=== PATIENT | female | born 1945 | race Caucasian/White ===

== ENCOUNTER → 2019-02-17 12:00 | Outpatient (CLI) | payer MEDICARE, SELFPAY ==
--- NOTE | 2019-02-17 12:09 | BI_ITS ---
MAMMOGRAPHY - BILATERAL SCREENING REASON FOR EXAM: Female, 73 years old. Routine annual screening examination. PERTINENT HISTORY: Non-contributory. TECHNIQUE: Digital bilateral breast thomas (3D mammographic acquisition) in the CC and MLO projections. 2-D mediolateral oblique (MLO) and craniocaudad (CC) views of both breasts were obtained. CAD: Full Field Digital Mammography with Computer Added Detection was performed. COMPARISON: Comparison is made with prior outside examination of November 28, 2016. FINDINGS: Breast Composition: There are scattered areas of fibroglandular density. There are no dominant masses or suspicious calcifications. No other significant abnormalities are identified. There has been no significant change since the prior study. BI/SCREEN MAMM (CAD) W/THOMAS BILAT IMPRESSION: Stable bilateral screening mammogram. Yearly follow-up mammogram recommended. (A) ASSESSMENT CATEGORY: BIRADS Category 1: Negative. A letter regarding these results will be sent to the patient by the facility within 30 days. Approximately 10% of breast cancers are not detected by mammography. A normal mammogram should not delay biopsy of a clinically suspicious abnormality. [id number] Electronically Signed: Elbert Givens, at 12:59 EST , Service support ,
== END ==
PROVIDERS: Family Provider Family Medicine; PCP Family Medicine; Referring Provider Obstetrics & Gynecology; Visit Provider Obstetrics & Gynecology
DX: Z12.31 Encounter for screening mammogram for malignant neoplasm of breast (principal)
CPT/HCPCS: 77063; 77067

== ENCOUNTER → 2019-08-03 | Outpatient (CLI) | payer MEDICARE, SELFPAY ==
--- NOTE | 2019-08-03 09:49 | BD_ITS ---
STUDY: DUAL ENERGY X-RAY ABSORPTIOMETRY / DXA REASON FOR EXAM: Female, 74 years old. ELEVATOR TECHNICIAN- EARLY AT 43 YRS OLD -- HX OF HRT IN PAST -- TAKES THYROID MEDICATION -- TAKES CALCIUM AND MULTIVITAMIN -- DOES MODERATE AMOUNT OF EXERCISE -- FAMILY HX OF OSTEO- MOTHER AND FATHER -- NO LESLY TECHNIQUE: Bone Mineral Density (BMD) measurements of lumbar spine and bilateral hips were obtained. COMPARISON: None. FINDINGS: Lumbar Spine (L1-L4): g/cm2 (1.125) / T-score (0.5) / Z-score (1.3) Findings are suggestive of normal bone density with a low fracture risk. Left Femur Total: g/cm2 (0.964) / T-score (-0.3) / Z-score (1.3) Left Femoral Neck: g/cm2 (0.816) / T-score (-1.6) / Z-score (0.2) Right Femur Total: g/cm2 (0.998) / T-score (-0.1) / Z-score (1.8) Right Femoral Neck: g/cm2 (0.866) / T-score (-1.2) / Z-score (0.6) BD/Dexa Bone Density Study IMPRESSION: The patient is considered osteopenic as outlined below according to World Michael Organization (WHO) criteria with a moderate fracture risk. Reference Information: The T-score is the number of standard deviations above or below the standard which is normal for young adults at their peak bone mineral density. The World Health Organization (WHO) interprets the T-scores as follows: Above -1 Normal bone density Between -1 and -2.5 Osteopenia Equal to / or below -2.5 Osteoporosis As a practical clinical guideline, osteopenia may be graded as follows: Mild -1 through -1.5 Moderate -1.6 through -2.0 Severe -2.1 through -2.4 The Z-score is the number of standard deviations above or below age-matched controls. A Z-score of less than -1.5 would be considered abnormal. References: 1. NIH Osteoporosis and Related Bone Diseases http://www.osteo.org 2. International Society for Clinical Densitometry http://www.iscd.org 3. National Osteoporosis Foundation http://www.nof.org Electronically Signed: Elbert Givens, at 8:52 EDT , Service support ,
--- NOTE | 2019-08-03 10:08 | ECHOCS_ITS ---
Reason For Study: Mitral Valve Prolapse Procedure This was a 2D Doppler, Color Flow transthoracic echocardiogram. The study was technically difficult. Contrast injection was performed. Exam performed in department. Left Ventricle Normal LV size. Left ventricular systolic function is normal. The estimated ejection fraction is 60 %. No evidence for diastolic dysfunction. No regional wall motion abnormalities noted. Right Ventricle Normal RV size. Normal systolic function. Atria Normal left atrium. Normal right atrium. No doppler evidence for ASD. Mitral Valve There is no mitral annular calcification. Normal mitral valve. Mild (1+) mitral valve insufficiency. Tricuspid Valve Normal tricuspid valve. Trivial tricuspid valve insufficiency. Right ventricular systolic pressure estimated to be 23 mmHg. Aortic Valve Trisinus/trileaflet aortic valve. Normal aortic valve. Trivial aortic valve insufficiency. Pulmonic Valve The pulmonic valve is not well visualized. Trivial pulmonic valve insufficiency. Great Vessels Normal sized aortic root. Pericardium/Pleural No pericardial effusion. Medication 22 gauge I.V. with prn adaptor inserted into right arm. Diluted definity 2ml given slow IV push to enhance endocardial definition. MMode/2D Measurements & Calculations LVIDd: 4.6 cm IVSd: 0.91 cm Ao root diam: 3.0 cm LVIDs: 2.9 cm LVPWd: 0.96 cm RVDd: 3.1 cm FS: 36.3 % LAV(MOD-bp): 29.4 ml LVAd ap4: 25.8 cm2 SV(MOD-sp4): 50.3 ml LAV(MOD-bp) Indexed: 16.9 ml/m2 EDV(MOD-sp4): 77.1 ml LAV(MOD-sp2): 31.7 ml EDV(sp4-el): 80.1 ml LAV(MOD-sp4): 25.0 ml LVAs ap4: 13.9 cm2 ESV(MOD-sp4): 26.8 ml ESV(sp4-el): 27.0 ml EF(MOD-sp4): 65.2 % EF(sp4-el): 66.3 % SV(sp4-el): 53.1 ml LA A4 area: 11.0 cm2 LA dimension(2D): 3.6 cm RA A4 area: 8.9 cm2 Time Measurements MV dec time: 0.19 sec Doppler Measurements & Calculations MV E max brandon: 59.1 cm/sec Lat Peak E' Brandon: 7.4 cm/sec Med Peak E' Brandon: 7.2 cm/sec MV A max brandon: 91.7 cm/sec E/E' lat: 7.9 E/E' med: 8.2 MV E/A: 0.64 Ao V2 max: 109.8 cm/sec AI max brandon: 341.5 cm/sec LV V1 max: 91.4 cm/sec Ao max P.8 mmHg AI max P.7 mmHg LV V1 max P.3 mmHg AI dec slope: 186.0 cm/sec2 AI P1/2t: 537.7 msec PA V2 max: 76.9 cm/sec TR max brandon: 224.5 cm/sec TR max P.2 mmHg Interpretation Summary The study was technically difficult. Contrast injection was performed. Left ventricular systolic function is normal. The estimated ejection fraction is 60 %. Mild (1+) mitral valve insufficiency. Trivial tricuspid valve insufficiency. Trivial aortic valve insufficiency. Trivial pulmonic valve insufficiency. Right ventricular systolic pressure estimated to be 23 mmHg. No evidence for diastolic dysfunction. Ordering Physician: Odalys Garcia Referring Physician: Odalys Garcia Performed By: Jade Das RDCS
== END | disposition home or self-care (01) ==
PROVIDERS: PCP Internal Medicine; Referring Provider Internal Medicine; Visit Provider Internal Medicine
DX: I34.1 Nonrheumatic mitral (valve) prolapse (principal); Z78.0 Asymptomatic menopausal state
CPT/HCPCS: 77080; 93306; Q9957; A4216; C8929

== ENCOUNTER 2020-03-08 10:23 | Observation (INO) | payer MEDICARE, SELFPAY ==
[2020-03-08 10:23] VITALS: BP 174/72; PULSE 79; RESP 20; TEMP 36.2; O2SAT 97; BMI 26.5
--- NOTE | 2020-03-08 10:28 | ED.RN ---
PT'S DAUGHTER BHUPENDRA EM WOULD LIKE UPDATES [phone]
--- NOTE | 2020-03-08 10:31 | NURSING ---
NO OLD EKGS
--- NOTE | 2020-03-08 10:39 | EKG12_ITS ---
Test Reason : CP Blood Pressure : / mmHG Vent. Rate : 072 BPM Atrial Rate : 072 BPM P-R Int : 160 ms QRS Dur : 072 ms QT Int : 422 ms P-R-T Axes : 033 025 026 degrees QTc Int : 462 ms Normal sinus rhythm Normal ECG Confirmed by LEANNE MARTINEZ, TATE ([id number]), resource economist TELMA HAM ([id number]) on 03/13/2020 11:03:31 AM Referred By: Confirmed By:RALPH PERDOMO MD
--- NOTE | 2020-03-08 10:45 | ED.VIS.GEN ---
History of Present Illness Chief Complaint: Chest Pain Informant: Patient Narrative: 74-year-old female presenting with chest pain. She states at about 9:00 she started having a sharp chest pain in the right side of her chest which bent her over. She states it started to feel like pressure. She denies any radiation of the pain. Prior to this event she was well. She relates that she thought it was her mitral valve flaring up. She states she has not a flareup in this in 10 years. Denies fever, cough, shortness of breath. No leg swelling. No history of DVT/PE. Past Medical History - Allergies and Home Meds Allergies/Adverse Reactions: Allergies No Known Allergies Allergy (Verified 03/08/20 10:23) Prior records reviewed: No Past Medical History: - - Benign positional vertigo, hypertension, insomnia, nonrheumatic mitral valve prolapse Surgical History: noncontributory Lives: Alone Smoking Status: Never smoker Alcohol: None Drugs: None - Family History Paternal Family History: Reports: Heart Disease Review of Systems General: Denies: Chills, Fever, Malaise Eyes: Denies: Visual changes - bilaterally, Diplopia ENT: Denies: Rhinorrhea, Sore throat Cardiovascular: Reports: Chest pain, Heart racing Respiratory: Denies: Dyspnea, Cough, Sputum Gastrointestinal: Denies: Abdominal pain, Nausea, Vomiting Genitourinary: Denies: Dysuria, Hematuria Musculoskeletal: Denies: Myalgias, Arthralgias Skin: Denies: Rash, Abscess Neurological: Denies: Headache, Parasthesia, Numbness Psych: Denies: Depression, Anxiety Physical Exam Vital Signs/Narrative: Vital Signs Temp Pulse Resp BP Pulse Ox 03/08/20 10:23 97.2 F L 79 20 H 174/72 H 97 Inital Vital Signs reviewed: Yes General: Well nourished, No Acute Distress Head: Normocephalic, Atraumatic Eyes: Perrl, EOMI. Negative for: Pale conjunctiva ENT: Moist mucous membranes, No rhinorrhea Cardiovascular: Regular rate, Regular rhythm Respiratory: No distress, CTA bilaterally Abdomen: Soft, Nontender, Nondistended Extremities: Nontender, No edema Skin: Normal color, No rash. Negative for: Cyanosis, Diaphoresis Neurological: Alert, Oriented x3, Cranial nerves II-XII grossly intact Psychological: Normal affect, Normal Mood Diagnostic/Tx/Re-eval - Rhythm Strip Rhythm Strip: Sinus Rhythm Rate: 72 - EKG Initial EKG Interpretation: Sinus Rhythm, No Acute Injury Pattern - Medical Decision Making 74-year-old female with history of hypertension and mitral valve prolapse presents for chest pain on the right side of her chest.. The patient states that her pain was 10 but is now 1. She was given aspirin. EKG performed on arrival shows a sinus rhythm of 72 bpm without signs of ischemic change as interpreted by myself. Chest x-ray is negative for acute findings as interpreted by myself. Patient's D-dimer was elevated and had CTA which was negative for acute findings heart score is 4. Discussed with hospitalist who will admit the patient for observation. Patient given aspirin. 24 mg. Patient admitted to the floor in stable condition. Impression: 1. Chest pain ED Disposition - Plan for ED Patient: Disposition: Acute [facility]
[2020-03-08] MEDS: Aspirin 81 MG TAB.CHEW 324 MG PO (10:47)
[2020-03-08 10:53] LABS: Absolute Neutrophil Count 4.5 X10^3/uL (2.0-7.7); Basophil# 0.04 X10^3/uL; Basophil% 0.6 % (0-1); Eosinophil# 0.14 X10^3/uL; Eosinophils% 2.1 % (0-5); Hematocrit 40.2 % (37-47); Hemoglobin 13.4 g/dL (12.0-15.0); Lymphocyte % 25.1 % (19-41); Mean Corp Hgb Conc 33.3 g/dL (32-36); Mean Corpuscular Hgb 30.2 pg (27.0-32.0); Mean Corpuscular Volume 90.5 fL (81-99); Mean Platelet Vol. 10.8 fl (6.2-12.0); Monocyte# 0.41 X10^3/uL; Monocyte% 6.1 % (0-10); NRBC Flagged by Analyzer 0 % (0-5); Neutrophil # 4.45 X10^3/uL (2.7-7.7); Neutrophil % 65.8 % (47-70); Platelet Count 308 K/mm3 (150-450); RBC Distribution Width CV 11.6 % (11.6-14.6); RBC Distribution Width SD 38.3 fl (35.1-43.9); Red Blood Count 4.44 M/mm3 (4.2-5.4); White Blood Count 6.8 K/mm3 (4.4-11.0)
--- NOTE | 2020-03-08 11:00 | RAD_ITS ---
STUDY: X-RAY CHEST REASON FOR EXAM: Female, 74 years old. PT C/O RIGHT SIDED CHEST PAIN/UPPER ABD, LEFT HAND WEAKNESS TECHNIQUE: Single AP portable view of the chest. COMPARISON: None. FINDINGS: EKG electrodes are seen. The lungs are clear and expanded. There is no demonstrated pleural abnormality. Normal size heart. Normal mediastinum and dameon. Normal visualized pulmonary arteries. Normal visualized aortic arch and descending thoracic aorta. Normal visualized thoracic spine. Normal visualized ribs, clavicles, and shoulders. There is no demonstrated abnormality of the visualized soft tissue structures of the upper abdomen. RAD/Chest 1 View (Portable) IMPRESSION: Normal x-ray examination of the chest. Electronically Signed: Elbert Givens MD at 11:48 EST , Service support ,
[2020-03-08 11:18] LABS: Anion Gap 6 (5-15); BUN 12 mg/dL (7-18); BUN/Creat Ratio 14.1 RATIO (10-20); Chloride 106 mmol/L (98-107); Creatinine, Serum 0.85 mg/dL (0.55-1.02); EST Glomerular Filtration Rate 69 mL/min (>60); Est Glom Filt Rate - Afr Amer 84 mL/min (>60); Estimated Creatinine Clearance 48.76 ml/min; Glucose 96 mg/dL (74-106); Potassium 3.7 mmol/L (3.5-5.1); Sodium Level 141 mmol/L (136-145)
[2020-03-08 11:29] LABS: D-Dimer Quantitative (DVT/PE) 1.54 FEU/ug/m (0.27-0.49)
--- NOTE | 2020-03-08 11:35 | CT_ITS ---
STUDY: CTA CHEST REASON FOR EXAM: Female, 74 years old. R SIDED CP/UPPER ABD PAIN. ELEVATED D-DIMER. RADIATION DOSAGE (If Supplied By Facility): CTDIvol = ( 8.04 ) mGy, DLP = ( 343.69 ) mGycm TECHNIQUE: The examination was performed with the intravenous administration of IV 100mL Isovue-300. Post-processing of the angiographic images was performed, with multiplanar reformation and 3D reconstruction. Individualized dose optimization techniques were used for this CT. COMPARISON: Comparison is made with prior chest radiograph done earlier today. FINDINGS: Small benign appearing bilateral axillary lymph nodes. Normal enhancement of the main pulmonary artery and right and left pulmonary arteries. Normal enhancement of the bilateral peripheral pulmonary arteries. There is no demonstrated pulmonary embolism. Normal thoracic aorta and visualized great vessels. There is no demonstrated aortic dissection. Normal heart and pericardium. Normal mediastinum. Normal hilar regions. Normal visualized trachea and bronchi. The lungs are well expanded. Normal pulmonary parenchyma. Normal pleura. Normal chest wall structures. There are degenerative changes of thoracic spine. Normal visualized upper abdomen. CT/CTA Chest W/WO Contrast IMPRESSION: Normal CTA chest examination, without a demonstrated pulmonary embolism or arterial dissection. Electronically Signed: Elbert Givens MD at 12:12 EST , Service support ,
[2020-03-08 12:03] VITALS: BP 173/98; PULSE 74; RESP 18; O2SAT 95
--- NOTE | 2020-03-08 12:44 | PCM.HP.STD ---
Problem List (1) Atypical chest pain Status: Acute (2) Hypertension Status: Chronic (3) Dyslipidemia Status: Chronic (4) Mitral valve prolapse Status: Chronic (5) Carpal tunnel syndrome on both sides Status: Chronic History of Present Illness Date of Admission: 03/08/20 Chief Complaint: Right-sided chest pain today The patient is a 74 year old F with no prior history of coronary artery disease came to ER with right-sided chest pain when she bent down to lift the mat/carpet. It is localized pain, 8/10 intensity, lasted for about 10 to 15 minutes without radiation. It is not associated with shortness of breath, palpitation, near syncope or syncope. No diaphoresis. In the morning patient also felt transient momentary weakness of left hand but it got better. Patient stated she has history of bilateral carpal tunnel syndrome. No hemiparesis or monoparesis or hemisensory loss. No facial weakness or change in speech or visual changes. Blood pressure was high in ED, 174/72, 173/98. Patient said her blood pressure was high in the past but currently is normal at home in 110s/120s. She was on lisinopril in the past but PCP gradually tapered off because of low blood pressure Patient gets tired and winded on walking 3 flights of stairs. Twelve-lead EKG shows normal sinus rhythm at 72 beats per. QTC 462 ms. First troponin negative. D-dimer elevated 1.54. Patient had CTPA which showed no PE or aortic dissection or aneurysm. [] Past Medical History Past Medical History (Chronic Problems): Chronic Problems Hypertension (Chronic) Dyslipidemia (Chronic) Mitral valve prolapse (Chronic) Carpal tunnel syndrome on both sides (Chronic) Allergies No Known Allergies Allergy (Verified 03/08/20 10:23) Home Medications: Ambulatory Orders Medication Instructions Recorded Etodolac 400 mg PO PRN PRN 03/08/20 Levothyroxine [Synthroid] 25 mcg PO DAILY 03/08/20 Meclizine HCl 25 mg PO PRN PRN 03/08/20 [place]-3 Fatty Acids/Fish Oil [Fish 1 ea PO DAILY 03/08/20 Oil 1,000 mg Capsule] Potassium 99 mg PO DAILY 03/08/20 Simvastatin 10 mg PO QHS 03/08/20 traZODone [Desyrel] 50 mg PO QHS 03/08/20 Surgical History: noncontributory Lives: Alone Smoking Status: Never smoker Alcohol: None Drugs: None - *Family History Paternal History Items: Heart Disease Review of Systems Constitutional: Denies: Chills, Fever, Weight Change HEENT: Denies: Head Aches, Sinus Congestion, Sinus Drainage Cardiovascular: Reports: Chest Pain. Denies: Palpitations Respiratory: Denies: Cough, Shortness of breath at rest, Sputum production Gastrointestinal: Denies: Abdominal Pain, Nausea, Vomiting Genitourinary: Denies: Dysuria, Frequency, Hematuria, Hesitancy Musculoskeletal: Denies: Joint Pain, Joint Tenderness Skin: Denies: Rash, Wounds Neurological: Denies: Numbness, Tingling, Focal weakness Psychiatric: Denies: Anxiety, Depression, Homicidal Ideations, Suicidal Ideations Hematologic/ Lymphatic: Denies: Easy Bruising, Easy Bleeding VTE Information - Inpt Only VTE Present on Admission: No VTE Mechan Device Prophylaxis: None VTE Pharm Prophylaxis ordered?: Yes - Physical Exam Vitals/I&O's: Vital Signs Temp Pulse Resp BP Pulse Ox 97.2 F L 74 18 173/98 H 95 03/08/20 10:23 03/08/20 12:03 03/08/20 12:03 03/08/20 12:03 03/08/20 12:03 Oxygen Flow Rate (L/min) 97 Oxygen Delivery Method Room Air Weight: 150 lb Body Mass Index (BMI) 26.5 General: Alert, Oriented x3, Cooperative HEENT: Atraumatic, PERRLA, EOMI, Normocephalic Neck: Supple, No JVD, Negative Carotid Bruits Lungs: Clear to auscultation, Normal air movement, No rhonchi, No wheeze, No rales Cardiovascular: Regular rate, Regular Rhythm, Normal S1, Normal S2, No murmurs Abdomen: Bowel Sounds Present, Soft, Non Tender, Non-Distended, - - : No suprapubic tenderness or fullness. Denies dysuria Extremities: No edema, Capillary Refill Less than 3 Seconds Skin: No rashes, No breakdown Musculoskeletal: No Tenderness to Palpation of Joints or Extremities Neurological: Cranial nerves II-XII grossly intact, Deep Tendon Reflexes 2+/4 and Symmetrical, Neuro grossly intact, Motor Exam 5/5 strength throughout Psych/Mental Status: Normal Affect, Appropriate Laboratory Results 03/08/20 10:45: WBC 6.8, RBC 4.44, Hgb 13.4, Hct 40.2, MCV 90.5, MCH 30.2, MCHC 33.3, RDW Std Deviation 38.3, RDW Coeff of Claude 11.6, Plt Count 308, MPV 10.8, Immature Gran % (Auto) 0.300, Neut % (Auto) 65.8, Lymph % (Auto) 25.1, [place] % (Auto) 6.1, Eos % (Auto) 2.1, Baso % (Auto) 0.6, Absolute Neuts (auto) 4.5, Absolute Lymphs (auto) 1.70, Nucleated RBC % 0 03/08/20 10:45: Sodium 141, Potassium 3.7, Chloride 106, Carbon Dioxide 29.0, Anion Gap 6, BUN 12, Creatinine 0.85, Estim Creat Clear Calc 48.76, Est GFR (MDRD) Af Amer 84, Est GFR (MDRD) Non-Af 69, BUN/Creatinine Ratio 14.1, Glucose 96, Calcium 9.0, Troponin I < 0.015 03/08/20 10:45: D-Dimer Quant (PE/DVT) 1.54 H* Assessment/Plan All Active Problems Atypical chest pain (Acute) The patient is a 74 year old F with no prior history of coronary artery disease came to ER with right-sided chest pain when she bent down to lift the mat/carpet. It is localized pain, 8/10 intensity, lasted for about 10 to 15 minutes without radiation. It is not associated with shortness of breath, palpitation, near syncope or syncope. No diaphoresis. In the morning patient also felt transient momentary weakness of left hand but it got better. Patient stated she has history of bilateral carpal tunnel syndrome. No hemiparesis or monoparesis or hemisensory loss. No facial weakness or change in speech or visual changes. Twelve-lead EKG shows normal sinus rhythm at 72 beats per. QTC 462 ms. First troponin negative. D-dimer elevated 1.54. Patient had CTPA which showed no PE or aortic dissection or aneurysm. [] 1. Atypical chest pain: She is admitted in PCU. Serial troponin enzymes. Heart score is 4. GERARDO risk score 2. Low risk. Repeat EKG. Treadmill nuclear stress test tomorrow a.m. Fasting profile and TSH tomorrow a.m. 2. History of mitral valve prolapse: She had 2D echo in July [address] Garcia. Mitral valve reported normal. Mild MR. No evidence of diastolic function. Left ventricular systolic function is normal.The estimated ejection fraction is 60 %. 3. Uncontrolled hypertension: Start on HCTZ 25 mg daily and see the response. Hydralazine 10 mg IV for systolic blood pressure more than 180 mmHg. Currently patient does not not seem to have any endorgan damage. 4. Hypothyroidism: On low-dose levothyroxine 25 mcg daily. TSH and free T4 tomorrow a.m. 5 other comorbidities include chronic bilateral carpal tunnel syndrome, arthritis, BPPV, dyslipidemia anxiety and depression: Patient has localized left hand transient weakness but has recovered. If she has major issues like weakness or hemisensory, will do stroke work-up. On my exam, I am not concerned of a TIA/stroke. Patient on etodolic, trazodone, simvastatin at home. VTE prophylaxis: Lovenox 40 mils subcu daily. Living will/advanced directive/end of life care: Patient does have living will or advanced directive. Her daughter is the power of admitted attorneys for health. After discussion of benefits/risks procedures involved with full code, DNR CC arrest and DNR CC, the patient opted for full code. Patient does want artificial life support including intubation, tube feed, ventilator and/chest compression, central venous catheter, vasopressor and DC shock if needed Total time spent in [id number] encounter in discussion of advanced directive 16 minutes. OBSV E&M: 39826 Initial observation care L3 Procedures: 29552 Advncd Care Plan 30 Min
[2020-03-08 12:47] VITALS: BP 175/110; PULSE 76; RESP 18; TEMP 37; O2SAT 95
--- NOTE | 2020-03-08 13:25 | EKG12_ITS ---
Test Reason : REPEAT CHEST PAIN Blood Pressure : / mmHG Vent. Rate : 069 BPM Atrial Rate : 069 BPM P-R Int : 176 ms QRS Dur : 080 ms QT Int : 438 ms P-R-T Axes : 030 008 054 degrees QTc Int : 469 ms Normal sinus rhythm ST & T wave abnormality, consider anterior ischemia Abnormal ECG No previous ECGs available Confirmed by LEANNE MARTINEZ, TATE ([id number]), news copy editor TELMA HAM ([id number]) on 03/13/2020 12:52:15 PM Referred By: CHRISTOPHER Confirmed By:RALPH PERDOMO MD
[2020-03-08 13:43] VITALS: BMI 28.0; BMI 28.1
[2020-03-08 14:00] VITALS: BP 122/58; PULSE 71; PULSE 84; RESP 18; TEMP 36.5; O2SAT 94
[2020-03-08 14:07] LABS: Magnesium 2.3 mg/dL (1.6-2.6)
[2020-03-08 15:22] VITALS: PULSE 70
[2020-03-08] MEDS: hydroCHLOROthiazide 25 MG Tablet PO (15:57)
[2020-03-08] MEDS: Enoxaparin 40 MG/0.4 ML Syringe SC (15:57)
[2020-03-08] MEDS: Acetaminophen 325 MG Tablet 650 MG PO (17:50)
[2020-03-08 21:00] VITALS: BP 157/71; PULSE 67; RESP 17; TEMP 36.8; O2SAT 96
[2020-03-08] MEDS: traZODone 50 MG Tablet PO (21:54)
[2020-03-08] MEDS: Atorvastatin Calcium 40 MG Tablet PO (21:55)
[2020-03-09 03:00] VITALS: BP 154/69; PULSE 64; RESP 17; TEMP 37; O2SAT 97
[2020-03-09 05:30] LABS: Anion Gap 6 (5-15); BUN 13 mg/dL (7-18); BUN/Creat Ratio 14.9 RATIO (10-20); Calcium,Total 8.8 mg/dL (8.5-10.1); Chloride 106 mmol/L (98-107); Cholesterol 179 mg/dL (200); Creatinine, Serum 0.88 mg/dL (0.55-1.02); EST Glomerular Filtration Rate 67 mL/min (>60); Est Glom Filt Rate - Afr Amer 81 mL/min (>60); Glucose 88 mg/dL (74-106); High Density Lipoprotein 79 mg/dL; Potassium 3.4 mmol/L (3.5-5.1); Sodium Level 141 mmol/L (136-145); Thyroid Stim Hormone (TSH) 5.32 uIU/mL (0.358-3.74); Triglycerides 99 mg/dL; Very Low Density Lipoprotein 20 mg/dL (5-40)
[2020-03-09 07:36] VITALS: PULSE 59
[2020-03-09 07:43] VITALS: O2SAT 98
[2020-03-09] MEDS: hydroCHLOROthiazide 25 MG Tablet PO (10:29)
[2020-03-09] MEDS: Acetaminophen 325 MG Tablet 650 MG PO (10:34)
--- NOTE | 2020-03-09 11:25 | DCINST_ITS ---
- Discharge Diagnoses Current Active Problems: Current Active and Chronic Problems Atypical chest pain (Acute) Hypertension (Chronic) Dyslipidemia (Chronic) Mitral valve prolapse (Chronic) Carpal tunnel syndrome on both sides (Chronic) You will use the following diet at home:: Cardiac - Low-sodium diet Your food should be the consistency of: Regular Discharge Activity: May Not Drive - Follow-up with PCP Weight Bearing Status: Weight bearing as tolerated Call your doctor if you observe: Fever of 101 or Higher, Numbness or Tingling, Change in Color, Inability to urinate, Inability to have a bowel movement, Using more than one pad per hour, Shortness of breath, Dizziness, Fainting spells, Swelling in the ankles, Chest pain, Prolonged hiccoughing, Increased palpitations (irregular heartbeat), Calf discomfort, Uncontrolled pain Suture Line Care: Avoid Pulling/Pushing Allergies/Adverse Reactions: Allergies No Known Allergies Allergy (Verified 03/08/20 10:23) Medications to take at Discharge Etodolac 400 mg PO PRN PRN 03/08/20 Meclizine HCl 25 mg PO PRN PRN 03/08/20 [place]-3 Fatty Acids/Fish Oil [Fish Oil 1,000 mg Capsule] 1 ea PO DAILY 03/08/20 Potassium 99 mg PO DAILY 03/08/20 traZODone [Desyrel] 50 mg PO QHS 03/08/20 Hydrochlorothiazide [Hctz] 25 mg PO DAILY #30 tablet 03/09/20 Levothyroxine [Synthroid] 50 mcg PO DAILY #0 03/09/20 Simvastatin 10 mg PO QHS #0 03/09/20 Primary Care Physician: Odalys Garcia DO [Primary Care Provider] - Please follow up with your Primary Care Physician in: in 2 weeks Test Results: Test results from this visit will be discussed in further detail at your follow- up appointment, if applicable.
[2020-03-09 11:27] VITALS: BP 142/67; PULSE 70; RESP 16; TEMP 37.2; O2SAT 99
--- NOTE | 2020-03-09 15:09 | PHA.DC.MC ---
Pharmacy Service has performed discharge medication reconciliation and counseling for this patient. 1. HYDROCHLOROTHIAZIDE 25MG PO DAILY The patient's discharge medication list was reviewed for discrepancies and discrepancies were resolved. New prescriptions were not sent to a pharmacy. This [facility] notified Dr. Shay via coretext but have not heard back at the time of this note writing. Pharmacy has been added in chart and medications will need resent. Nurse also updated. Home Medications Etodolac 400 mg PO PRN PRN 03/08/20 Meclizine HCl 25 mg PO PRN PRN 03/08/20 [place]-3 Fatty Acids/Fish Oil [Fish Oil 1,000 mg Capsule] 1 ea PO DAILY 03/08/20 Potassium 99 mg PO DAILY 03/08/20 traZODone [Desyrel] 50 mg PO QHS 03/08/20 Hydrochlorothiazide [Hctz] 25 mg PO DAILY #30 tab 03/09/20 Levothyroxine [Synthroid] 50 mcg PO DAILY #0 03/09/20 Simvastatin 10 mg PO QHS #0 03/09/20 The patient was counseled on the following discharge medications and changes in medications for homegoing were reviewed. The Reason for Use, instructions for use, and potential side effects were reviewed for all new medications. The patient's questions regarding all of their medications were answered. The patient was able to verbally demonstrate an understanding of their discharge medications. Patient counseled by pharmacy laboratory technicianBen.
--- NOTE | 2020-03-09 15:28 | NURSING ---
pts daughter here and upset that is taking so long pt in bed and resting. weigher and charger aware and pt as well as that waiting on brooch maker novelty to make the reading.
[2020-03-09 16:10] VITALS: BP 144/70; PULSE 69; RESP 16; TEMP 36.8; O2SAT 99
--- NOTE | 2020-03-09 17:02 | PCM.DC.SUM ---
Discharge Date and Diagnosis - Problem List Patient Problems: Active and Suspected Problems Atypical chest pain (Acute) Date of Admission: 03/08/20 Date of Discharge: 03/09/20 - Primary Discharge Diagnosis Acute Problems: Active Problems Atypical chest pain (Acute) - Secondary Discharge Diagnosis Chronic Problems: Chronic Problems Hypertension (Chronic) Dyslipidemia (Chronic) Mitral valve prolapse (Chronic) Carpal tunnel syndrome on both sides (Chronic) Hospital Course and Treatment Imaging Results: 03/09/20 05:55 Nuclear Stress Test - Chemical [NM] AM (NON MEDS) Summary of Care Provided: The patient is a 74 year old F was admitted with right-sided chest pain when she lifted the carpet. Chest pain was localized with no radiation not associated with shortness of breath or palpitation or near syncope. Patient was admitted in PCU. Twelve-lead EKG shows normal sinus rhythm at 72 bpm. Serial troponin enzymes were negative. GERARDO risk score 2. Repeat EKG did not show any significant ST-T change. Pharmacological nuclear stress test was done and reported no stress-induced ischemia. Patient had elevated blood pressure in ER 174/72 and HCTZ 25 mg started. Subsequently blood pressure is better controlled 144/70. Patient had mild hypokalemia, K3.4 and potassium replaced. Fasting profile within normal limit, LDL 80, HDL 79. TSH mildly elevated 5.32. Patient Synthroid dose was increased from 25 to 50 mcg daily. Patient already on potassium supplement. Prescription was given for HCTZ. Patient recently had 2D echo in July 2019 which reported mild MR with normal mitral valve with no annular calcification. Left ventricular systolic function is normal. The estimated ejection fraction is 60 %. Mild (1+) mitral valve insufficiency. Trivial tricuspid valve insufficiency. Trivial aortic valve insufficiency. Trivial pulmonic valve insufficiency. Right ventricular systolic pressure estimated to be 23 mmHg. No evidence for diastolic dysfunction. Discharge medication reconciliation done. Discharge follow-up instructions completed. Discharge process discussed with the patient and all questions were answered to patient's satisfaction. Work-up done in the hospital, stress test, labs and discharge medications discussed with the patient's daughter on the phone in the presence of patient. Total time spent, exact 35 minutes on discharge meds reconciliation, examination, coordination of care with nurses and ancillary staff, review of imaging and blood test and discussion with the patient on follow-up instructions [] Patient Problems: Active and Suspected Problems Atypical chest pain (Acute) Objective: Seen and examined. Patient did not have a chest pain, shortness of breath or palpitation. On stand grinder shows sinus rhythm with PVCs. Physical exam General: Alert, Oriented x3, Cooperative HEENT: Atraumatic, PERRLA, EOMI, Normocephalic Oral: No Gingival or Mucosal Lesions/ Ulcerations Neck: Supple, No JVD, Negative Carotid Bruits Lungs: Air entry diminished in bilateral lung bases. No crepitation/rhonchi Cardiovascular: Regular rate, Regular Rhythm, Normal S1, Normal S2, No murmurs Abdomen: Bowel Sounds Present, Soft, Non Tender, Non-Distended : No renal angle tenderness. No suprapubic tenderness. Extremities: Mild bilateral nonpitting ankle edema, Capillary Refill Less than 3 Seconds Skin: No rashes, No breakdown Musculoskeletal: No Tenderness to Palpation of Joints or Extremities Neurological: Cranial nerves II-XII grossly intact, Deep Tendon Reflexes 2+/4 and Symmetrical, Neuro grossly intact Psych/Mental Status: Normal Affect, Appropriate. - Physical Exam Vitals/I&O's: Vital Signs Temp Pulse Resp BP Pulse Ox 98.6 F 59 L 17 154/69 H 98 03/09/20 03:00 03/09/20 07:36 03/09/20 03:00 03/09/20 03:00 03/09/20 07:43 Oxygen Flow Rate (L/min) 97 Oxygen Delivery Method Room Air Weight: 158 lb 8 oz Body Mass Index (BMI) 28.0 Intake and Output for Last 24 Hours 03/07/20 03/08/20 03/09/20 23:59 23:59 23:59 Intake Total 520 / 520 Balance 520 / 520 Laboratory Results 03/08/20 10:45: Magnesium 2.3 03/08/20 10:45: D-Dimer Quant (PE/DVT) 1.54 H* 03/08/20 13:25: Magnesium Cancelled 03/08/20 13:46: Troponin I < 0.015 03/08/20 16:43: Troponin I < 0.015 03/09/20 04:32: Sodium 141, Potassium 3.4 L, Chloride 106, Carbon Dioxide 29.0, Anion Gap 6, BUN 13, Creatinine 0.88, Estim Creat Clear Calc 47.10, Est GFR (MDRD) Af Amer 81, Est GFR (MDRD) Non-Af 67, BUN/Creatinine Ratio 14.9, Glucose 88, Calcium 8.8, Triglycerides 99, Cholesterol 179, LDL Cholesterol 80, VLDL Cholesterol 20, HDL Cholesterol 79, TSH 5.32 H Current Medications Acetaminophen (Acetaminophen 325 Mg Tablet) 650 mg PO Q6H PRN PRN PRN Reason: Pain Score 1-10/Temp > 100.7 F Last Admin: 03/09/20 10:34 Dose: 650 mg Documented by: Al Hydroxide/Mg Hydroxide (Mag Hydrox/Al Hydrox/Simeth 30 Ml Udc) 30 ml PO Q6H PRN PRN PRN Reason: Gastric Burning Albuterol Sulfate (Albuterol 2.5 Mg/3 Ml Vial.Neb.) 2.5 mg INHALATION Q2H PRN PRN PRN Reason: SOB/Wheezing Aspirin (Aspirin E.C. 81 Mg Tablet) 81 mg PO DAILY@0800 [facility] Atorvastatin Calcium (Atorvastatin Calcium 40 Mg Tablet) 40 mg PO QHS [facility] Last Admin: 03/08/20 21:55 Dose: 40 mg Documented by: Enoxaparin Sodium (Enoxaparin 40 Mg/0.4 Ml Syringe) 40 mg SC DAILY [facility] Last Admin: 03/08/20 15:57 Dose: 40 mg Documented by: Hydralazine HCl (Hydralazine 20 Mg/Ml Vial) 10 mg IV Q4H PRN PRN PRN Reason: SBP more than 180 mmHg Hydrochlorothiazide (Hydrochlorothiazide 25 Mg Tablet) 25 mg PO DAILY [facility] Last Admin: 03/09/20 10:29 Dose: 25 mg Documented by: Levothyroxine Sodium (Levothyroxine 25 Mcg Tablet) 25 mcg PO DAILY@0600 [facility] Last Admin: 03/09/20 06:33 Dose: Not Given Documented by: Meclizine HCl (Meclizine Hcl 25 Mg Tablet) 25 mg PO Q6H PRN PRN Reason: DIZZINESS Melatonin (Melatonin 3 Mg Tablet) 3 mg PO QHS PRN PRN PRN Reason: INSOMNIA Morphine Sulfate (Morphine 2 Mg/Ml Syringe) 2 mg IV Q3H PRN PRN PRN Reason: Pain Score 6-10 Nitroglycerin (Nitroglycerin (Inpatient Use) 0.4 Mg Tab.Subl) 0.4 mg SUBLINGUAL Q5M PRN PRN Reason: CARDIAC/CHEST PAIN Oxycodone HCl (Oxycodone 5 Mg Tablet) 5 mg PO Q4H PRN PRN PRN Reason: Pain Score 4-5 Prochlorperazine Edisylate (Prochlorperazine 10 Mg/2 Ml Vial) 5 mg IV Q4H PRN PRN PRN Reason: Breakthrough Nausea/Vomiting Senna/Docusate Sodium (Senna/Docusate Sodium 1 Tablet) 2 tablet PO BID PRN PRN PRN Reason: Constipation Sodium Chloride (0.9% Saline Lock 10 Ml Syringe) 10 - 40 ml IV UD PRN PRN Reason: SALINE FLUSH Trazodone HCl (Trazodone 50 Mg Tablet) 50 mg PO QHS [facility] Last Admin: 03/08/20 21:54 Dose: 50 mg Documented by: Discharge Activity: May Not Drive - Follow-up with PCP Weight Bearing Status: Weight bearing as tolerated Call your doctor if you observe: Fever of 101 or Higher, Numbness or Tingling, Change in Color, Inability to urinate, Inability to have a bowel movement, Using more than one pad per hour, Shortness of breath, Dizziness, Fainting spells, Swelling in the ankles, Chest pain, Prolonged hiccoughing, Increased palpitations (irregular heartbeat), Calf discomfort, Uncontrolled pain Suture Line Care: Avoid Pulling/Pushing Home Medications: Medications to take at Discharge Etodolac 400 mg PO PRN PRN 03/08/20 Meclizine HCl 25 mg PO PRN PRN 03/08/20 [place]-3 Fatty Acids/Fish Oil [Fish Oil 1,000 mg Capsule] 1 ea PO DAILY 03/08/20 Potassium 99 mg PO DAILY 03/08/20 traZODone [Desyrel] 50 mg PO QHS 03/08/20 Hydrochlorothiazide [Hctz] 25 mg PO DAILY #30 tab 03/09/20 Levothyroxine [Synthroid] 50 mcg PO DAILY #0 03/09/20 Simvastatin 10 mg PO QHS #0 03/09/20 Following Prescriptions Were Given to Patient: Hydrochlorothiazide [Hctz] 25 mg PO DAILY #30 tab Transmission Status: Received by [id number] Primary Care Physician: Odalys Garcia DO [Primary Care Provider] - Please follow up with your Primary Care Physician in: in 2 weeks Medical Necessity - Tobacco Use Smoking Status: Never smoker Tobacco Use: Non-smoker Meaningful Use Info Meaningful Use Diagnoses (Choose all that apply): None applicable OBSV E&M: 06241 Observation care discharge
--- NOTE | 2020-03-12 15:38 | STRESSREP ---
Stress Test Report Date: 03/09/2020 Procedure: Pharmacologic stress nuclear imaging study Indications: Chest pain Consent: Per the patient Procedure: The patient underwent pharmacologic (Regadenoson) evaluation with a peak heart rate of [] beats per minute ([]%predicted maximal heart rate) and a peak blood pressure of [] mmHg. The baseline ECG demonstrated normal sinus rhythm. EKG during lexiscan infusion revealed no significant ischemic changes. EKG post infusion revealed no significant ischemic changes. [There were no cardiac dysrhythmias pretest, during pharmacologic infusion, or recovery]. [There was no complaint of chest discomfort during pharmacologic infusion or recovery]. The examination was discontinued secondary to completion of protocol. Impression: 1. Lexiscan stress test test is negative for Lexiscan infusion induced EKG changes of ischemia. 2. Lexiscan stress test test is negative for Lexiscan infusion induced chest pain. 3. Results of the nuclear portion of the test is as below Myocardial perfusion imaging study: Technique: The patient was injected with 11.1 millicuries of technetium 99m Cardiolite and subsequently rest SPECT Cardiolite nuclear imaging was obtained in the horizontal long, vertical long, and short axis views. The patient underwent pharmacologic [Regadenoson 0.4mg] evaluation. Please see above for details. The patient was injected with 32.9 millicuries of technetium 99m Cardiolite and subsequently stress SPECT Cardiolite nuclear imaging was obtained in the horizontal long, vertical long, and short axis views. A gated Cardiolite study at peak stress was obtained. Interpretation: Rest and stress SPECT Cardiolite nuclear imaging status post realignment, normalization, and attenuation correction demonstrate normal myocardial radioisotope uptake. Gated images reveal no regional wall motion abnormalities. The reported LVEF is greater than 70%. Impression: 1. There is no evidence of significant ischemia or infarction. 2. Estimated ejection fraction is greater than 70%. This note was generated with Compumatrixation software. It may contain incorrect words, spelling, and punctuation that were not noted in checking the note before signing.
== END 2020-03-09 11:27 | disposition home or self-care (01) ==
LOC: ED 11:14 → PCU 12:55
PROVIDERS: Admitting Provider Internal Medicine; Emergency Provider Student in an Organized Health Care Education/Training Program; PCP Internal Medicine; Visit Provider Internal Medicine
DX: R07.89 Other chest pain (principal); I10 Essential (primary) hypertension; Z79.899 Other long term (current) drug therapy; Z82.49 Family history of ischemic heart disease and other diseases of the circulatory system; R94.31 Abnormal electrocardiogram [ECG] [EKG]; E78.5 Hyperlipidemia, unspecified
CPT/HCPCS: 36415; 71045; 71275; 78452; 80048; 80061; 83735; 84443; 84484; 85025; 85379; 93005; 93017; 96372; 99218; 99251; 99285; A9500; Q9967; A4216; G0378; G0463; J2785

== ENCOUNTER → 2020-03-23 12:45 | Outpatient (CLI) | payer MEDICARE, SELFPAY ==
[2020-03-08 13:43] VITALS: BMI 28.0
--- NOTE | 2020-03-23 12:49 | CT_ITS ---
STUDY: CT BRAIN WITHOUT CONTRAST REASON FOR EXAM: Female, 74 years old. MEMORY LOSS, CONFUSION, HX VERTIGO RADIATION DOSAGE (If Supplied By Facility): CTDIvol = ( 44.99 ) mGy, DLP = ( 812.98 ) mGycm TECHNIQUE: Transaxial CT imaging of the brain was performed without administration of intravenous contrast material. Individualized dose optimization techniques were used for this CT. COMPARISON: No relevant priors. FINDINGS: Normal soft tissue structures. Normal calvarium. Normal size ventricles and extra-axial spaces for the patient''s age. There are areas of decreased attenuation within the white matter tracts of the supratentorial brain, consistent with microvascular disease changes. Normal basal ganglia and thalami. Normal brainstem. Normal cerebellum. There is no intracranial hemorrhage. There are no findings of an acute ischemic infarction. Normal visualized paranasal sinuses. CT/Brain/Head without Contrast IMPRESSION: Chronic involutional changes of the brain. Electronically Signed: Justin Gamboa MD at 14:08 EST Tel , Service support ,
== END ==
PROVIDERS: PCP Internal Medicine; Referring Provider Internal Medicine; Visit Provider Internal Medicine
DX: R41.3 Other amnesia (principal)
CPT/HCPCS: 70450

== ENCOUNTER → 2020-08-16 13:49 | Outpatient (CLI) | payer MEDICARE, SELFPAY ==
[2020-03-08 13:43] VITALS: BMI 28.0
--- NOTE | 2020-08-16 13:51 | BI_ITS ---
MAMMOGRAPHY - BILATERAL SCREENING REASON FOR EXAM: Female, 75 years old. Routine annual screening examination. PERTINENT HISTORY: Non-contributory. Remote right stereotactic breast biopsy. TECHNIQUE: Digital bilateral breast thomas (3D mammographic acquisition) in the CC and MLO projections. 2-D mediolateral oblique (MLO) and craniocaudad (CC) views of both breasts were obtained. CAD: Full Field Digital Mammography with Computer Added Detection was performed. COMPARISON: Comparison is made with prior study dated 02/17/2019. FINDINGS: Breast Composition: There are scattered areas of fibroglandular density. There are no dominant masses or suspicious calcifications. Stable small benign-appearing bilateral axillary lymph nodes. No other significant abnormalities are identified. There has been no significant change since the prior study. BI/SCRN MAMM (CAD)W/THOMAS BILAT IMPRESSION: Stable bilateral screening mammogram. Yearly follow-up mammogram recommended. (A) ASSESSMENT CATEGORY: BIRADS Category 2: Benign. A letter regarding these results will be sent to the patient by the facility within 30 days. Approximately 10% of breast cancers are not detected by mammography. A normal mammogram should not delay biopsy of a clinically suspicious abnormality. [id number] Electronically Signed: Elbert Givens MD at 14:35 EDT , Service support ,
== END ==
PROVIDERS: PCP Internal Medicine; Referring Provider Student in an Organized Health Care Education/Training Program; Visit Provider Student in an Organized Health Care Education/Training Program
DX: Z12.31 Encounter for screening mammogram for malignant neoplasm of breast (principal)
CPT/HCPCS: 77063; 77067

== ENCOUNTER 2021-03-01 11:14 | Outpatient (CLI) | payer MEDICARE, SELFPAY ==
--- NOTE | 2021-03-01 11:16 | US_ITS ---
STUDY: RENAL ULTRASOUND - COMPLETE REASON FOR EXAM: Female, 75 years old. Right flank pain. TECHNIQUE: Ultrasound evaluation of the kidneys was performed with real-time and static loya-scale imaging. COMPARISON: None. FINDINGS: RIGHT KIDNEY: Normal location of the right kidney, which is normal in size. The right kidney measures 10.4 cm x 6.1 cm x 5.2 cm. There is a normal cortex of the right kidney. The renal cortex measures 1.3 cm. There is no right renal mass or cyst. There are no right renal calculi. There is no right hydronephrosis. DISTAL RIGHT URETER: There is non-visualization of the distal right ureter. There is no demonstrated right ureterovesical junction calculus. There is a visualized right ureteral jet. LEFT KIDNEY: Normal location of the left kidney, which is normal in size. The left kidney measures 11.3 cm x 4.8 cm x 5.3 cm. There is a normal cortex of the left kidney. The renal cortex measures 1.3 cm. There is no left renal mass or cyst. There are no left renal calculi. There is no left hydronephrosis. DISTAL LEFT URETER: There is non-visualization of the distal left ureter. There is no demonstrated left ureterovesical junction calculus. There is a visualized left ureteral jet. BLADDER: The distended urinary bladder has a volume of 299 ml. There is a normal wall thickness of the distended urinary bladder. There is no demonstrated mass within the urinary bladder. There are no demonstrated bladder calculi. US/Kidney and Bladder IMPRESSION: Normal ultrasound of the kidneys and urinary bladder. Electronically Signed: Elbert Givens MD at 11:57 EST , Service support ,
== END 2021-03-01 23:59 | disposition short-term general hospital (02) ==
PROVIDERS: PCP Internal Medicine; Referring Provider Urology; Visit Provider Urology
DX: R10.9 Unspecified abdominal pain (principal)
CPT/HCPCS: 76770

== ENCOUNTER → 2021-08-21 | Outpatient (CLI) | payer MEDICARE, SELFPAY ==
--- NOTE | 2021-08-21 12:44 | BI_ITS ---
MAMMOGRAPHY - BILATERAL SCREENING REASON FOR EXAM: Female, 76 years old. Routine annual screening examination. PERTINENT HISTORY: Non-contributory. Remote right stereotactic breast biopsy. TECHNIQUE: Digital bilateral breast thomas (3D mammographic acquisition) in the CC and MLO projections. 2-D mediolateral oblique (MLO) and craniocaudad (CC) views of both breasts were obtained. CAD: Full Field Digital Mammography with Computer Added Detection was performed. COMPARISON: Comparison is made with prior study dated 08/16/2020 and 02/17/2019. FINDINGS: Breast Composition: There are scattered areas of fibroglandular density. There are no dominant masses or suspicious calcifications. A tissue clip marker is once again seen in the retroareolar region of the right breast. Stable small benign-appearing bilateral axillary lymph nodes. No other significant abnormalities are identified. There has been no significant change since the prior study. BI/SCRN MAMM (CAD)W/THOMAS BILAT IMPRESSION: Stable bilateral screening mammogram. Yearly follow-up mammogram recommended. (A) ASSESSMENT CATEGORY: BIRADS Category 2: Benign. A letter regarding these results will be sent to the patient by the facility within 30 days. Approximately 10% of breast cancers are not detected by mammography. A normal mammogram should not delay biopsy of a clinically suspicious abnormality. [id number] Electronically Signed: Elbert Givens MD at 13:38 EDT ,
--- NOTE | 2021-08-21 12:49 | BD_ITS ---
STUDY: DUAL ENERGY X-RAY ABSORPTIOMETRY / DXA REASON FOR EXAM: Female, 76 years old. [id number]. Patient is postmenopausal. TECHNIQUE: Bone Mineral Density (BMD) measurements of lumbar spine and bilateral hips were obtained. COMPARISON: Comparison is made with prior study dated 08/03/2019. FINDINGS: Lumbar Spine (L1-L4): g/cm2 (0.937) / T-score (-1.0) / Z-score (1.4) Findings are suggestive of normal bone density with a low fracture risk. Left Femur Total: g/cm2 (0.853) / T-score (-0.7) / Z-score (1.1) Left Femoral Neck: g/cm2 (0.681) / T-score (-1.5) / Z-score (0.6) Right Femur Total: g/cm2 (0.897) / T-score (-0.4) / Z-score (1.4) Right Femoral Neck: g/cm2 (0.672) / T-score (-1.6) / Z-score (0.5) The T-Scores on the most recent prior examination were: Lumbar Spine (L1-L4): There has been worsening of bone density since the previous examination. Left Femur Total: which represents a worsening of 5.2%. Right Femur Total: which represents a worsening of 3.8%. BD/Dexa Bone Density Study IMPRESSION: The patient is considered osteopenic as outlined below according to World Michael Organization (WHO) criteria with a moderate fracture risk. There has been worsening of bone density since the previous examination. Reference Information: The T-score is the number of standard deviations above or below the standard which is normal for young adults at their peak bone mineral density. The World Health Organization (WHO) interprets the T-scores as follows: Above -1 Normal bone density Between -1 and -2.5 Osteopenia Equal to / or below -2.5 Osteoporosis As a practical clinical guideline, osteopenia may be graded as follows: Mild -1 through -1.5 Moderate -1.6 through -2.0 Severe -2.1 through -2.4 The Z-score is the number of standard deviations above or below age-matched controls. A Z-score of less than -1.5 would be considered abnormal. References: 1. NIH Osteoporosis and Related Bone Diseases www osteo.org 2. International Society for Clinical Densitometry www iscd.org 3. National Osteoporosis Foundation www nof.org Electronically Signed: Elbert Givens MD at 8:59 EDT ,
== END | disposition home or self-care (01) ==
LOC: OPBD 12:42
PROVIDERS: PCP Internal Medicine; Referring Provider Internal Medicine; Visit Provider Internal Medicine
DX: Z12.31 Encounter for screening mammogram for malignant neoplasm of breast (principal); M85.80 Other specified disorders of bone density and structure, unspecified site; Z78.0 Asymptomatic menopausal state
CPT/HCPCS: 77063; 77067; 77080

== ENCOUNTER 2022-02-18 16:00 | Outpatient (RCR) | payer MEDICARE, SELFPAY ==
--- NOTE | 2022-02-18 09:56 | HP.PTEVAL ---
Patient's Visit Information MONICA RASCON is a 76 year old F referred to Physical Therapy by Dr. Odalys Garcia DO with a diagnosis of R knee OA. Date of Evaluation: 02/12/22 Physical Therapist: Miguel Corrigan DPT - Visit Plan Frequency: 2x /Week Duration: 4 Weeks Plan: Start with [place] and progressive exercises. Pt. may want to join a gym. Progress to gym program if she desires. If not progress to home strengthening. - Subjective Pt. is here today for her initial evaluation with diagnosis of R knee pain, OA. pt. reports having increase knee pain with walking, standing and with stairs. She recently movement to this area to be closer to family. She arrives today with daughter. She is not having much pain today, but has had some intermittent pain in her medial R knee. Pt. reports that she has been overall doing less over the past few years. Pt. reports being able to do most activities, but has become more sedentary in her lifestyle more recently. Pt. likes to read and do puzzles. 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 Overall she is doing less than she had been. - Pain R knee Pain Intensity (Out of 10): 0 Pain Intensity Range: 0, 2 - Objective POSTURE: Pt. has decent posture in stance. Normal ARIC, normal knee valgus/varus positioning. PALPATION: Pt. has no pain with palpation throughout knee. Pt. has no marked edema in either knees. NEURO: normal throughout. Pt. is able to rise on heels and toes without issues. ROM: Pt. has good ROM of B knees, 0-0-128deg of R knee ROM. Pt. has tight HS bilaterally. MMT: RLE: ankle 5/5 throughout; knee: ext 4+/5, flexion 4+/5; hip: flexion 4/5, abd 4/5, ext 4/5. LLE: ankle 5/5 throughout; knee: 4+/5 throughout; hip: flexion 4/5, abd 4/5, ext 4/5. Core strength- poor+. GAIT: Pt. ambulates well without AD. No marked valgus noted. Pt. reports no increase in symptoms with gait. STAIRS: 2 HR with reciprocal pattern, but does have some marked B functional weakness with both ascending and descending. - Special Tests R Knee Beto - Meniscus: Negative R Knee Apley - Meniscus: Negative R Knee Patellar Grind - PFS: Negative - Balance/Special Test Scores Lower Extremity Functional Score: 57 - Goals Goal 1:: LTG: Pt. to be I with HEP for LE strengthening, progressing to I gym exercises. Goal Time Frame: 4-6 Weeks Goal 2:: STG: Pt. to complete all ADls without increase in R knee pain. Goal Time Frame: 2-4 Weeks Goal 3:: LTG: Pt. to have increased R LE strength symmetrical to L side. Goal Time Frame: 4-6 Weeks Goal 4:: LTG: Pt. to increase a walking program to increase general fitness. Goal Time Frame: 4-6 Weeks - Rehabilitation Potential Physical Therapy Diagnosis: Pt. has signs and symptoms consistent with R knee pain, OA. Pt. was doing well today without much pain. She has pretty good ROM of B knees, but does have tight B HS. Pt. has some marked weakness in BLEs and would benefit from PT to address this weakness. Rehabilitation Potential: Excellent - Anticipated Interventions Patient/Client Instruction: Educate patient on: Condition, Plan of Care, Risk Factors, Benefits of Fitness Program For the Purpose of:: To facilitate caregiver knowledge, To improve self management, To prevent re-injury, To improve ability to perform tasks related to life management, To improve tolerance to ADL's Therapeutic Exercise to Include: Strength training, Power training, Flexibilty training, Gait and locomotor training, Dynamic Lumbar Stabilization For the Purpose of:: To decrease pain, To increase ROM, To improve nutrient delivery to tissue, To increase oxygenation perfusion, To improve muscle performance and motor function, To improve gait and locomotor functions, To improve health of tissue Thank you for the opportunity to evaluate your patient. For Medicare and Medicare HMO plans, please review the plan of care and approve it. It will need to be FAXED BACK to us at [phone] for Medicare purposes. For Medicare only, by signing this I certify the plan of care. Please let me know if there are questions or concerns regarding this plan of care. Physician Signature: Date:
== END 2022-02-18 19:00 | disposition home or self-care (01) ==
LOC: PT 16:00
PROVIDERS: PCP Internal Medicine; Referring Provider Internal Medicine; Visit Provider Internal Medicine
DX: M17.11 Unilateral primary osteoarthritis, right knee (principal)
CPT/HCPCS: 97110; 97161

== ENCOUNTER → 2022-08-22 | Outpatient (CLI) | payer MEDICARE, SELFPAY ==
--- NOTE | 2022-08-22 13:08 | BI_ITS ---
MAMMOGRAPHY - BILATERAL SCREENING REASON FOR EXAM: Female, 77 years old. Routine annual screening examination. PERTINENT HISTORY: Non-contributory. Remote right stereotactic breast biopsy. TECHNIQUE: Digital bilateral breast thomas (3D mammographic acquisition) in the CC and MLO projections. 2-D mediolateral oblique (MLO) and craniocaudad (CC) views of both breasts were obtained. CAD: Full Field Digital Mammography with Computer Added Detection was performed. COMPARISON: Comparison is made with prior study dated August 21, 2021 and August 16, 2020. FINDINGS: Breast Composition: There are scattered areas of fibroglandular density. There are no dominant masses or suspicious calcifications. A tissue clip marker is seen in the retroareolar region of the right breast. Stable benign-appearing bilateral axillary lymph nodes. No other significant abnormalities are identified. There has been no significant change since the prior study. BI/SCRN MAMM (CAD)W/THOMAS BILAT IMPRESSION: Stable bilateral screening mammogram. Yearly follow-up mammogram recommended. (A) ASSESSMENT CATEGORY: BIRADS Category 2: Benign. A letter regarding these results will be sent to the patient by the facility within 30 days. Approximately 10% of breast cancers are not detected by mammography. A normal mammogram should not delay biopsy of a clinically suspicious abnormality. [id number] Electronically Signed: Elbert Givens MD at 13:50 EDT ,
== END | disposition home or self-care (01) ==
PROVIDERS: PCP Internal Medicine; Referring Provider Nurse Practitioner Women's Health; Visit Provider Nurse Practitioner Women's Health
DX: Z12.31 Encounter for screening mammogram for malignant neoplasm of breast (principal)
CPT/HCPCS: 77063; 77067

== ENCOUNTER → 2023-04-23 | Outpatient (CLI) | payer MEDICARE, SELFPAY ==
--- NOTE | 2023-04-23 13:54 | ECHOCS_ITS ---
Reason For Study: Abnormal EKG Procedure This was a 2D Doppler, Color Flow transthoracic echocardiogram. Contrast injection was performed. Exam performed in department. Left Ventricle Normal LV size. Left ventricular systolic function is normal. The estimated ejection fraction is 65 %. Stage 1 diastolic dysfunction. No regional wall motion abnormalities noted. Right Ventricle Normal RV size. Normal systolic function. Atria Normal left atrium. Normal right atrium. Mitral Valve Normal mitral valve. Tricuspid Valve Normal tricuspid valve. Mild tricuspid valve insufficiency. Pulmonary artery systolic pressure is 24 mmHg. Aortic Valve Trisinus/trileaflet aortic valve. Mild (1+) eccentric aortic valve insufficiency. Pulmonic Valve Normal pulmonic valve. Great Vessels Normal aortic root. The pulmonary artery is normal size. Inferior vena cava collapse with respiration. Pericardium/Pleural Epicardial fat. Medication Diluted definity 1,5ml given slow IV push to enhance endocardial definition. MMode/2D Measurements & Calculations LVIDd: 4.7 cm IVSd: 0.99 cm Ao root diam: 3.1 cm LVIDs: 3.4 cm LVPWd: 0.77 cm RVDd: 2.6 cm FS: 27.3 % LAV(MOD-bp): 28.8 ml LVAd ap4: 24.0 cm2 SV(MOD-sp4): 46.5 ml LAV(MOD-bp) Indexed: 16.9 ml/m2 LVLd ap4: 6.7 cm LAV(MOD-sp2): 28.0 ml EDV(MOD-sp4): 71.7 ml LAV(MOD-sp4): 24.2 ml EDV(sp4-el): 72.6 ml LVAs ap4: 12.7 cm2 LVLs ap4: 5.7 cm ESV(MOD-sp4): 25.2 ml ESV(sp4-el): 23.9 ml EF(MOD-sp4): 64.9 % EF(sp4-el): 67.0 % SV(sp4-el): 48.7 ml LA A4 area: 10.8 cm2 LA dimension(2D): 3.5 cm RA A4 area: 11.9 cm2 TAPSE: 2.2 cm Time Measurements MV dec time: 0.25 sec Doppler Measurements & Calculations MV E max brandon: 67.1 cm/sec Lat Peak E' Brandon: 7.9 cm/sec Med Peak E' Brandon: 6.9 cm/sec MV A max brandon: 93.4 cm/sec E/E' lat: 8.5 E/E' med: 9.7 MV E/A: 0.72 MV dec slope: 267.5 cm/sec2 Ao V2 max: 102.5 cm/sec LV V1 max: 81.1 cm/sec Ao max P.2 mmHg LV V1 max P.6 mmHg Ao V2 mean: 73.8 cm/sec Ao mean P.4 mmHg Ao V2 VTI: 25.3 cm PA V2 max: 83.0 cm/sec TR max brandon: 231.9 cm/sec TR max P.5 mmHg ECHO/Echo Complete W/ Contrast Interpretation Summary Normal LV size. Left ventricular systolic function is normal. The estimated ejection fraction is 65 %. Stage 1 diastolic dysfunction. Pulmonary artery systolic pressure is 24 mmHg. Structurally normal valves. Contrast injection was performed. Ordering Physician: Odalys Garcia Referring Physician: Odalys Garcia Performed By: Martha Bloom, DAYNA, RVT
--- OUTSIDE RECORDS SUMMARY | 2023-04-23 21:47 | XMS RPT_ITS | CCD ---
Author Name Unknown Address [id number] [place] [address] Organization [facility] Care Team Providers Care Project/Production Manager Imaging Name Role Phone SOSA BERMEO (ASSOCIATE MANAGER AFFILIATE MARKETING) Attending Unavaila ble SOSA BERMEO (ASSOCIATE MANAGER AFFILIATE MARKETING) Attending Unavaila ble SHEETS, ADA C Referring Unavailable SHEETS, ADA C Attending Unavailable SHEETS, ADA C Referring Unavailable SHEETS, ADA C Referring Unavailable SHEETS, ADA C Attending Unavailable Radha Odalys Unavailable Gravius, Helen Unavailable Unavailable Niya Hernandez Unavailable Unavailable Thania, Annalee Unavailable Unavailable CiesaMyra E Unavailable Unavailable Unavailable Travis PHD, Renard De La Paz Unavailable Miguel A Crocker Unavailable Unavailable Radha DO, Odalys Unavailable Travis PHD, Renard De La Paz Unavailable Gravius ADVANCED REGISTERED NURSE, Helen Unavailable Unavailable Unavailable Unavailable David DIRECTOR [facility] Niya Unavailable Unavailable Thania DIRECTOR OF HOME CARE HOSPICE, Annalee Unavailable Unavailable Manchak ADVANCED REGISTERED NURSE, Zuleika Unavailable Unavailable Radha DO, Odalys Unavailable Slarb DIRECTOR OF HOME CARE HOSPICE, Luiza Unavailable Unavailable Dr. Jace Abernathy Unavailable [facility], [facility] Unavailable Meredith STEPHEN, Kayela Unavailable Unavailable Radha DO Odalys Attending Unavailable Radha DO, Odalys Consulting Unavailable Yohan DIRECTOR OF HOME CARE HOSPICE, Bjorn Unavailable Unavailable Allergies Allergy Classification Reported Allergen(s) Allergy Type Date of Onset Reaction(s) Facility (14 sources) Amoxicillin; Translations: [Amoxicillin *PENICILLINS*] Drug Allergy [facility] Work Phone: Medications Current Medications Medication Drug Class(es) Dates Sig (Normalized) Sig (Original) metroNIDAZOLE 7.5 mg/ml topical cream (10 sources) Nitroimidazole Antimicrobial Start: 09-11-2022 metroNIDAZOLE 0.75 % topical cream 1 (one) Application qd for 0 days Quantity: 60 {Applicator} Refills: 2 Ordered: 11-Sep-2022 Odalys Garcia DO, DO, Kathleen Start : 11-Sep-2022 Active Completed/Discontinued Medications Medication Drug Class(es) Dates Sig (Normalized) Sig (Original) amoxicillin 875 mg / clavulanate 125 mg oral tablet (20 sources) Penicillin-class Antibacterial Start: 05-17-2021 End: 06-22-2021 take 1 tablet by mouth twice daily Amoxicillin-Pot Clavulanate 875-125 MG Oral Tablet 1 (one) Tablet bid for 0 days Quantity: 20 {Tablet} Refills: 0 Ordered: 22-Jun-2021 Annalee Monteiro LPN Start : 17-May-2021 End : 22-Jun-2021 Inactive ascorbic acid 60 mg / beta carotene 5000 unt / copper sulfate 40 mg / dl-alpha tocopheryl acetate 30 unt / sodium selenite 0.04 mg / zinc oxide 40 mg oral tablet (20 sources) Vitamin C Multivitamin Angel lt Oral Tablet Active calcium carbonate 500 mg chewable tablet (20 sources) take 2 tablets by mouth once daily Tums 500 MG Oral Tablet Chewable (500 MG) Active Comments: 1,000mg 4x daily Problems Active Problems Problem Classification Problem Date Documented Da te Episodic/Chronic Anxiety disorders (20 sources) Mixed anxiety and depressive disorder; Translations: [Anxiety and depression] 06-07-2020 Chronic Complications of surgical procedures or medical care (20 sources) Skin reaction to suture material; Translations: [Spitting suture, initial encounter] 05-17-2021 Episodic Conditions associated with dizziness or vertigo (20 sources) Vertigo; Translations: [Vertigo] 02-16-2020 Episodic Past or Other Problems Problem Classification Problem Date Documented Date Episodic/Chronic Conditions associated with dizziness or vertigo (20 sources) Conditions associated with dizziness or vertigo Headache; including migraine (20 sources) Headache; including migraine Hepatitis (7 sources) Hepatitis Other ear and sense organ disorders (1 source) Impacted cerumen, bilateral; Translations: [Impacted cerumen, bilateral] Onset: 12-16-2017 Episodic Other lower respiratory disease (1 source) Cough; Translations: [Cough] Onset: 12-11-2017 Episodic Other upper respiratory infections (1 source) Acute upper respiratory infection, unspecified; Translations: [Acute upper respiratory infection, unspecified] Onset: 12-11-2017 Episodic Unclassified (20 sources) MVP (mitral valve prolapse) Unclassified (20 sources) Postmenopausal (Renamed from Postmenopausal status) Unclassified (20 sources) Adult hypothyroidism Unclassified (20 sources) Pregnancies (); Translations: [Pregnancies ()] 08-09-2019 Results Test Name Value Interpretation Reference Range Facil ity Vital Signs Date Time Vital Sign Value Performing Clinician Facility 09-11-2022 08:06-0400 Body height 160.02 cm Odalys Garcia DO Work Phone: [facility] Work Phone: 09-11-2022 08:06-0400 Body mass index (BMI) [Ratio] 26.22 kg/m2 Odalys Garcia DO Work Phone: [facility] Work Phone: 09-11-2022 08:06-0400 Body surface area Derived from formula 1.7 m2 Odalys Garcia DO Work Phone: [facility] Work Phone: 09-11-2022 08:06-0400 Body temperature 96.7 [degF] Odalys Garcia DO Work Phone: [facility] Work Phone: 09-11-2022 08:06-0400 Body weight 67.13 kg Odalys Garcia DO Work Phone: [facility] Work Phone: 09-11-2022 08:06-0400 Diastolic blood pressure 78 mm[Hg] Odalys Garcia DO Work Phone: [facility] Work Phone: Encounters Encounter Date Encounter Type Care Provider Facility Start: 09-11-2022 Review Odalys Fearo n DO Work Phone: [facility] Start: 08-01-2022 End: 08-01-2022 Office outpatient visit 10 minutes Odalys Radha DO Work Phone: [facility] Start: 06-18-2022 Review Odalys Fearo n DO Work Phone: [facility] Start: 01-29-2022 End: 01-30-2022 Office outpatient visit 5 minutes Odalys Radha DO Work Phone: [facility] Start: 01-28-2022 ambulatory Odalys Radha DO [facility] Start: 01-28-2022 End: 01-28-2022 Office outpatient visit 25 minutes Odalys Radha DO Work Phone: [facility] Start: 10-11-2021 End: 10-11-2021 Phone Encounter Odalys Radha DO Work Phone: [facility] Start: 08-01-2021 End: 08-01-2021 Patient encounter procedure Zuleikanasima Gutierrezcelso STEPHEN [facility] Work Phone: Start: 08-01-2021 End: 08-01-2021 Periodic preventive med est patient 65yrs& older Odalys Radha DO Work Phone: [facility] Start: 06-22-2021 End: 06-22-2021 Patient encounter procedure Odalys Radha DO Work Phone: [facility] Start: 06-22-2021 End: 06-22-2021 Phone Encounter Odalys Radha DO Work Phone: [facility] Start: 06-22-2021 Review Odalys Fearo n DO Work Phone: [facility] Start: 05-17-2021 End: 05-17-2021 Office outpatient visit 25 minutes Odalys Radha DO Work Phone: [facility] Start: 02-12-2021 End: 02-13-2021 Periodic preventive med est patient 18-39 yrs Odalys Garcia DO Work Phone: [facility] Start: 02-12-2021 Review Odalys Valenciao n DO Work Phone: [facility] Start: 11-14-2020 End: 11-15-2020 Office outpatient visit 5 minutes Odalys Radha DO Work Phone: [facility] Start: 08-03-2020 End: 08-03-2020 Office outpatient visit 15 minutes Odalys Radha DO Work Phone: [facility] Start: 07-05-2020 End: 07-06-2020 Office outpatient visit 15 minutes Odalys Radha DO Work Phone: [facility] Start: 06-07-2020 End: 06-07-2020 Office outpatient visit 25 minutes Odalys Radha DO Work Phone: [facility] Start: 03-15-2020 End: 03-16-2020 Office outpatient visit 25 minutes Odalys Garcia [facility] Start: 02-16-2020 End: 02-16-2020 Office outpatient visit 15 minutes Odalys Radha [facility] Start: 02-15-2020 End: 02-15-2020 Office outpatient visit 15 minutes Odalys Radha [facility] Start: 11-26-2019 End: 11-29-2019 Office outpatient visit 5 minutes Odalys Radha [facility] Start: 11-26-2019 Review Odalys Radha [facility] Start: 08-26-2019 End: 08-26-2019 Patient encounter procedure Odalys Radha DO Work Phone: [facility] Start: 08-26-2019 End: 08-26-2019 Periodic preventive med est patient 65yrs& older Odalys Radha [facility] Start: 08-09-2019 End: 08-09-2019 Office outpatient visit 25 minutes Odalys Radha [facility] Start: 07-14-2019 End: 07-14-2019 Office outpatient new 30 minutes Odalys Radha [facility] Start: 04-27-2018 End: 04-27-2018 Patient encounter procedure [facility] Start: 03-24-2018 Patient encounter procedure ADA [facility] Start: 03-23-2018 End: 03-23-2018 Patient encounter procedure ADA [facility] Start: 12-16-2017 End: 12-16-2017 Patient encounter procedure SOSA Musa (ASSOCIATE MANAGER AFFILIATE MARKETING) [facility] Start: 12-11-2017 End: 12-11-2017 Patient encounter procedure SOSA Musa (ASSOCIATE MANAGER AFFILIATE MARKETING) [facility] Patient encounter procedure Helen Samantha [facility] Work Phone: Patient encounter procedure Niya Cross DIRECTOR OF HOME CARE HOSPICE [facility] Work Phone: Patient encounter procedure Niya Cross DIRECTOR [facility]ARE [facility] Work Phone: Patient encounter procedure Niya Cross DIRECTOR [facility] Work Phone: Patient encounter procedure Annalee Monteiro DIRECTOR [facility] CARE [facility]OSPICE [facility] Work Phone: Patient encounter procedure Helen Singh [facility] Work Phone: Patient encounter procedure Luiza Barclay DIRECTOR OF HOME CARE HOSPICE [facility] Work Phone: Patient encounter procedure Leloradhaorly Meredith [facility] Work Phone: Patient encounter procedure Italia Chrisford [facility] Work Phone: Procedures Date Procedure Procedure Detail Performing Clinician Start: 08-22-2022 End: 08-22-2022 SCRN MAMM (CAD)W/THOMAS BILAT Procedure Note: See Note; NOTES: [facility] Imaging Services [address] [place] [address] SCRN MAMM (CAD)W/THOMAS BILAT MR#: [id number] Acct: [id number] Name: MONICA ROTH Rep #: [id number] : 1945 F 77 From: Elbert silva MD PCP: Dr. Odalys Radha, DO Status: REG CLI Study: SCRN MAMM (CAD)W/THOMAS BILAT Date of Exam: 08/10 05/02 Exam# [id number] Ordering Dr: Julia Sanchez MOTOR VEHICLE ASSEMBLER-C MAMMOGRAPHY - BILATERAL SCREENING REASON FOR EXAM: Female, 77 years old. Routine annual screening examination. PERTINENT HISTORY: Non-contributory. Remote right stereotactic breast biopsy. TECHNIQUE: Digital bilateral breast thomas (3D mammographic acquisition) in the CC and MLO projections. 2-D mediolateral oblique (MLO) and craniocaudad (CC) views of both breasts were obtained. CAD: Full Field Digital Mammography with Computer Added Detection was performed. COMPARISON: Comparison is made with prior study dated August 21, 2021 and August 16, 2020. FINDINGS: Breast Composition: There are scattered areas of fibroglandular density. There are no dominant masses or suspicious calcifications. A tissue clip marker is seen in the retroareolar region of the right breast. Stable benign-appearing bilateral axillary lymph nodes. No other significant abnormalities are identified. There has been no significant change since the prior study. BI/SCRN MAMM (CAD)W/THOMAS BILAT IMPRESSION: Stable bilateral screening mammogram. Yearly follow-up mammogram recommended. (A) ASSESSMENT CATEGORY: BIRADS Category 2: Benign. A letter regarding these results will be sent to the patient by the facility within 30 days. Approximately 10% of breast cancers are not detected by mammography. A normal mammogram should not delay biopsy of a clinically suspicious abnormality. [id number] Electronically Signed: Elbert Givens MD at 13:50 EDT , CC: REX Sanchez; Dr. Odalys Garcia DO Ssn/Ssbn Weapons Equipment Operator: Signed Odalys Garcia DO Work Phone: Start: 02-18-2022 End: 02-18-2022 Inital Evaluation (1) - PT Procedure Note: See Note; NOTES: [facility] [address] [place] [address] / REHABILITATION SERVICES INITIAL EVALUATION MR#: [id number] Acct: [id number] Name: MONICA ROTH Rep #: [id number] : 1945 76 From: Miguel GOMEZT Referring Dr.: Dr. Odalys Garcia DO Status: REG RCR Insurance: [facility] SELF PAY INSURANCE Patient's Visit Information MONICA ROTH is a 76 year old F referred to Physical Therapy by Dr. Odalys Garcia DO with a diagnosis of R knee OA. Date of Evaluation: 02/12/22 Physical Therapist: JASON AraizaT - Visit Plan Frequency: 2x /Week Duration: 4 Weeks Plan: Start with [place] and progressive exercises. Pt. may want to join a gym. Progress to gym program if she desires. If not progress to home strengthening. - Subjective Pt. is here today for her initial evaluation with diagnosis of R knee pain, OA. pt. reports having increase knee pain with walking, standing and with stairs. She recently movement to this area to be closer to family. She arrives today with daughter. She is not having much pain today, but has had some intermittent pain in her medial R knee. Pt. reports that she has been overall doing less over the past few years. Pt. reports being able to do most activities, but has become more sedentary in her lifestyle more recently. Pt. likes to read and do puzzles. 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 Overall she is doing less than she had been. - Pain R knee Pain Intensity (Out of 10): 0 Pain Intensity Range: 0, 2 - Objective POSTURE: Pt. has decent posture in stance. Normal ARIC, normal knee valgus/varus positioning. PALPATION: Pt. has no pain with palpation throughout knee. Pt. has no marked edema in either knees. NEURO: normal throughout. Pt. is able to rise on heels and toes without issues. ROM: Pt. has good ROM of B knees, 0-0-128deg of R knee ROM. Pt. has tight HS bilaterally. MMT: RLE: ankle 5/5 throughout; knee: ext 4+/5, flexion 4+/5; hip: flexion 4/5, abd 4/5, ext 4/5. LLE: ankle 5/5 throughout; knee: 4+/5 throughout; hip: flexion 4/5, abd 4/5, ext 4/5. Core strength- poor+. GAIT: Pt. ambulates well without AD. No marked valgus noted. Pt. reports no increase in symptoms with gait. STAIRS: 2 HR with reciprocal pattern, but does have some marked B functional weakness with both ascending and descending. - Special Tests R Knee Beto - Meniscus: Negative R Knee Apley - Meniscus: Negative R Knee Patellar Grind - PFS: Negative - Balance/Special Test Scores Lower Extremity Functional Score: 57 - Goals Goal 1:: LTG: Pt. to be I with HEP for LE strengthening, progressing to I gym exercises. Goal Time Frame: 4-6 Weeks Goal 2:: STG: Pt. to complete all ADls without increase in R knee pain. Goal Time Frame: 2-4 Weeks Goal 3:: LTG: Pt. to have increased R LE strength symmetrical to L side. Goal Time Frame: 4-6 Weeks Goal 4:: LTG: Pt. to increase a walking program to increase general fitness. Goal Time Frame: 4-6 Weeks - Rehabilitation Potential Physical Therapy Diagnosis: Pt. has signs and symptoms consistent with R knee pain, OA. Pt. was doing well today without much pain. She has pretty good ROM of B knees, but does have tight B HS. Pt. has some marked weakness in BLEs and would benefit from PT to address this weakness. Rehabilitation Potential: Excellent - Anticipated Interventions Patient/Client Instruction: Educate patient on: Condition, Plan of Care, Risk Factors, Benefits of Fitness Program For the Purpose of:: To facilitate caregiver knowledge, To improve self management, To prevent re- injury, To improve ability to perform tasks related to life management, To improve tolerance to ADL's Therapeutic Exercise to Include: Strength training, Power training, Flexibilty training, Gait and locomotor training, Dynamic Lumbar Stabilization For the Purpose of:: To decrease pain, To increase ROM, To improve nutrient delivery to tissue, To increase oxygenation perfusion, To improve muscle performance and motor function, To improve gait and locomotor functions, To improve health of tissue Thank you for the opportunity to evaluate your patient. For Medicare and Medicare HMO plans, please review the plan of care and approve it. It will need to be FAXED BACK to us at [phone] for Medicare purposes. For Medicare only, by signing this I certify the plan of care. Please let me know if there are questions or concerns regarding this plan of care. Physician Signature: _Date: <Electronically signed by Miguel Corrigan DPT> 02/18/22 0956 CC: Dr. Odalys Garcia DO CLS Signed Odalys Garcia DO Work Phone: Start: 01-29-2022 End: 01-29-2022 Knee 4 or More Views Procedure Note: See Note; NOTES: [facility] [address] [place] [address] Knee 4 or More Views MR#: [id number] Acct: [id number] Name: MONICA ROTH Rep #: [id number] : 1945 F 76 From: Frederick Max MD PCP: Dr. Odalys Garcia DO Status: DEP AMB Study: Knee 4 or More Views Date of Exam: 01/29/22 Exam# [id number] Ordering Dr: Odalys Garcia DO STUDY: X-RAY - RIGHT KNEE REASON FOR EXAM: Female, 76 years old. Pain. TECHNIQUE: 4 view(s) of the knee. COMPARISON: None. FINDINGS: Osteopenia. Normal visualized distal femur. Normal visualized proximal tibia and fibula. Normal proximal tibiofibular articulation. Normal medial femorotibial compartment. Mild lateral compartmental arthrosis. Slight lateral tilt of the patella with mild arthrosis of the patellofemoral compartment. Small joint effusion. RAD/Knee 4 or More Views IMPRESSION: Osteopenia with lateral and patellofemoral compartmental arthrosis and small joint effusion. No acute abnormality, chondrocalcinosis or erosive changes. Electronically Signed: Frederick Max, at 13:32 EST , CC: Dr. Odalys Garcia DO Ssn/Ssbn Weapons Equipment Operator: Signed Odalys Garcia DO Work Phone: Start: 08-21-2021 End: 08-22-2021 Dexa Bone Density Study Procedure Note: See Note; NOTES: [facility] Imaging Services [address] [place] [id number] Dexa Bone Density Study MR#: [id number] Acct: [id number] Name: MONICA ROTH Rep #: [id number] : 1945 F 76 From: Elbert silva MD PCP: Dr. Odalys Garcia DO Status: [facility] Study: Dexa Bone Density Study Date of Exam: 08/21/21 Exam# [id number] Ordering Dr: Odalys Garcia DO STUDY: DUAL ENERGY X-RAY ABSORPTIOMETRY / DXA REASON FOR EXAM: Female, 76 years old. [id number]. Patient is postmenopausal. TECHNIQUE: Bone Mineral Density (BMD) measurements of lumbar spine and bilateral hips were obtained. COMPARISON: Comparison is made with prior study dated 08/03/2019. FINDINGS: Lumbar Spine (L1-L4): g/cm2 (0.937) / T-score (-1.0) / Z-score (1.4) Findings are suggestive of normal bone density with a low fracture risk. Left Femur Total: g/cm2 (0.853) / T-score (-0.7) / Z-score (1.1) Left Femoral Neck: g/cm2 (0.681) / T-score (-1.5) / Z-score (0.6) Right Femur Total: g/cm2 (0.897) / T-score (-0.4) / Z-score (1.4) Right Femoral Neck: g/cm2 (0.672) / T-score (-1.6) / Z-score (0.5) The T-Scores on the most recent prior examination were: Lumbar Spine (L1-L4): There has been worsening of bone density since the previous examination. Left Femur Total: which represents a worsening of 5.2%. Right Femur Total: which represents a worsening of 3.8%. BD/Dexa Bone Density Study IMPRESSION: The patient is considered osteopenic as outlined below according to World Michael Organization (WHO) criteria with a moderate fracture risk. There has been worsening of bone density since the previous examination. Reference Information: The T-score is the number of standard deviations above or below the standard which is normal for young adults at their peak bone mineral density. The World Health Organization (WHO) interprets the T-scores as follows: Above -1 Normal bone density Between -1 and -2.5 Osteopenia Equal to / or below -2.5 Osteoporosis As a practical clinical guideline, osteopenia may be graded as follows: Mild -1 through -1.5 Moderate -1.6 through -2.0 Severe -2.1 through -2.4 The Z-score is the number of standard deviations above or below age-matched controls. A Z-score of less than -1.5 would be considered abnormal. References: 1. NIH Osteoporosis and Related Bone Diseases www osteo.org 2. International Society for Clinical Densitometry www iscd.org 3. National Osteoporosis Foundation www nof.org Electronically Signed: Elbert Givens MD at 8:59 EDT , CC: Dr. Odalys Garcia DO Ssn/Ssbn Weapons Equipment Operator: Signed Odalys Garcia DO Work Phone: Start: 08-21-2021 End: 08-21-2021 SCRN MAMM (CAD)W/THOMAS BILAT Procedure Note: See Note; NOTES: [facility] Imaging Services [address] [place] [address] SCRN MAMM (CAD)W/THOMAS BILAT MR#: [id number] Acct: [id number] Name: MONICA ROTH Rep #: [id number] : 1945 F 76 From: Elbert silva MD PCP: Dr. Odalys Garcia, Status: REG CLI Study: SCRN MAMM (CAD)W/THOMAS BILAT Date of Exam: 08/10 04/03 Exam# [id number] Ordering Dr: Odalys Garcia DO MAMMOGRAPHY - BILATERAL SCREENING REASON FOR EXAM: Female, 76 years old. Routine annual screening examination. PERTINENT HISTORY: Non-contributory. Remote right stereotactic breast biopsy. TECHNIQUE: Digital bilateral breast thomas (3D mammographic acquisition) in the CC and MLO projections. 2-D mediolateral oblique (MLO) and craniocaudad (CC) views of both breasts were obtained. CAD: Full Field Digital Mammography with Computer Added Detection was performed. COMPARISON: Comparison is made with prior study dated 08/16/2020 and 02/17/2019. FINDINGS: Breast Composition: There are scattered areas of fibroglandular density. There are no dominant masses or suspicious calcifications. A tissue clip marker is once again seen in the retroareolar region of the right breast. Stable small benign-appearing bilateral axillary lymph nodes. No other significant abnormalities are identified. There has been no significant change since the prior study. BI/SCRN MAMM (CAD)W/THOMAS BILAT IMPRESSION: Stable bilateral screening mammogram. Yearly follow-up mammogram recommended. (A) ASSESSMENT CATEGORY: BIRADS Category 2: Benign. A letter regarding these results will be sent to the patient by the facility within 30 days. Approximately 10% of breast cancers are not detected by mammography. A normal mammogram should not delay biopsy of a clinically suspicious abnormality. [id number] Electronically Signed: Elbert Givens MD at 13:38 EDT Reading Location ID and State: [address] [place] [address] , Service support , CC: Dr. Odalys Garcia DO Ssn/Ssbn Weapons Equipment Operator: Signed Odalys Garcia DO Work Phone: Start: 08-02-2021 End: 08-02-2021 Urgent Care Visit Report Comments: See Note; NOTES: [facility] [address] [place] [id number] OFFICE VISIT Date of Service: 08/02/21 MR#: [id number] Acct: [id number] Name: MONICA ROTH Rep #: [id number] : 1945 Provider: SAMANTHA Pulido Age/Sex: 76/F Location: [facility] Status: Signed Intake Vital Signs 08/02/21 13:33 BP 134/66 H Blood Pressure Location Lt brachial Position Sitting Respiration 15 Pulse 80 Pulse Source Monitor Temp 9.6 F L Temp Source Temporal Pulse Oximetry (%) 97 Oxygen Delivery Method room air Intake Visit Reasons: REACTION TO PNEUMONIA SHOT Chief Complaint: CP Allergies No Known Allergies Allergy (Verified 08/02/21 13:37) Medications etodolac 400 mg tablet 400 mg PO PRN PRN Leg Cramps 03/08/20 [History Confirmed 08/02/21] meclizine 25 mg tablet 25 mg PO PRN PRN Dizziness 03/08/20 [History Confirmed 08/02/21] omega-3 fatty acids-fish oil 340 mg-1,000 mg capsule 1 ea PO DAILY 03/08/20 [History Confirmed 08/02/21] potassium 99 mg tablet 99 mg PO DAILY 03/08/20 [History Confirmed 08/02/21] trazodone 50 mg tablet 50 mg PO QHS 03/08/20 [History Confirmed 08/02/21] hydrochlorothiazide 25 mg tablet 25 mg PO DAILY #30 tabs 03/09/20 [Rx Confirmed 08/02/21] levothyroxine 25 mcg tablet 50 mcg PO DAILY ##0 03/09/20 [Rx Confirmed 08/02/21] simvastatin 10 mg tablet 10 mg PO QHS ##0 03/09/20 [Rx Confirmed 08/02/21] calcium carbonate 200 mg calcium (500 mg) chewable tablet (Tums) 200 mg PO .PRN 01/09/21 [History Confirmed 08/02/21] cranberry 400 mg capsule 400 mg PO DAILY 01/09/21 [History Confirmed 08/02/21] melatonin 3 mg capsule 3 mg PO HS PRN 01/09/21 [History Confirmed 08/02/21] multivitamin (Daily Multi-Vitamin) 1 tab PO DAILY 01/09/21 [History Confirmed 08/02/21] methylprednisolone 4 mg tablets in a dose pack (Medrol (Dennis)) 4 mg PO PER PKG DIR 5 days #21 tabs 08/02/21 [Rx Confirmed 08/02/21] PFSH Medical History Encounter for screening for COVID-19 Encounter for screening for COVID-19 Social History Smoking Status: Never smoker HPI HPI Chief Complaint: CP Details: MONICA ROTH, is a 76 F who presents to the office today for reaction to a pneumonia shot she had yesterday. Patient was given pneumonia shot yesterday by her PCP and today has a red swollen arm. She states that the area is painful when moving her arm. She denies numbness, tingling or loss of range of motion. No shortness of breath, difficulty breathing or chest pain. No lip/tongue/throat swelling. No other associated symptoms or alleviating/aggravating factors. ROS Const Constitutional: No other (6 system ROS completed with pertinent findings in the HPI otherwise normal.) Exam Const General: cooperative and healthy appearing [facility] Head: normocephalic and atraumatic Ears: hearing grossly normal bilaterally Nose: external nose normal Face and sinus: normal facial exam and face symmetric Mouth: oral mucosae normal Throat: posterior oropharynx normal Resp Effort Inspection: normal respiratory effort Auscultation: Bilateral: Clear to Auscultation Cardio Rate: regular rate Rhythm: regular rhythm Skin General: no rashes or lesions noted Neuro General: patient alert and CN's II-XI intact bilaterally Extrem Other: Left upper arm soft tissue swelling and erythema around the biceps and lower deltoid with warmth to palpation. No extending erythema, streaking or lymphadenopathy. Psych Appearance: grossly normal Mental Status: mental status grossly normal Coding Level of Care Code Off vis,est,level 3 Diagnoses Vaccine reaction T50.Z95A Assessment and Plan Assessment and Plan (1) Vaccine reaction: Status: Acute Medications: New methylprednisolone (Medrol (Dennis)) 4 mg PO PER PKG DIR 5 days 21 tabs 0RF Plan Medrol Dosepak as prescribed today. Patient advised to follow-up with her PCP in 2 to 3 days if no better or sooner if worse. Patient advised of potential red flags and when appropriate to report to the ED. Patient verbalized understanding and agreement with all the above. 08/02/21 9764 <Electronically signed by Pranay SINGH> Date Pranay SINGH Cosigner Signature: Date (if applicable) CC: Odalys Radha DO Work Phone: Start: 03-01-2021 End: 03-01-2021 Kidney and Bladder Comments: See Note; NOTES: [facility] Imaging Services [address] [place] [address] Kidney and Bladder MR#: [id number] Acct: [id number] Name: MONICA ROTH Rep #: [id number] : 1945 F 75 From: Elbert silva MD PCP: Dr. Odalys Garcia, DO Status: REG CLI Study: Kidney and Bladder Date of Exam: 03/01/21 Exam# [id number] Ordering Dr: Nina Guillen MD STUDY: RENAL ULTRASOUND - COMPLETE REASON FOR EXAM: Female, 75 years old. Right flank pain. TECHNIQUE: Ultrasound evaluation of the kidneys was performed with real-time and static loya-scale imaging. COMPARISON: None. FINDINGS: RIGHT KIDNEY: Normal location of the right kidney, which is normal in size. The right kidney measures 10.4 cm x 6.1 cm x 5.2 cm. There is a normal cortex of the right kidney. The renal cortex measures 1.3 cm. There is no right renal mass or cyst. There are no right renal calculi. There is no right hydronephrosis. DISTAL RIGHT URETER: There is non-visualization of the distal right ureter. There is no demonstrated right ureterovesical junction calculus. There is a visualized right ureteral jet. LEFT KIDNEY: Normal location of the left kidney, which is normal in size. The left kidney measures 11.3 cm x 4.8 cm x 5.3 cm. There is a normal cortex of the left kidney. The renal cortex measures 1.3 cm. There is no left renal mass or cyst. There are no left renal calculi. There is no left hydronephrosis. DISTAL LEFT URETER: There is non-visualization of the distal left ureter. There is no demonstrated left ureterovesical junction calculus. There is a visualized left ureteral jet. BLADDER: The distended urinary bladder has a volume of 299 ml. There is a normal wall thickness of the distended urinary bladder. There is no demonstrated mass within the urinary bladder. There are no demonstrated bladder calculi. US/Kidney and Bladder IMPRESSION: Normal ultrasound of the kidneys and urinary bladder. Electronically Signed: Elbert Givens MD at 11:57 EST , Service support , CC: Dr. Nina Guillen MD; Dr. Odalys Garcia DO [employer] Weapons Equipment Operator: Signed Odalys Garcia DO Work Phone: Start: 02-12-2021 End: 02-12-2021 Urgent Care Visit Report Comments: See Note; NOTES: [facility] [address] [place] [address] OFFICE VISIT Date of Service: 02/12/21 MR#: [id number] Acct: [id number] Name: MONICA ROTH Rep #: [id number] : 1945 Provider: SAMANTHA payton Age/Sex: 75/F Location: [facility] Status: Signed Intake Vital Signs 02/12/21 13:02 BP 152/78 H Blood Pressure Location Lt brachial Position Sitting Respiration 16 Pulse 76 Pulse Source Monitor Temp 96.3 F L Temp Source Temporal Pulse Oximetry (%) 97 Oxygen Delivery Method room air Intake Visit Reasons: COVID Chief Complaint: CP Allergies No Known Allergies Allergy (Verified 01/09/21 10:16) [facility]LY [facility] Medical History (Updated 02/12/21 @ 13:08 by Benjamin SINGH, SAMANTHA) Encounter for screening for COVID-19 Encounter for screening for COVID-19 Social History Smoking Status: Never smoker HPI HPI Chief Complaint: CP Details: MONICA ROTH, is a 75 F who presents to the office today for covid19 sceenning; asymptomatic but will be caring for family members therefore wanting to ensure. COVID19 vaccine and booster utd; influenza vaccine utd. Nonsmoker. No COVID19 exposures. No other c/o at this time. ROS Const Constitutional: No other (as above) Exam Const General: cooperative, healthy appearing, comfortable and no acute distress Nutritional Appearance: average body habitus and well nourished Orientation: alert, awake and oriented x3 HENDE Head: normal to inspection Ears: hearing grossly normal bilaterally, external ears normal, TM's normal bilaterally and EAC's normal Nose: external nose normal, nares normal, septum normal and no nasal discharge Face and sinus: normal facial exam, sinuses nontender and face symmetric Mouth: oral mucosae normal, lip normal, tongue normal and moist mucous membranes Throat: posterior oropharynx normal, tonsils normal, uvula midline and no postnasal drainage Eyes General: appearance normal, both eyes and all related structures Neck Neck: normal visual inspection, full ROM, no lymphadenopathy, no meningeal signs and supple Neck mass: No Thyroid: thyroid normal Lymphatic: no lymphadenopathy noted Chest Chest palpation inspection: normal inspection of the chest Resp Effort Inspection: normal respiratory effort, able to speak in complete sentences, symmetric chest movement and no cough Auscultation: Bilateral: Clear to Auscultation Cardio Palpation: normal PMI Rate: regular rate Rhythm: regular rhythm Heart Sounds: S1 normal, S2 normal, no gallops, no murmurs and no rubs Pulses: radial pulses present GI Inspection: normal to inspection Palpation: soft and no hepatosplenomegaly Skin General: no rashes or lesions noted Neuro General: patient alert, patient awake, patient oriented x3 and gait normal Cognition: normal cognition Speech: speech normal Gait: normal gait Motor: muscle tone normal throughout Sensory Exam: no sensory deficits noted Psych Appearance: grossly normal Mental Status: mental status grossly normal Mood: congruent mood Affect: normal affect Speech and Movement: speech and movement normal Attitude: cooperative Thought Process: normal Thought Content: normal Judgment: judgment good Results POC SARS AG POC SARS AG Negative Last Edit by Chery Weems on 02/12/21 13:13 Coding Level of Care Code Off vis,est,level 2 Diagnoses Encounter for screening for COVID-19 Z11.52 Assessment and Plan Assessment and Plan (1) Encounter for screening for COVID-19: Status: Acute Plan - Benjamin SINGH, PA: POC COVID-19 screening in office today. Copy of results offered in office today. Supportive measures as instructed today. Follow-up with PCP in 5 to 7 days should symptoms not improve, ED sooner should symptoms worsen or any other concerns develop. Patient states acknowledging understanding all the above. This note was generated with Dragon dictation software. It may contain incorrect words, spelling, and punctuation that were not noted in checking the note before signing. Plan Details Other Orders: Orders: POC Rapid SARS Antigen Today 02/12/21 1330 <Electronically signed by Benjamin SINGH> Date Benjamin SINGH Cosigner Signature: Date (if applicable) CC: Odalys Garcia DO Work Phone: Start: 01-09-2021 End: 01-09-2021 Urgent Care Visit Report Comments: See Note; NOTES: [facility] [address] [place] [address] [address] [place] [address] OFFICE VISIT Date of Service: 01/09/21 MR#: [id number] Acct: [id number] Name: MONICA ROTH Rep #: [id number] : 1945 Provider: SAMANTHA payton Age/Sex: 75/F Location: [facility] Status: Signed Intake Vital Signs 01/09/21 10:15 Height 5 ft 3 in Weight: 153 lb BMI 27.1 BP 142/72 H Blood Pressure Location Lt brachial Position Sitting Respiration 12 Pulse 86 Pulse Source Palpation Temp 98.2 F Temp Source Temporal Pulse Oximetry (%) 98 Oxygen Delivery Method room air Intake Visit Reasons: EXPOSED/COVID Chief Complaint: CP Allergies No Known Allergies Allergy (Verified 01/09/21 10:16) Medications etodolac 400 mg PO PRN PRN 03/08/20 [History Confirmed 01/09/21] meclizine 25 mg PO PRN PRN 03/08/20 [History Confirmed 01/09/21] omega-3 fatty acids-fish oil 1 ea PO DAILY 03/08/20 [History Confirmed 01/09/21] potassium 99 mg PO DAILY 03/08/20 [History Confirmed 01/09/21] trazodone 50 mg PO QHS 03/08/20 [History Confirmed 01/09/21] hydrochlorothiazide 25 mg PO DAILY #30 tab 03/09/20 [Rx Confirmed 01/09/21] levothyroxine 50 mcg PO DAILY #0 03/09/20 [Rx Confirmed 01/09/21] simvastatin 10 mg PO QHS #0 03/09/20 [Rx Confirmed 01/09/21] calcium carbonate 200 mg calcium (500 mg) chewable tablet 200 mg PO .PRN tab 01/09/21 [History Confirmed 01/09/21] cranberry 400 mg capsule 400 mg PO DAILY 01/09/21 [History Confirmed 01/09/21] melatonin 3 mg capsule 3 mg PO HS PRN 01/09/21 [History Confirmed 01/09/21] multivitamin 1 tab PO DAILY 01/09/21 [History Confirmed 01/09/21] [facility] Medical History (Updated 01/09/21 @ 10:15 by Benjamin SINGH, PA) Encounter for screening for COVID-19 Social History Smoking Status: Never smoker HPI HPI Chief Complaint: CP Details: MONICA ROTH, is a 75 F who presents to the office today for covid19 screening s/p exposure 2 days ago for 90 minutes; asymptomatic. Previously received COVID19 vaccine and booster. Nonsmoker. No c/o otherwise. ROS Const Constitutional: No other (as above) Exam Const General: cooperative, healthy appearing, comfortable and no acute distress Nutritional Appearance: average body habitus and well nourished Orientation: alert, awake and oriented x3 HENMT Head: normal to inspection Ears: hearing grossly normal bilaterally, external ears normal, TM's normal bilaterally and EAC's normal Nose: external nose normal, nares normal, septum normal and no nasal discharge Face and sinus: normal facial exam, sinuses nontender and face symmetric Mouth: oral mucosae normal, lip normal, tongue normal and moist mucous membranes Throat: posterior oropharynx normal, tonsils normal, uvula midline and no postnasal drainage Eyes General: appearance normal, both eyes and all related structures Neck Neck: normal visual inspection, full ROM, no lymphadenopathy, no meningeal signs and supple Neck mass: No Thyroid: thyroid normal Lymphatic: no lymphadenopathy noted Chest Chest palpation inspection: normal inspection of the chest Resp Effort Inspection: normal respiratory effort, able to speak in complete sentences, symmetric chest movement and no cough Auscultation: Bilateral: Clear to Auscultation Cardio Palpation: normal PMI Rate: regular rate Rhythm: regular rhythm Heart Sounds: S1 normal, S2 normal, no gallops, no murmurs and no rubs Pulses: radial pulses present GI Inspection: normal to inspection Palpation: soft and nontender Skin General: no rashes or lesions noted Neuro General: patient alert, patient awake, patient oriented x3 and gait normal Cognition: normal cognition Speech: speech normal Gait: normal gait Motor: muscle tone normal throughout Sensory Exam: no sensory deficits noted Psych Appearance: grossly normal Mental Status: mental status grossly normal Mood: congruent mood Affect: normal affect Speech and Movement: speech and movement normal Attitude: cooperative Thought Process: normal Thought Content: normal Judgment: judgment good Results POC BENNY CoV-2 PCR POC BENNY CoV-2 PCR Not Detected Last Edit by SAMANTHA Louis on 01/09/21 10:34 Influenza A B: Not Detected Coding Level of Care Code Off vis,new,level 2 Diagnoses Encounter for screening for COVID-19 Z11.52 Assessment and Plan Assessment and Plan (1) Encounter for screening for COVID-19: Status: Acute Orders: Orders: POC Rapid BENNY Cov-2 PCR Today Plan: GREG COVID-19 and Influenza A/B results negative in office today. Copy of results offered to patient in office today. Supportive measures as reviewed with patient in office today. Follow up w/ pcp in 5-7 days should symptoms not improve, ED sooner should symptoms worsen or any other concerns dvelop. Patient states acknowledging understanding all the above. 01/09/21 1035 <Electronically signed by Benjamin SINGH PA> Date Benjamin SINGH Cosigner Signature: Date (if applicable) CC: Odalys Garcia DO Work Phone: Start: 08-16-2020 End: 08-17-2020 SCRN MAMM (CAD)W/THOMAS BILAT Comments: See Note; NOTES: [facility] Imaging Services [address] [place] [address] SCRN MAMM (CAD)W/THOMAS BILAT MR#: [id number] Acct: [id number] Name: MONICA ROTH Rep #: [id number] : 1945 F 75 From: Elbert silva MD PCP: Dr. Odalys Garcia, DO Status: REG CLI Study: SCRN MAMM (CAD)W/THOMAS BILAT Date of Exam: 08/30 Exam# [id number] Ordering Dr: Flores Pillai DO MAMMOGRAPHY - BILATERAL SCREENING REASON FOR EXAM: Female, 75 years old. Routine annual screening examination. PERTINENT HISTORY: Non-contributory. Remote right stereotactic breast biopsy. TECHNIQUE: Digital bilateral breast thomas (3D mammographic acquisition) in the CC and MLO projections. 2-D mediolateral oblique (MLO) and craniocaudad (CC) views of both breasts were obtained. CAD: Full Field Digital Mammography with Computer Added Detection was performed. COMPARISON: Comparison is made with prior study dated 02/17/2019. FINDINGS: Breast Composition: There are scattered areas of fibroglandular density. There are no dominant masses or suspicious calcifications. Stable small benign-appearing bilateral axillary lymph nodes. No other significant abnormalities are identified. There has been no significant change since the prior study. BI/SCRN MAMM (CAD)W/THOMAS BILAT IMPRESSION: Stable bilateral screening mammogram. Yearly follow-up mammogram recommended. (A) ASSESSMENT CATEGORY: BIRADS Category 2: Benign. A letter regarding these results will be sent to the patient by the facility within 30 days. Approximately 10% of breast cancers are not detected by mammography. A normal mammogram should not delay biopsy of a clinically suspicious abnormality. [id number] Electronically Signed: Elbert Givens MD at 14:35 EDT , Service support , CC: Dr. Flores Pillai DO; Dr. Odalys Garcia DO [employer] Weapons Equipment Operator: Signed Odalys Garcia DO Work Phone: Start: 03-23-2020 End: 03-23-2020 Brain/Head without Contrast Comments: See Note; NOTES: [facility] Imaging Services [address] [place] [address] Brain/Head without Contrast MR#: [id number] Acct: [id number] Name: MONICA ROTH Rep #: [id number] : 1945 F 74 From: Justin Hardin PCP: Dr. Odalys Garcia DO Status: REG CLI Study: Brain/Head without Contrast Date of Exam: 03/13 03/02 Exam# [id number] Ordering Dr: Odalys Garcia DO STUDY: CT BRAIN WITHOUT CONTRAST REASON FOR EXAM: Female, 74 years old. MEMORY LOSS, CONFUSION, HX VERTIGO RADIATION DOSAGE (If Supplied By Facility): CTDIvol = ( 44.99 ) mGy, DLP = ( 812.98 ) mGycm TECHNIQUE: Transaxial CT imaging of the brain was performed without administration of intravenous contrast material. Individualized dose optimization techniques were used for this CT. COMPARISON: No relevant priors. FINDINGS: Normal soft tissue structures. Normal calvarium. Normal size ventricles and extra-axial spaces for the patient''s age. There are areas of decreased attenuation within the white matter tracts of the supratentorial brain, consistent with microvascular disease changes. Normal basal ganglia and thalami. Normal brainstem. Normal cerebellum. There is no intracranial hemorrhage. There are no findings of an acute ischemic infarction. Normal visualized paranasal sinuses. CT/Brain/Head without Contrast IMPRESSION: Chronic involutional changes of the brain. Electronically Signed: Justin Gamboa MD at 14:08 EST Tel , Service support , CC: Dr. Odalys Garcia DO [employer] Weapons Equipment Operator: Signed Odalys Garcia Work Phone: Start: 03-08-2020 End: 03-08-2020 CTA Chest W/WO Contrast Comments: See Note; NOTES: [facility] Imaging Services [address] [place] [address] CTA Chest W/WO Contrast MR#: [id number] Acct: [id number] Name: MONICA ROTH Rep #: [id number] : 1945 F 74 From: Elbert silva MD PCP: Dr. Odalys Garcia DO Status: REG ER Study: CTA Chest W/WO Contrast Date of Exam: 03/08/20 Exam# [id number] Ordering Dr: Kyle Brooke DO STUDY: CTA CHEST REASON FOR EXAM: Female, 74 years old. R SIDED CP/UPPER ABD PAIN. ELEVATED D-DIMER. RADIATION DOSAGE (If Supplied By Facility): CTDIvol = ( 8.04 ) mGy, DLP = ( 343.69 ) mGycm TECHNIQUE: The examination was performed with the intravenous administration of IV 100mL Isovue-300. Post-processing of the angiographic images was performed, with multiplanar reformation and 3D reconstruction. Individualized dose optimization techniques were used for this CT. COMPARISON: Comparison is made with prior chest radiograph done earlier today. FINDINGS: Small benign appearing bilateral axillary lymph nodes. Normal enhancement of the main pulmonary artery and right and left pulmonary arteries. Normal enhancement of the bilateral peripheral pulmonary arteries. There is no demonstrated pulmonary embolism. Normal thoracic aorta and visualized great vessels. There is no demonstrated aortic dissection. Normal heart and pericardium. Normal mediastinum. Normal hilar regions. Normal visualized trachea and bronchi. The lungs are well expanded. Normal pulmonary parenchyma. Normal pleura. Normal chest wall structures. There are degenerative changes of thoracic spine. Normal visualized upper abdomen. CT/CTA Chest W/WO Contrast IMPRESSION: Normal CTA chest examination, without a demonstrated pulmonary embolism or arterial dissection. Electronically Signed: Elbert Givens MD at 12:12 EST , Service support , CC: Dr. Kyle Brooke DO; Dr. Odalys Garcia DO [employer] Weapons Equipment Operator: Signed Odalys Garcia Start: 03-08-2020 End: 03-08-2020 Chest 1 View (Portable) Comments: See Note; NOTES: [facility] Imaging Services [address] [place] [address] Chest 1 View (Portable) MR#: [id number] Acct: [id number] Name: MONICA ROTH Rep #: [id number] : 1945 F 74 From: Elbert silva MD PCP: Dr. Odalys Garcia DO Status: REG ER Study: Chest 1 View (Portable) Date of Exam: 03/08/20 Exam# [id number] Ordering Dr: Kyle Brooke DO STUDY: X-RAY CHEST REASON FOR EXAM: Female, 74 years old. PT C/O RIGHT SIDED CHEST PAIN/UPPER ABD, LEFT HAND WEAKNESS TECHNIQUE: Single AP portable view of the chest. COMPARISON: None. FINDINGS: EKG electrodes are seen. The lungs are clear and expanded. There is no demonstrated pleural abnormality. Normal size heart. Normal mediastinum and dameon. Normal visualized pulmonary arteries. Normal visualized aortic arch and descending thoracic aorta. Normal visualized thoracic spine. Normal visualized ribs, clavicles, and shoulders. There is no demonstrated abnormality of the visualized soft tissue structures of the upper abdomen. RAD/Chest 1 View (Portable) IMPRESSION: Normal x-ray examination of the chest. Electronically Signed: Elbert Givens MD at 11:48 EST , Service support , CC: Dr. Kyle Brooke DO; Dr. Odalys Garcia DO [employer] Weapons Equipment Operator: Signed Odalys Garcia Start: 08-03-2019 End: 08-03-2019 Echo Complete W/ Contrast Comments: See Note; NOTES: [facility] [address] [place] [address] Echo Complete W/ Contrast 08/03/19 1031 MR#: [id number] Acct: [id number] Name: MONICA ROTH Rep #: [id number] : 1945 74 From: Vernon Best MD Attending Dr: Dr. Odalys Garcia DO Status: R EG CLI Ordering Dr: Odalys Garcia DO Date: 08/03/19 Location: [facility] Sex: F C Admitted: Reason For Study: Mitral Valve Prolapse Procedure This was a 2D Doppler, Color Flow transthoracic echocardiogram. The study was technically difficult. Contrast injection was performed. Exam performed in department. Left Ventricle Normal LV size. Left ventricular systolic function is normal. The estimated ejection fraction is 60 %. No evidence for diastolic dysfunction. No regional wall motion abnormalities noted. Right Ventricle Normal RV size. Normal systolic function. Atria Normal left atrium. Normal right atrium. No doppler evidence for ASD. Mitral Valve There is no mitral annular calcification. Normal mitral valve. Mild (1+) mitral valve insufficiency. Tricuspid Valve Normal tricuspid valve. Trivial tricuspid valve insufficiency. Right ventricular systolic pressure estimated to be 23 mmHg. Aortic Valve Trisinus/trileaflet aortic valve. Normal aortic valve. Trivial aortic valve insufficiency. Pulmonic Valve The pulmonic valve is not well visualized. Trivial pulmonic valve insufficiency. Great Vessels Normal sized aortic root. Pericardium/Pleural No pericardial effusion. Medication 22 gauge I.V. with prn adaptor inserted into right arm. Diluted definity 2ml given slow IV push to enhance endocardial definition. MMode/2D Measurements Calculations LVIDd: 4.6 cm IVSd: 0.91 cm Ao root diam: 3.0 cm LVIDs: 2.9 cm LVPWd: 0.96 cm RVDd: 3.1 cm FS: 36.3 % LAV(MOD-bp): 29.4 ml LVAd ap4: 25.8 cm2 SV(MOD-sp4): 50.3 ml LAV(MOD-bp) Indexed: 16.9 ml/m2 EDV(MOD-sp4): 77.1 ml LAV(MOD-sp2): 31.7 ml EDV(sp4-el): 80.1 ml LAV(MOD-sp4): 25.0 ml LVAs ap4: 13.9 cm2 ESV(MOD-sp4): 26.8 ml ESV(sp4-el): 27.0 ml EF(MOD-sp4): 65.2 % EF(sp4-el): 66.3 % SV(sp4-el): 53.1 ml LA A4 area: 11.0 cm2 LA dimension(2D): 3.6 cm RA A4 area: 8.9 cm2 Time Measurements MV dec time: 0.19 sec Doppler Measurements Calculations MV E max brandon: 59.1 cm/sec Lat Peak E' Brandon: 7.4 cm/sec Med Peak E' Brandon: 7.2 cm/sec MV A max brandon: 91.7 cm/sec E/E' lat: 7.9 E/E' med: 8.2 MV E/A: 0.64 Ao V2 max: 109.8 cm/sec AI max brandon: 341.5 cm/sec LV V1 max: 91.4 cm/sec Ao max P.8 mmHg AI max P.7 mmHg LV V1 max P.3 mmHg AI dec slope: 186.0 cm/sec2 AI P1/2t: 537.7 msec PA V2 max: 76.9 cm/sec TR max brandon: 224.5 cm/sec TR max P.2 mmHg Interpretation Summary The study was technically difficult. Contrast injection was performed. Left ventricular systolic function is normal. The estimated ejection fraction is 60 %. Mild (1+) mitral valve insufficiency. Trivial tricuspid valve insufficiency. Trivial aortic valve insufficiency. Trivial pulmonic valve insufficiency. Right ventricular systolic pressure estimated to be 23 mmHg. No evidence for diastolic dysfunction. _ Ordering Physician: Odalys Garcia Referring Physician: Odalys Garcia Performed By: Jade Das SUNNY 08/03/19 1429 Date Vernon Best MD CC: Dr. Odalys Garcia, DO Date Dictated: 08/03/19 1031 Date Transcribed: 08/03/191428 Ssn/Ssbn Weapons Equipment Operator: Signed Odalys Garcia Work Phone: Start: 08-03-2019 End: 08-11-2019 Dexa Bone Density Study Comments: See Note; NOTES: [facility] Imaging Services [address] [place] [id number] Dexa Bone Density Study MR#: [id number] Acct: [id number] Name: MONICA ROTH Rep #: [id number] : 1945 F 74 From: Elbert silva MD PCP: Dr. Odalys Garcia DO Status: [facility] Study: Dexa Bone Density Study Date of Exam: 08/03/19 Exam# [id number] Ordering Dr: Odalys Garcia DO STUDY: DUAL ENERGY X-RAY ABSORPTIOMETRY / DXA REASON FOR EXAM: Female, 74 years old. 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 COMPARISON: None. FINDINGS: Lumbar Spine (L1-L4): g/cm2 (1.125) / T-score (0.5) / Z-score (1.3) Findings are suggestive of normal bone density with a low fracture risk. Left Femur Total: g/cm2 (0.964) / T-score (-0.3) / Z-score (1.3) Left Femoral Neck: g/cm2 (0.816) / T-score (-1.6) / Z-score (0.2) Right Femur Total: g/cm2 (0.998) / T-score (-0.1) / Z-score (1.8) Right Femoral Neck: g/cm2 (0.866) / T-score (-1.2) / Z-score (0.6) BD/Dexa Bone Density Study IMPRESSION: The patient is considered osteopenic as outlined below according to World Michael Organization (WHO) criteria with a moderate fracture risk. Reference Information: The T-score is the number of standard deviations above or below the standard which is normal for young adults at their peak bone mineral density. The World Health Organization (WHO) interprets the T-scores as follows: Above -1 Normal bone density Between -1 and -2.5 Osteopenia Equal to / or below -2.5 Osteoporosis As a practical clinical guideline, osteopenia may be graded as follows: Mild -1 through -1.5 Moderate -1.6 through -2.0 Severe -2.1 through -2.4 The Z-score is the number of standard deviations above or below age-matched controls. A Z-score of less than -1.5 would be considered abnormal. References: 1. NIH Osteoporosis and Related Bone Diseases http://www.osteo.org 2. International Society for Clinical Densitometry http://www.iscd.org 3. National Osteoporosis Foundation http://www.nof.org Electronically Signed: Elbert Givens, at 8:52 EDT , Service support , CC: Dr. Odalys Garcia, Ssn/Ssbn Weapons Equipment Operator: Signed Odalys Garcia Work Phone: Plan of Treatment Date Care Activity Detail Author Start: 09-11-2022 Procedure Education Eprescribed prescriptions (G8553) [facility] Work Phone: Start: 09-11-2022 Provider Instructions for Treatment [facility] Work Phone: Start: 08-01-2022 Procedure Education Eprescribed prescriptions (G8553) [facility]; [facility] Work Phone: Start: 01-28-2022 Procedure Education Eprescribed prescriptions (G8553) [facility]; [facility] Work Phone: Start: 01-28-2022 Provider Instructions for Treatment [facility] Work Phone: Start: 01-28-2022 Lipid panel LIPID PANEL (81265) [facility] Work Phone: Start: 01-28-2022 25 hydroxy includes fractions if performed CALCIFIDIOL (64827) VIT D 25 [facility]; [facility] Work Phone: Start: 01-28-2022 Urnls dip stick/tablet reagent auto microscopy URINALYSIS, W/ MICRO (78163) [facility]; [facility] Work Phone: Start: 01-28-2022 Urine albumin quantitative MICROALBUMIN: CREATININE RATIO (08392) AND (68877) [facility]; [facility] Work Phone: Start: 01-28-2022 Comprehensive metabolic panel METABOLIC PANEL, COMPREHENSIVE (52182) [facility]; [facility] Work Phone: Start: 01-28-2022 Blood count complete auto&auto difrntl wbc CBC W/AUTO DIFF WBC (80398) [facility]; [facility] Work Phone: Start: 01-28-2022 Assay of thyroid stimulating hormone tsh TSH (14667) [facility]; [facility] Work Phone: Start: 08-01-2021 Procedure Education Eprescribed prescriptions (G8553) [facility]; [facility] Work Phone: Start: 08-01-2021 Provider Instructions for Treatment [facility]; [facility] Work Phone: Start: 08-01-2021 Assay of thyroid stimulating hormone tsh TSH (36729) [facility]; [facility] Work Phone: Start: 08-01-2021 Urnls dip stick/tablet reagent auto microscopy URINALYSIS, W/ MICRO (67004) [facility]; [facility] Work Phone: Start: 08-01-2021 Urine albumin quantitative MICROALBUMIN: CREATININE RATIO (44305) AND (47719) [facility]; [facility] Work Phone: Start: 08-01-2021 Comprehensive metabolic panel METABOLIC PANEL, COMPREHENSIVE (27144) [facility]; [facility] Work Phone: Start: 08-01-2021 Blood count complete auto&auto difrntl wbc CBC W/AUTO DIFF WBC (58459) [facility]; [facility] Work Phone: Start: 08-01-2021 Lipid panel LIPID PANEL (70537) [facility] Work Phone: Start: 06-22-2021 Procedure Education Eprescribed prescriptions (G8553) [facility]; [facility] Work Phone: Start: 06-22-2021 Provider Instructions for Treatment [facility] Work Phone: Start: 06-22-2021 Hepatitis c antibody HEPATITIS C ANTIBODY (39590) [facility]; [facility] Work Phone: Start: 05-17-2021 Procedure Education Eprescribed prescriptions (G8553) [facility]; [facility] Work Phone: Start: 02-12-2021 Procedure Education Eprescribed prescriptions (G8553) [facility]; [facility] Work Phone: Start: 08-03-2020 Procedure Education Eprescribed prescriptions (G8553) [facility]; [facility] Work Phone: Start: 08-03-2020 Provider Instructions for Treatment Continue Current Prescription(s) [facility]; [facility] Work Phone: Start: 07-05-2020 Procedure Education Eprescribed prescriptions (G8553) [facility]; [facility] Work Phone: Start: 07-05-2020 Provider Instructions for Treatment COVID SCREENING FORM [facility]; [facility] Work Phone: Start: 06-07-2020 Procedure Education Eprescribed prescriptions (G8553) [facility]; [facility] Work Phone: Start: 06-07-2020 Provider Instructions for Treatment [facility] Work Phone: Start: 03-15-2020 Procedure Education Eprescribed prescriptions (G8553) [facility]; [facility] Work Phone: Start: 03-15-2020 Provider Instructions for Treatment [facility] Work Phone: Start: 02-16-2020 Procedure Education Eprescribed prescriptions (G8553) [facility]; [facility] Work Phone: Start: 02-16-2020 Provider Instructions for Treatment Follow up if no improvement or if symptoms worsen [facility]; [facility] Work Phone: Start: 02-15-2020 Procedure Education Eprescribed prescriptions (G8553) [facility]; [facility] Work Phone: Start: 02-15-2020 Provider Instructions for Treatment Follow up tomorrow, for a virtual phone call with [facility] Work Phone: Start: 02-15-2020 Culture bct isol&prsmptv id isolate ea urine URINE LINDA CULTURE-IDENTIFICATN (55993) [facility]; [facility] Work Phone: Start: 02-15-2020 Iaadiadoo influenza 2019 Novel Coronavirus (COVID-19), ALICE (42050) [facility]; [facility] Work Phone: Start: 08-26-2019 Procedure Education Eprescribed prescriptions (G8553) [facility] Work Phone: Start: 08-26-2019 Provider Instructions for Treatment [facility] Work Phone: Start: 08-09-2019 Procedure Education Eprescribed prescriptions (G8553) [facility] Work Phone: Start: 08-09-2019 Provider Instructions for Treatment [facility] Work Phone: Start: 07-14-2019 Procedure Education Eprescribed prescriptions (G8553) [facility] Work Phone: Start: 07-14-2019 Provider Instructions for Treatment Cholesterol mgmt [facility] Work Phone: [facility] Work Phone: [facility] Work Phone: [facility] Work Phone: [facility] Work Phone: [facility]: [facility] Work Phone: [facility] Work Phone: [facility] Work Phone: [facility] Work Phone: [facility] Work Phone: [facility] Work Phone: [facility] Work Phone: Immunizations Immunization Date Immunization Notes Care Provider Fa lacey 08-01-2021 pneumococcal polysaccharide vaccine, 23 valent Odalys Garcia DO Work Phone: [facility]; [facility] Work Phone: Payers Date Payer Category Payer Medicare [id number] 1945 Unknown [id number] Unknown Social History Date Type Detail Facility Alcohol Use Alcohol Use [facility] Work Phone: Functional Status Date Assessment Result Facility 07-14-2019 LP-IR Score LP-IR Score 40 [facility] Work Phone: Clinical Notes Note Date & Type Note Facility [facility] Work Phone: Instructions* Name Dates Details How to Access Health Informa tion Online using Patient Portal and [employer] Apps Indication:Non-smoker Start:07-Jun-2020 Instruction Type:Patient Education Patient Instructions Indication:Non-smoker Start:07-Jun-2020 Instruction Type:Provider Instructions for Treatment Patient Instructions Indication:BMI 27.0-27.9,adult Start:15-Mar-2020 Instruction Type:Provider Instructions for Treatment How to Access Health Informa tion Online using Patient Portal and [employer] Indication:BMI 27.0-27.9,adult Start:15-Mar-2020 Instruction Type:Patient Education Patient Instructions Indication:BMI 27.0-27.9,adult Start:16-Feb-2020 Instruction Type:Provider Instructions for Treatment How to Access Health Informa tion Online using Patient Portal and [employer] Indication:BMI 27.0-27.9,adult Start:16-Feb-2020 Instruction Type:Patient Education Patient Instructions Indication:Non-smoker Start:15-Feb-2020 Instruction Type:Provider Instructions for Treatment How to Access Health Informa tion Online using Patient Portal and [employer] Indication:Non-smoker Start:15-Feb-2020 Instruction Type:Patient Education How to access health informa tion online Indication:Non-smoker Start:26-Aug-2019 Instruction Type:Patient Education How to access health informa tion online - Detail Indication:Non-smoker Start:26-Aug-2019 Instruction Type:Patient Education Patient Instructions Indication:Non-smoker Start:26-Aug-2019 Instruction Type:Provider Instructions for Treatment How to access health informa tion online Indication:BMI 27.0-27.9,adult Start:09-Aug-2019 Instruction Type:Patient Education How to access health informa tion online - Detail Indication:BMI 27.0-27.9,adult Start:09-Aug-2019 Instruction Type:Patient Education Patient Instructions Indication:BMI 27.0-27.9,adult Start:09-Aug-2019 Instruction Type:Provider Instructions for Treatment How to access health informa tion online Indication:Non-smoker Start:14-Jul-2019 Instruction Type:Patient Education How to access health informa tion online - Detail Indication:Non-smoker Start:14-Jul-2019 Instruction Type:Patient Education Patient Instructions Indication:Non-smoker Start:14-Jul-2019 Instruction Type:Provider Instructions for Treatment [facility]; [facility] Work Phone: Instructions* Name Dates Details How to Access Health Informa tion Online using Patient Portal and [employer] Apps Indication:Non-smoker Start:07-Jun-2020 Instruction Type:Patient Education Patient Instructions Indication:Non-smoker Start:07-Jun-2020 Instruction Type:Provider Instructions for Treatment Patient Instructions Indication:BMI 27.0-27.9,adult Start:15-Mar-2020 Instruction Type:Provider Instructions for Treatment How to Access Health Informa tion Online using Patient Portal and [employer] Apps Indication:BMI 27.0-27.9,adult Start:15-Mar-2020 Instruction Type:Patient Education Patient Instructions Indication:BMI 27.0-27.9,adult Start:16-Feb-2020 Instruction Type:Provider Instructions for Treatment How to Access Health Informa tion Online using Patient Portal and [employer] Apps Indication:BMI 27.0-27.9,adult Start:16-Feb-2020 Instruction Type:Patient Education Patient Instructions Indication:Non-smoker Start:15-Feb-2020 Instruction Type:Provider Instructions for Treatment How to Access Health Informa tion Online using Patient Portal and [employer] Apps Indication:Non-smoker Start:15-Feb-2020 Instruction Type:Patient Education How to access health informa tion online Indication:Non-smoker Start:26-Aug-2019 Instruction Type:Patient Education How to access health informa tion online - Detail Indication:Non-smoker Start:26-Aug-2019 Instruction Type:Patient Education Patient Instructions Indication:Non-smoker Start:26-Aug-2019 Instruction Type:Provider Instructions for Treatment How to access health informa tion online Indication:BMI 27.0-27.9,adult Start:09-Aug-2019 Instruction Type:Patient Education How to access health informa tion online - Detail Indication:BMI 27.0-27.9,adult Start:09-Aug-2019 Instruction Type:Patient Education Patient Instructions Indication:BMI 27.0-27.9,adult Start:09-Aug-2019 Instruction Type:Provider Instructions for Treatment How to access health informa tion online Indication:Non-smoker Start:14-Jul-2019 Instruction Type:Patient Education How to access health informa tion online - Detail Indication:Non-smoker Start:14-Jul-2019 Instruction Type:Patient Education Patient Instructions Indication:Non-smoker Start:14-Jul-2019 Instruction Type:Provider Instructions for Treatment [facility]; [facility] Work Phone: Instructions* Name Dates Details How to Access Health Informa tion Online using Patient Portal and [employer] Apps Indication:Non-smoker Start:07-Jun-2020 Instruction Type:Patient Education Patient Instructions Indication:Non-smoker Start:07-Jun-2020 Instruction Type:Provider Instructions for Treatment Patient Instructions Indication:BMI 27.0-27.9,adult Start:15-Mar-2020 Instruction Type:Provider Instructions for Treatment How to Access Health Informa tion Online using Patient Portal and [employer] Apps Indication:BMI 27.0-27.9,adult Start:15-Mar-2020 Instruction Type:Patient Education Patient Instructions Indication:BMI 27.0-27.9,adult Start:16-Feb-2020 Instruction Type:Provider Instructions for Treatment How to Access Health Informa tion Online using Patient Portal and [employer] Apps Indication:BMI 27.0-27.9,adult Start:16-Feb-2020 Instruction Type:Patient Education Patient Instructions Indication:Non-smoker Start:15-Feb-2020 Instruction Type:Provider Instructions for Treatment How to Access Health Informa tion Online using Patient Portal and [employer] Apps Indication:Non-smoker Start:15-Feb-2020 Instruction Type:Patient Education How to access health informa tion online Indication:Non-smoker Start:26-Aug-2019 Instruction Type:Patient Education How to access health informa tion online - Detail Indication:Non-smoker Start:26-Aug-2019 Instruction Type:Patient Education Patient Instructions Indication:Non-smoker Start:26-Aug-2019 Instruction Type:Provider Instructions for Treatment How to access health informa tion online Indication:BMI 27.0-27.9,adult Start:09-Aug-2019 Instruction Type:Patient Education How to access health informa tion online - Detail Indication:BMI 27.0-27.9,adult Start:09-Aug-2019 Instruction Type:Patient Education Patient Instructions Indication:BMI 27.0-27.9,adult Start:09-Aug-2019 Instruction Type:Provider Instructions for Treatment How to access health informa tion online Indication:Non-smoker Start:14-Jul-2019 Instruction Type:Patient Education How to access health informa tion online - Detail Indication:Non-smoker Start:14-Jul-2019 Instruction Type:Patient Education Patient Instructions Indication:Non-smoker Start:14-Jul-2019 Instruction Type:Provider Instructions for Treatment [facility]; [facility] Work Phone: Instructions* Name Dates Details How to Access Health Informa tion Online using Patient Portal and [employer] Apps Indication:Non-smoker Start:05-Jul-2020 Instruction Type:Patient Education Patient Instructions Indication:Non-smoker Start:05-Jul-2020 Instruction Type:Provider Instructions for Treatment How to Access Health Informa tion Online using Patient Portal and [employer] Apps Indication:Non-smoker Start:07-Jun-2020 Instruction Type:Patient Education Patient Instructions Indication:Non-smoker Start:07-Jun-2020 Instruction Type:Provider Instructions for Treatment Patient Instructions Indication:BMI 27.0-27.9,adult Start:15-Mar-2020 Instruction Type:Provider Instructions for Treatment How to Access Health Informa tion Online using Patient Portal and [employer] Indication:BMI 27.0-27.9,adult Start:15-Mar-2020 Instruction Type:Patient Education Patient Instructions Indication:BMI 27.0-27.9,adult Start:16-Feb-2020 Instruction Type:Provider Instructions for Treatment How to Access Health Informa tion Online using Patient Portal and [employer] Indication:BMI 27.0-27.9,adult Start:16-Feb-2020 Instruction Type:Patient Education Patient Instructions Indication:Non-smoker Start:15-Feb-2020 Instruction Type:Provider Instructions for Treatment How to Access Health Informa tion Online using Patient Portal and [employer] Apps Indication:Non-smoker Start:15-Feb-2020 Instruction Type:Patient Education How to access health informa tion online Indication:Non-smoker Start:26-Aug-2019 Instruction Type:Patient Education How to access health informa tion online - Detail Indication:Non-smoker Start:26-Aug-2019 Instruction Type:Patient Education Patient Instructions Indication:Non-smoker Start:26-Aug-2019 Instruction Type:Provider Instructions for Treatment How to access health informa tion online Indication:BMI 27.0-27.9,adult Start:09-Aug-2019 Instruction Type:Patient Education How to access health informa tion online - Detail Indication:BMI 27.0-27.9,adult Start:09-Aug-2019 Instruction Type:Patient Education Patient Instructions Indication:BMI 27.0-27.9,adult Start:09-Aug-2019 Instruction Type:Provider Instructions for Treatment How to access health informa tion online Indication:Non-smoker Start:14-Jul-2019 Instruction Type:Patient Education How to access health informa tion online - Detail Indication:Non-smoker Start:14-Jul-2019 Instruction Type:Patient Education Patient Instructions Indication:Non-smoker Start:14-Jul-2019 Instruction Type:Provider Instructions for Treatment [facility]; [facility] Work Phone: Instructions* Name Dates Details How to Access Health Informa tion Online using Patient Portal and [employer] Apps Indication:Non-smoker Start:05-Jul-2020 Instruction Type:Patient Education Patient Instructions Indication:Non-smoker Start:05-Jul-2020 Instruction Type:Provider Instructions for Treatment How to Access Health Informa tion Online using Patient Portal and [employer] Apps Indication:Non-smoker Start:07-Jun-2020 Instruction Type:Patient Education Patient Instructions Indication:Non-smoker Start:07-Jun-2020 Instruction Type:Provider Instructions for Treatment Patient Instructions Indication:BMI 27.0-27.9,adult Start:15-Mar-2020 Instruction Type:Provider Instructions for Treatment How to Access Health Informa tion Online using Patient Portal and [employer] Apps Indication:BMI 27.0-27.9,adult Start:15-Mar-2020 Instruction Type:Patient Education Patient Instructions Indication:BMI 27.0-27.9,adult Start:16-Feb-2020 Instruction Type:Provider Instructions for Treatment How to Access Health Informa tion Online using Patient Portal and [employer] Apps Indication:BMI 27.0-27.9,adult Start:16-Feb-2020 Instruction Type:Patient Education Patient Instructions Indication:Non-smoker Start:15-Feb-2020 Instruction Type:Provider Instructions for Treatment How to Access Health Informa tion Online using Patient Portal and [employer] Apps Indication:Non-smoker Start:15-Feb-2020 Instruction Type:Patient Education How to access health informa tion online Indication:Non-smoker Start:26-Aug-2019 Instruction Type:Patient Education How to access health informa tion online - Detail Indication:Non-smoker Start:26-Aug-2019 Instruction Type:Patient Education Patient Instructions Indication:Non-smoker Start:26-Aug-2019 Instruction Type:Provider Instructions for Treatment How to access health informa tion online Indication:BMI 27.0-27.9,adult Start:09-Aug-2019 Instruction Type:Patient Education How to access health informa tion online - Detail Indication:BMI 27.0-27.9,adult Start:09-Aug-2019 Instruction Type:Patient Education Patient Instructions Indication:BMI 27.0-27.9,adult Start:09-Aug-2019 Instruction Type:Provider Instructions for Treatment How to access health informa tion online Indication:Non-smoker Start:14-Jul-2019 Instruction Type:Patient Education How to access health informa tion online - Detail Indication:Non-smoker Start:14-Jul-2019 Instruction Type:Patient Education Patient Instructions Indication:Non-smoker Start:14-Jul-2019 Instruction Type:Provider Instructions for Treatment [facility]; [facility] Work Phone: Instructions* Name Dates Details How to Access Health Informa tion Online using Patient Portal and [employer] Indication:Non-smoker Start:05-Jul-2020 Instruction Type:Patient Education Patient Instructions Indication:Non-smoker Start:05-Jul-2020 Instruction Type:Provider Instructions for Treatment How to Access Health Informa tion Online using Patient Portal and [employer] Apps Indication:Non-smoker Start:07-Jun-2020 Instruction Type:Patient Education Patient Instructions Indication:Non-smoker Start:07-Jun-2020 Instruction Type:Provider Instructions for Treatment Patient Instructions Indication:BMI 27.0-27.9,adult Start:15-Mar-2020 Instruction Type:Provider Instructions for Treatment How to Access Health Informa tion Online using Patient Portal and [employer] Apps Indication:BMI 27.0-27.9,adult Start:15-Mar-2020 Instruction Type:Patient Education Patient Instructions Indication:BMI 27.0-27.9,adult Start:16-Feb-2020 Instruction Type:Provider Instructions for Treatment How to Access Health Informa tion Online using Patient Portal and [employer] Apps Indication:BMI 27.0-27.9,adult Start:16-Feb-2020 Instruction Type:Patient Education Patient Instructions Indication:Non-smoker Start:15-Feb-2020 Instruction Type:Provider Instructions for Treatment How to Access Health Informa tion Online using Patient Portal and [employer] Apps Indication:Non-smoker Start:15-Feb-2020 Instruction Type:Patient Education How to access health informa tion online Indication:Non-smoker Start:26-Aug-2019 Instruction Type:Patient Education How to access health informa tion online - Detail Indication:Non-smoker Start:26-Aug-2019 Instruction Type:Patient Education Patient Instructions Indication:Non-smoker Start:26-Aug-2019 Instruction Type:Provider Instructions for Treatment How to access health informa tion online Indication:BMI 27.0-27.9,adult Start:09-Aug-2019 Instruction Type:Patient Education How to access health informa tion online - Detail Indication:BMI 27.0-27.9,adult Start:09-Aug-2019 Instruction Type:Patient Education Patient Instructions Indication:BMI 27.0-27.9,adult Start:09-Aug-2019 Instruction Type:Provider Instructions for Treatment How to access health informa tion online Indication:Non-smoker Start:14-Jul-2019 Instruction Type:Patient Education How to access health informa tion online - Detail Indication:Non-smoker Start:14-Jul-2019 Instruction Type:Patient Education Patient Instructions Indication:Non-smoker Start:14-Jul-2019 Instruction Type:Provider Instructions for Treatment [facility]; [facility] Work Phone: Instructions* Name Dates Details How to Access Health Informa tion Online using Patient Portal and [employer] Apps Indication:Non-smoker Start:03-Aug-2020 Instruction Type:Patient Education Patient Instructions Indication:Non-smoker Start:03-Aug-2020 Instruction Type:Provider Instructions for Treatment How to Access Health Informa tion Online using Patient Portal and [employer] Apps Indication:Non-smoker Start:05-Jul-2020 Instruction Type:Patient Education Patient Instructions Indication:Non-smoker Start:05-Jul-2020 Instruction Type:Provider Instructions for Treatment How to Access Health Informa tion Online using Patient Portal and [employer] Apps Indication:Non-smoker Start:07-Jun-2020 Instruction Type:Patient Education Patient Instructions Indication:Non-smoker Start:07-Jun-2020 Instruction Type:Provider Instructions for Treatment Patient Instructions Indication:BMI 27.0-27.9,adult Start:15-Mar-2020 Instruction Type:Provider Instructions for Treatment How to Access Health Informa tion Online using Patient Portal and [employer] Indication:BMI 27.0-27.9,adult Start:15-Mar-2020 Instruction Type:Patient Education Patient Instructions Indication:BMI 27.0-27.9,adult Start:16-Feb-2020 Instruction Type:Provider Instructions for Treatment How to Access Health Informa tion Online using Patient Portal and [employer] Apps Indication:BMI 27.0-27.9,adult Start:16-Feb-2020 Instruction Type:Patient Education Patient Instructions Indication:Non-smoker Start:15-Feb-2020 Instruction Type:Provider Instructions for Treatment How to Access Health Informa tion Online using Patient Portal and [employer] Indication:Non-smoker Start:15-Feb-2020 Instruction Type:Patient Education How to access health informa tion online Indication:Non-smoker Start:26-Aug-2019 Instruction Type:Patient Education How to access health informa tion online - Detail Indication:Non-smoker Start:26-Aug-2019 Instruction Type:Patient Education Patient Instructions Indication:Non-smoker Start:26-Aug-2019 Instruction Type:Provider Instructions for Treatment How to access health informa tion online Indication:BMI 27.0-27.9,adult Start:09-Aug-2019 Instruction Type:Patient Education How to access health informa tion online - Detail Indication:BMI 27.0-27.9,adult Start:09-Aug-2019 Instruction Type:Patient Education Patient Instructions Indication:BMI 27.0-27.9,adult Start:09-Aug-2019 Instruction Type:Provider Instructions for Treatment How to access health informa tion online Indication:Non-smoker Start:14-Jul-2019 Instruction Type:Patient Education How to access health informa tion online - Detail Indication:Non-smoker Start:14-Jul-2019 Instruction Type:Patient Education Patient Instructions Indication:Non-smoker Start:14-Jul-2019 Instruction Type:Provider Instructions for Treatment [facility]; [facility] Work Phone: Instructions* Name Dates Details Patient Instructions Indication:BMI 27.0-27.9,adult Start:12-Feb-2021 Instruction Type:Provider Instructions for Treatment How to Access Health Informa tion Online using Patient Portal and [employer] Indication:BMI 27.0-27.9,adult Start:12-Feb-2021 Instruction Type:Patient Education How to Access Health Informa tion Online using Patient Portal and [employer] Indication:Non-smoker Start:03-Aug-2020 Instruction Type:Patient Education Patient Instructions Indication:Non-smoker Start:03-Aug-2020 Instruction Type:Provider Instructions for Treatment How to Access Health Informa tion Online using Patient Portal and [employer] Indication:Non-smoker Start:05-Jul-2020 Instruction Type:Patient Education Patient Instructions Indication:Non-smoker Start:05-Jul-2020 Instruction Type:Provider Instructions for Treatment How to Access Health Informa tion Online using Patient Portal and [employer] Indication:Non-smoker Start:07-Jun-2020 Instruction Type:Patient Education Patient Instructions Indication:Non-smoker Start:07-Jun-2020 Instruction Type:Provider Instructions for Treatment Patient Instructions Indication:BMI 27.0-27.9,adult Start:15-Mar-2020 Instruction Type:Provider Instructions for Treatment How to Access Health Informa tion Online using Patient Portal and [employer] Indication:BMI 27.0-27.9,adult Start:15-Mar-2020 Instruction Type:Patient Education Patient Instructions Indication:BMI 27.0-27.9,adult Start:16-Feb-2020 Instruction Type:Provider Instructions for Treatment How to Access Health Informa tion Online using Patient Portal and [employer] Indication:BMI 27.0-27.9,adult Start:16-Feb-2020 Instruction Type:Patient Education Patient Instructions Indication:Non-smoker Start:15-Feb-2020 Instruction Type:Provider Instructions for Treatment How to Access Health Informa tion Online using Patient Portal and [employer] Indication:Non-smoker Start:15-Feb-2020 Instruction Type:Patient Education How to access health informa tion online Indication:Non-smoker Start:26-Aug-2019 Instruction Type:Patient Education How to access health informa tion online - Detail Indication:Non-smoker Start:26-Aug-2019 Instruction Type:Patient Education Patient Instructions Indication:Non-smoker Start:26-Aug-2019 Instruction Type:Provider Instructions for Treatment How to access health informa tion online Indication:BMI 27.0-27.9,adult Start:09-Aug-2019 Instruction Type:Patient Education How to access health informa tion online - Detail Indication:BMI 27.0-27.9,adult Start:09-Aug-2019 Instruction Type:Patient Education Patient Instructions Indication:BMI 27.0-27.9,adult Start:09-Aug-2019 Instruction Type:Provider Instructions for Treatment How to access health informa tion online Indication:Non-smoker Start:14-Jul-2019 Instruction Type:Patient Education How to access health informa tion online - Detail Indication:Non-smoker Start:14-Jul-2019 Instruction Type:Patient Education Patient Instructions Indication:Non-smoker Start:14-Jul-2019 Instruction Type:Provider Instructions for Treatment [facility]; [facility] Work Phone: Instructions* Name Dates Details Patient Instructions Indication:BMI 27.0-27.9,adult Start:12-Feb-2021 Instruction Type:Provider Instructions for Treatment How to Access Health Informa tion Online using Patient Portal and [employer] Indication:BMI 27.0-27.9,adult Start:12-Feb-2021 Instruction Type:Patient Education How to Access Health Informa tion Online using Patient Portal and [employer] Apps Indication:Non-smoker Start:03-Aug-2020 Instruction Type:Patient Education Patient Instructions Indication:Non-smoker Start:03-Aug-2020 Instruction Type:Provider Instructions for Treatment How to Access Health Informa tion Online using Patient Portal and [employer] Indication:Non-smoker Start:05-Jul-2020 Instruction Type:Patient Education Patient Instructions Indication:Non-smoker Start:05-Jul-2020 Instruction Type:Provider Instructions for Treatment How to Access Health Informa tion Online using Patient Portal and [employer] Indication:Non-smoker Start:07-Jun-2020 Instruction Type:Patient Education Patient Instructions Indication:Non-smoker Start:07-Jun-2020 Instruction Type:Provider Instructions for Treatment Patient Instructions Indication:BMI 27.0-27.9,adult Start:15-Mar-2020 Instruction Type:Provider Instructions for Treatment How to Access Health Informa tion Online using Patient Portal and [employer] Indication:BMI 27.0-27.9,adult Start:15-Mar-2020 Instruction Type:Patient Education Patient Instructions Indication:BMI 27.0-27.9,adult Start:16-Feb-2020 Instruction Type:Provider Instructions for Treatment How to Access Health Informa tion Online using Patient Portal and [employer] Indication:BMI 27.0-27.9,adult Start:16-Feb-2020 Instruction Type:Patient Education Patient Instructions Indication:Non-smoker Start:15-Feb-2020 Instruction Type:Provider Instructions for Treatment How to Access Health Informa tion Online using Patient Portal and [employer] Indication:Non-smoker Start:15-Feb-2020 Instruction Type:Patient Education How to access health informa tion online Indication:Non-smoker Start:26-Aug-2019 Instruction Type:Patient Education How to access health informa tion online - Detail Indication:Non-smoker Start:26-Aug-2019 Instruction Type:Patient Education Patient Instructions Indication:Non-smoker Start:26-Aug-2019 Instruction Type:Provider Instructions for Treatment How to access health informa tion online Indication:BMI 27.0-27.9,adult Start:09-Aug-2019 Instruction Type:Patient Education How to access health informa tion online - Detail Indication:BMI 27.0-27.9,adult Start:09-Aug-2019 Instruction Type:Patient Education Patient Instructions Indication:BMI 27.0-27.9,adult Start:09-Aug-2019 Instruction Type:Provider Instructions for Treatment How to access health informa tion online Indication:Non-smoker Start:14-Jul-2019 Instruction Type:Patient Education How to access health informa tion online - Detail Indication:Non-smoker Start:14-Jul-2019 Instruction Type:Patient Education Patient Instructions Indication:Non-smoker Start:14-Jul-2019 Instruction Type:Provider Instructions for Treatment [facility]; [facility] Work Phone: Instructions* Name Dates Details Patient Instructions Indication:BMI 27.0-27.9,adult Start:12-Feb-2021 Instruction Type:Provider Instructions for Treatment How to Access Health Informa tion Online using Patient Portal and [employer] Indication:BMI 27.0-27.9,adult Start:12-Feb-2021 Instruction Type:Patient Education How to Access Health Informa tion Online using Patient Portal and [employer] Apps Indication:Non-smoker Start:03-Aug-2020 Instruction Type:Patient Education Patient Instructions Indication:Non-smoker Start:03-Aug-2020 Instruction Type:Provider Instructions for Treatment How to Access Health Informa tion Online using Patient Portal and [employer] Indication:Non-smoker Start:05-Jul-2020 Instruction Type:Patient Education Patient Instructions Indication:Non-smoker Start:05-Jul-2020 Instruction Type:Provider Instructions for Treatment How to Access Health Informa tion Online using Patient Portal and [employer] Indication:Non-smoker Start:07-Jun-2020 Instruction Type:Patient Education Patient Instructions Indication:Non-smoker Start:07-Jun-2020 Instruction Type:Provider Instructions for Treatment Patient Instructions Indication:BMI 27.0-27.9,adult Start:15-Mar-2020 Instruction Type:Provider Instructions for Treatment How to Access Health Informa tion Online using Patient Portal and [employer] Indication:BMI 27.0-27.9,adult Start:15-Mar-2020 Instruction Type:Patient Education Patient Instructions Indication:BMI 27.0-27.9,adult Start:16-Feb-2020 Instruction Type:Provider Instructions for Treatment How to Access Health Informa tion Online using Patient Portal and [employer] Indication:BMI 27.0-27.9,adult Start:16-Feb-2020 Instruction Type:Patient Education Patient Instructions Indication:Non-smoker Start:15-Feb-2020 Instruction Type:Provider Instructions for Treatment How to Access Health Informa tion Online using Patient Portal and [employer] Indication:Non-smoker Start:15-Feb-2020 Instruction Type:Patient Education How to access health informa tion online Indication:Non-smoker Start:26-Aug-2019 Instruction Type:Patient Education How to access health informa tion online - Detail Indication:Non-smoker Start:26-Aug-2019 Instruction Type:Patient Education Patient Instructions Indication:Non-smoker Start:26-Aug-2019 Instruction Type:Provider Instructions for Treatment How to access health informa tion online Indication:BMI 27.0-27.9,adult Start:09-Aug-2019 Instruction Type:Patient Education How to access health informa tion online - Detail Indication:BMI 27.0-27.9,adult Start:09-Aug-2019 Instruction Type:Patient Education Patient Instructions Indication:BMI 27.0-27.9,adult Start:09-Aug-2019 Instruction Type:Provider Instructions for Treatment How to access health informa tion online Indication:Non-smoker Start:14-Jul-2019 Instruction Type:Patient Education How to access health informa tion online - Detail Indication:Non-smoker Start:14-Jul-2019 Instruction Type:Patient Education Patient Instructions Indication:Non-smoker Start:14-Jul-2019 Instruction Type:Provider Instructions for Treatment [facility]; [facility] Work Phone: Instructions* Name Dates Details Patient Instructions Indication:BMI 27.0-27.9,adult Start:12-Feb-2021 Instruction Type:Provider Instructions for Treatment How to Access Health Informa tion Online using Patient Portal and [employer] Indication:BMI 27.0-27.9,adult Start:12-Feb-2021 Instruction Type:Patient Education How to Access Health Informa tion Online using Patient Portal and [employer] Apps Indication:Non-smoker Start:03-Aug-2020 Instruction Type:Patient Education Patient Instructions Indication:Non-smoker Start:03-Aug-2020 Instruction Type:Provider Instructions for Treatment How to Access Health Informa tion Online using Patient Portal and [employer] Indication:Non-smoker Start:05-Jul-2020 Instruction Type:Patient Education Patient Instructions Indication:Non-smoker Start:05-Jul-2020 Instruction Type:Provider Instructions for Treatment How to Access Health Informa tion Online using Patient Portal and [employer] Indication:Non-smoker Start:07-Jun-2020 Instruction Type:Patient Education Patient Instructions Indication:Non-smoker Start:07-Jun-2020 Instruction Type:Provider Instructions for Treatment Patient Instructions Indication:BMI 27.0-27.9,adult Start:15-Mar-2020 Instruction Type:Provider Instructions for Treatment How to Access Health Informa tion Online using Patient Portal and [employer] Indication:BMI 27.0-27.9,adult Start:15-Mar-2020 Instruction Type:Patient Education Patient Instructions Indication:BMI 27.0-27.9,adult Start:16-Feb-2020 Instruction Type:Provider Instructions for Treatment How to Access Health Informa tion Online using Patient Portal and [employer] Indication:BMI 27.0-27.9,adult Start:16-Feb-2020 Instruction Type:Patient Education Patient Instructions Indication:Non-smoker Start:15-Feb-2020 Instruction Type:Provider Instructions for Treatment How to Access Health Informa tion Online using Patient Portal and [employer] Apps Indication:Non-smoker Start:15-Feb-2020 Instruction Type:Patient Education How to access health informa tion online Indication:Non-smoker Start:26-Aug-2019 Instruction Type:Patient Education How to access health informa tion online - Detail Indication:Non-smoker Start:26-Aug-2019 Instruction Type:Patient Education Patient Instructions Indication:Non-smoker Start:26-Aug-2019 Instruction Type:Provider Instructions for Treatment How to access health informa tion online Indication:BMI 27.0-27.9,adult Start:09-Aug-2019 Instruction Type:Patient Education How to access health informa tion online - Detail Indication:BMI 27.0-27.9,adult Start:09-Aug-2019 Instruction Type:Patient Education Patient Instructions Indication:BMI 27.0-27.9,adult Start:09-Aug-2019 Instruction Type:Provider Instructions for Treatment How to access health informa tion online Indication:Non-smoker Start:14-Jul-2019 Instruction Type:Patient Education How to access health informa tion online - Detail Indication:Non-smoker Start:14-Jul-2019 Instruction Type:Patient Education Patient Instructions Indication:Non-smoker Start:14-Jul-2019 Instruction Type:Provider Instructions for Treatment [facility]; [facility] Work Phone: Instructions* Name Dates Details Patient Instructions Indication:BMI 28.0-28.9,adult Start:17-May-2021 Instruction Type:Provider Instructions for Treatment How to Access Health Informa tion Online using Patient Portal and [employer] Apps Indication:BMI 28.0-28.9,adult Start:17-May-2021 Instruction Type:Patient Education Patient Instructions Indication:BMI 27.0-27.9,adult Start:12-Feb-2021 Instruction Type:Provider Instructions for Treatment How to Access Health Informa tion Online using Patient Portal and [employer] Indication:BMI 27.0-27.9,adult Start:12-Feb-2021 Instruction Type:Patient Education How to Access Health Informa tion Online using Patient Portal and [employer] Apps Indication:Non-smoker Start:03-Aug-2020 Instruction Type:Patient Education Patient Instructions Indication:Non-smoker Start:03-Aug-2020 Instruction Type:Provider Instructions for Treatment How to Access Health Informa tion Online using Patient Portal and [employer] Apps Indication:Non-smoker Start:05-Jul-2020 Instruction Type:Patient Education Patient Instructions Indication:Non-smoker Start:05-Jul-2020 Instruction Type:Provider Instructions for Treatment How to Access Health Informa tion Online using Patient Portal and [employer] Indication:Non-smoker Start:07-Jun-2020 Instruction Type:Patient Education Patient Instructions Indication:Non-smoker Start:07-Jun-2020 Instruction Type:Provider Instructions for Treatment Patient Instructions Indication:BMI 27.0-27.9,adult Start:15-Mar-2020 Instruction Type:Provider Instructions for Treatment How to Access Health Informa tion Online using Patient Portal and [employer] Indication:BMI 27.0-27.9,adult Start:15-Mar-2020 Instruction Type:Patient Education Patient Instructions Indication:BMI 27.0-27.9,adult Start:16-Feb-2020 Instruction Type:Provider Instructions for Treatment How to Access Health Informa tion Online using Patient Portal and [employer] Indication:BMI 27.0-27.9,adult Start:16-Feb-2020 Instruction Type:Patient Education Patient Instructions Indication:Non-smoker Start:15-Feb-2020 Instruction Type:Provider Instructions for Treatment How to Access Health Informa tion Online using Patient Portal and [employer] Indication:Non-smoker Start:15-Feb-2020 Instruction Type:Patient Education How to access health informa tion online Indication:Non-smoker Start:26-Aug-2019 Instruction Type:Patient Education How to access health informa tion online - Detail Indication:Non-smoker Start:26-Aug-2019 Instruction Type:Patient Education Patient Instructions Indication:Non-smoker Start:26-Aug-2019 Instruction Type:Provider Instructions for Treatment How to access health informa tion online Indication:BMI 27.0-27.9,adult Start:09-Aug-2019 Instruction Type:Patient Education How to access health informa tion online - Detail Indication:BMI 27.0-27.9,adult Start:09-Aug-2019 Instruction Type:Patient Education Patient Instructions Indication:BMI 27.0-27.9,adult Start:09-Aug-2019 Instruction Type:Provider Instructions for Treatment How to access health informa tion online Indication:Non-smoker Start:14-Jul-2019 Instruction Type:Patient Education How to access health informa tion online - Detail Indication:Non-smoker Start:14-Jul-2019 Instruction Type:Patient Education Patient Instructions Indication:Non-smoker Start:14-Jul-2019 Instruction Type:Provider Instructions for Treatment [facility]; [facility] Work Phone: Instructions* Name Dates Details Patient Instructions Indication:Non-smoker Start:22-Jun-2021 Instruction Type:Provider Instructions for Treatment How to Access Health Informa tion Online using Patient Portal and [employer] Indication:Non-smoker Start:22-Jun-2021 Instruction Type:Patient Education Patient Instructions Indication:BMI 28.0-28.9,adult Start:17-May-2021 Instruction Type:Provider Instructions for Treatment How to Access Health Informa tion Online using Patient Portal and [employer] Indication:BMI 28.0-28.9,adult Start:17-May-2021 Instruction Type:Patient Education Patient Instructions Indication:BMI 27.0-27.9,adult Start:12-Feb-2021 Instruction Type:Provider Instructions for Treatment How to Access Health Informa tion Online using Patient Portal and [employer] Indication:BMI 27.0-27.9,adult Start:12-Feb-2021 Instruction Type:Patient Education How to Access Health Informa tion Online using Patient Portal and [employer] Indication:Non-smoker Start:03-Aug-2020 Instruction Type:Patient Education Patient Instructions Indication:Non-smoker Start:03-Aug-2020 Instruction Type:Provider Instructions for Treatment How to Access Health Informa tion Online using Patient Portal and [employer] Indication:Non-smoker Start:05-Jul-2020 Instruction Type:Patient Education Patient Instructions Indication:Non-smoker Start:05-Jul-2020 Instruction Type:Provider Instructions for Treatment How to Access Health Informa tion Online using Patient Portal and [employer]rd [employer] Apps Indication:Non-smoker Start:07-Jun-2020 Instruction Type:Patient Education Patient Instructions Indication:Non-smoker Start:07-Jun-2020 Instruction Type:Provider Instructions for Treatment Patient Instructions Indication:BMI 27.0-27.9,adult Start:15-Mar-2020 Instruction Type:Provider Instructions for Treatment How to Access Health Informa tion Online using Patient Portal and [employer]rd [employer] Apps Indication:BMI 27.0-27.9,adult Start:15-Mar-2020 Instruction Type:Patient Education Patient Instructions Indication:BMI 27.0-27.9,adult Start:16-Feb-2020 Instruction Type:Provider Instructions for Treatment How to Access Health Informa tion Online using Patient Portal and [employer]rd [employer] Apps Indication:BMI 27.0-27.9,adult Start:16-Feb-2020 Instruction Type:Patient Education Patient Instructions Indication:Non-smoker Start:15-Feb-2020 Instruction Type:Provider Instructions for Treatment How to Access Health Informa tion Online using Patient Portal and [employer]rd [employer] Apps Indication:Non-smoker Start:15-Feb-2020 Instruction Type:Patient Education How to access health informa tion online Indication:Non-smoker Start:26-Aug-2019 Instruction Type:Patient Education How to access health informa tion online - Detail Indication:Non-smoker Start:26-Aug-2019 Instruction Type:Patient Education Patient Instructions Indication:Non-smoker Start:26-Aug-2019 Instruction Type:Provider Instructions for Treatment How to access health informa tion online Indication:BMI 27.0-27.9,adult Start:09-Aug-2019 Instruction Type:Patient Education How to access health informa tion online - Detail Indication:BMI 27.0-27.9,adult Start:09-Aug-2019 Instruction Type:Patient Education Patient Instructions Indication:BMI 27.0-27.9,adult Start:09-Aug-2019 Instruction Type:Provider Instructions for Treatment How to access health informa tion online Indication:Non-smoker Start:14-Jul-2019 Instruction Type:Patient Education How to access health informa tion online - Detail Indication:Non-smoker Start:14-Jul-2019 Instruction Type:Patient Education Patient Instructions Indication:Non-smoker Start:14-Jul-2019 Instruction Type:Provider Instructions for Treatment [facility]; [facility] Work Phone: Instructions* Name Dates Details Patient Instructions Indication:Non-smoker Start:22-Jun-2021 Instruction Type:Provider Instructions for Treatment How to Access Health Informa tion Online using Patient Portal and [employer]rd [employer] Apps Indication:Non-smoker Start:22-Jun-2021 Instruction Type:Patient Education Patient Instructions Indication:BMI 28.0-28.9,adult Start:17-May-2021 Instruction Type:Provider Instructions for Treatment How to Access Health Informa tion Online using Patient Portal and [employer]rd [employer] Apps Indication:BMI 28.0-28.9,adult Start:17-May-2021 Instruction Type:Patient Education Patient Instructions Indication:BMI 27.0-27.9,adult Start:12-Feb-2021 Instruction Type:Provider Instructions for Treatment How to Access Health Informa tion Online using Patient Portal and [employer]rd [employer] Apps Indication:BMI 27.0-27.9,adult Start:12-Feb-2021 Instruction Type:Patient Education How to Access Health Informa tion Online using Patient Portal and [employer]rd [employer] Apps Indication:Non-smoker Start:03-Aug-2020 Instruction Type:Patient Education Patient Instructions Indication:Non-smoker Start:03-Aug-2020 Instruction Type:Provider Instructions for Treatment How to Access Health Informa tion Online using Patient Portal and [employer]rd [employer] Apps Indication:Non-smoker Start:05-Jul-2020 Instruction Type:Patient Education Patient Instructions Indication:Non-smoker Start:05-Jul-2020 Instruction Type:Provider Instructions for Treatment How to Access Health Informa tion Online using Patient Portal and [employer] Apps Indication:Non-smoker Start:07-Jun-2020 Instruction Type:Patient Education Patient Instructions Indication:Non-smoker Start:07-Jun-2020 Instruction Type:Provider Instructions for Treatment Patient Instructions Indication:BMI 27.0-27.9,adult Start:15-Mar-2020 Instruction Type:Provider Instructions for Treatment How to Access Health Informa tion Online using Patient Portal and [employer]rd [employer] Apps Indication:BMI 27.0-27.9,adult Start:15-Mar-2020 Instruction Type:Patient Education Patient Instructions Indication:BMI 27.0-27.9,adult Start:16-Feb-2020 Instruction Type:Provider Instructions for Treatment How to Access Health Informa tion Online using Patient Portal and [employer]rd [employer] Apps Indication:BMI 27.0-27.9,adult Start:16-Feb-2020 Instruction Type:Patient Education Patient Instructions Indication:Non-smoker Start:15-Feb-2020 Instruction Type:Provider Instructions for Treatment How to Access Health Informa tion Online using Patient Portal and [employer] Apps Indication:Non-smoker Start:15-Feb-2020 Instruction Type:Patient Education How to access health informa tion online Indication:Non-smoker Start:26-Aug-2019 Instruction Type:Patient Education How to access health informa tion online - Detail Indication:Non-smoker Start:26-Aug-2019 Instruction Type:Patient Education Patient Instructions Indication:Non-smoker Start:26-Aug-2019 Instruction Type:Provider Instructions for Treatment How to access health informa tion online Indication:BMI 27.0-27.9,adult Start:09-Aug-2019 Instruction Type:Patient Education How to access health informa tion online - Detail Indication:BMI 27.0-27.9,adult Start:09-Aug-2019 Instruction Type:Patient Education Patient Instructions Indication:BMI 27.0-27.9,adult Start:09-Aug-2019 Instruction Type:Provider Instructions for Treatment How to access health informa tion online Indication:Non-smoker Start:14-Jul-2019 Instruction Type:Patient Education How to access health informa tion online - Detail Indication:Non-smoker Start:14-Jul-2019 Instruction Type:Patient Education Patient Instructions Indication:Non-smoker Start:14-Jul-2019 Instruction Type:Provider Instructions for Treatment [facility]; [facility] Work Phone: Instructions* Name Dates Details Patient Instructions Indication:Non-smoker Start:22-Jun-2021 Instruction Type:Provider Instructions for Treatment How to Access Health Informa tion Online using Patient Portal and [employer]rd [employer] Apps Indication:Non-smoker Start:22-Jun-2021 Instruction Type:Patient Education Patient Instructions Indication:BMI 28.0-28.9,adult Start:17-May-2021 Instruction Type:Provider Instructions for Treatment How to Access Health Informa tion Online using Patient Portal and [employer] Apps Indication:BMI 28.0-28.9,adult Start:17-May-2021 Instruction Type:Patient Education Patient Instructions Indication:BMI 27.0-27.9,adult Start:12-Feb-2021 Instruction Type:Provider Instructions for Treatment How to Access Health Informa tion Online using Patient Portal and [employer] Apps Indication:BMI 27.0-27.9,adult Start:12-Feb-2021 Instruction Type:Patient Education How to Access Health Informa tion Online using Patient Portal and [employer] Apps Indication:Non-smoker Start:03-Aug-2020 Instruction Type:Patient Education Patient Instructions Indication:Non-smoker Start:03-Aug-2020 Instruction Type:Provider Instructions for Treatment How to Access Health Informa tion Online using Patient Portal and [employer] Apps Indication:Non-smoker Start:05-Jul-2020 Instruction Type:Patient Education Patient Instructions Indication:Non-smoker Start:05-Jul-2020 Instruction Type:Provider Instructions for Treatment How to Access Health Informa tion Online using Patient Portal and [employer] Apps Indication:Non-smoker Start:07-Jun-2020 Instruction Type:Patient Education Patient Instructions Indication:Non-smoker Start:07-Jun-2020 Instruction Type:Provider Instructions for Treatment Patient Instructions Indication:BMI 27.0-27.9,adult Start:15-Mar-2020 Instruction Type:Provider Instructions for Treatment How to Access Health Informa tion Online using Patient Portal and [employer]rd [employer] Apps Indication:BMI 27.0-27.9,adult Start:15-Mar-2020 Instruction Type:Patient Education Patient Instructions Indication:BMI 27.0-27.9,adult Start:16-Feb-2020 Instruction Type:Provider Instructions for Treatment How to Access Health Informa tion Online using Patient Portal and [employer] Apps Indication:BMI 27.0-27.9,adult Start:16-Feb-2020 Instruction Type:Patient Education Patient Instructions Indication:Non-smoker Start:15-Feb-2020 Instruction Type:Provider Instructions for Treatment How to Access Health Informa tion Online using Patient Portal and [employer] Apps Indication:Non-smoker Start:15-Feb-2020 Instruction Type:Patient Education How to access health informa tion online Indication:Non-smoker Start:26-Aug-2019 Instruction Type:Patient Education How to access health informa tion online - Detail Indication:Non-smoker Start:26-Aug-2019 Instruction Type:Patient Education Patient Instructions Indication:Non-smoker Start:26-Aug-2019 Instruction Type:Provider Instructions for Treatment How to access health informa tion online Indication:BMI 27.0-27.9,adult Start:09-Aug-2019 Instruction Type:Patient Education How to access health informa tion online - Detail Indication:BMI 27.0-27.9,adult Start:09-Aug-2019 Instruction Type:Patient Education Patient Instructions Indication:BMI 27.0-27.9,adult Start:09-Aug-2019 Instruction Type:Provider Instructions for Treatment How to access health informa tion online Indication:Non-smoker Start:14-Jul-2019 Instruction Type:Patient Education How to access health informa tion online - Detail Indication:Non-smoker Start:14-Jul-2019 Instruction Type:Patient Education Patient Instructions Indication:Non-smoker Start:14-Jul-2019 Instruction Type:Provider Instructions for Treatment [facility]; [facility] Work Phone: Instructions* Name Dates Details Patient Instructions Indication:Hypoglycemia Start:01-Aug-2021 Instruction Type:Provider Instructions for Treatment How to Access Health Informa tion Online using Patient Portal and [employer]rd [employer] Apps Indication:Hypoglycemia Start:01-Aug-2021 Instruction Type:Patient Education Patient Instructions Indication:Non-smoker Start:22-Jun-2021 Instruction Type:Provider Instructions for Treatment How to Access Health Informa tion Online using Patient Portal and [employer] Apps Indication:Non-smoker Start:22-Jun-2021 Instruction Type:Patient Education Patient Instructions Indication:BMI 28.0-28.9,adult Start:17-May-2021 Instruction Type:Provider Instructions for Treatment How to Access Health Informa tion Online using Patient Portal and [employer] Apps Indication:BMI 28.0-28.9,adult Start:17-May-2021 Instruction Type:Patient Education Patient Instructions Indication:BMI 27.0-27.9,adult Start:12-Feb-2021 Instruction Type:Provider Instructions for Treatment How to Access Health Informa tion Online using Patient Portal and [employer] Apps Indication:BMI 27.0-27.9,adult Start:12-Feb-2021 Instruction Type:Patient Education How to Access Health Informa tion Online using Patient Portal and [employer] Apps Indication:Non-smoker Start:03-Aug-2020 Instruction Type:Patient Education Patient Instructions Indication:Non-smoker Start:03-Aug-2020 Instruction Type:Provider Instructions for Treatment How to Access Health Informa tion Online using Patient Portal and [employer] Apps Indication:Non-smoker Start:05-Jul-2020 Instruction Type:Patient Education Patient Instructions Indication:Non-smoker Start:05-Jul-2020 Instruction Type:Provider Instructions for Treatment How to Access Health Informa tion Online using Patient Portal and [employer] Apps Indication:Non-smoker Start:07-Jun-2020 Instruction Type:Patient Education Patient Instructions Indication:Non-smoker Start:07-Jun-2020 Instruction Type:Provider Instructions for Treatment Patient Instructions Indication:BMI 27.0-27.9,adult Start:15-Mar-2020 Instruction Type:Provider Instructions for Treatment How to Access Health Informa tion Online using Patient Portal and [employer]rd [employer] Apps Indication:BMI 27.0-27.9,adult Start:15-Mar-2020 Instruction Type:Patient Education Patient Instructions Indication:BMI 27.0-27.9,adult Start:16-Feb-2020 Instruction Type:Provider Instructions for Treatment How to Access Health Informa tion Online using Patient Portal and [employer]rd [employer] Apps Indication:BMI 27.0-27.9,adult Start:16-Feb-2020 Instruction Type:Patient Education Patient Instructions Indication:Non-smoker Start:15-Feb-2020 Instruction Type:Provider Instructions for Treatment How to Access Health Informa tion Online using Patient Portal and [employer] Apps Indication:Non-smoker Start:15-Feb-2020 Instruction Type:Patient Education How to access health informa tion online Indication:Non-smoker Start:26-Aug-2019 Instruction Type:Patient Education How to access health informa tion online - Detail Indication:Non-smoker Start:26-Aug-2019 Instruction Type:Patient Education Patient Instructions Indication:Non-smoker Start:26-Aug-2019 Instruction Type:Provider Instructions for Treatment How to access health informa tion online Indication:BMI 27.0-27.9,adult Start:09-Aug-2019 Instruction Type:Patient Education How to access health informa tion online - Detail Indication:BMI 27.0-27.9,adult Start:09-Aug-2019 Instruction Type:Patient Education Patient Instructions Indication:BMI 27.0-27.9,adult Start:09-Aug-2019 Instruction Type:Provider Instructions for Treatment How to access health informa tion online Indication:Non-smoker Start:14-Jul-2019 Instruction Type:Patient Education How to access health informa tion online - Detail Indication:Non-smoker Start:14-Jul-2019 Instruction Type:Patient Education Patient Instructions Indication:Non-smoker Start:14-Jul-2019 Instruction Type:Provider Instructions for Treatment [facility]; [facility] Work Phone: Instructions* Name Dates Details Patient Instructions Indication:Hypoglycemia Start:01-Aug-2021 Instruction Type:Provider Instructions for Treatment How to Access Health Informa tion Online using Patient Portal and [employer]rd [employer] Apps Indication:Hypoglycemia Start:01-Aug-2021 Instruction Type:Patient Education Patient Instructions Indication:Non-smoker Start:22-Jun-2021 Instruction Type:Provider Instructions for Treatment How to Access Health Informa tion Online using Patient Portal and [employer]rd [employer] Apps Indication:Non-smoker Start:22-Jun-2021 Instruction Type:Patient Education Patient Instructions Indication:BMI 28.0-28.9,adult Start:17-May-2021 Instruction Type:Provider Instructions for Treatment How to Access Health Informa tion Online using Patient Portal and [employer] Apps Indication:BMI 28.0-28.9,adult Start:17-May-2021 Instruction Type:Patient Education Patient Instructions Indication:BMI 27.0-27.9,adult Start:12-Feb-2021 Instruction Type:Provider Instructions for Treatment How to Access Health Informa tion Online using Patient Portal and [employer]rd [employer] Apps Indication:BMI 27.0-27.9,adult Start:12-Feb-2021 Instruction Type:Patient Education How to Access Health Informa tion Online using Patient Portal and [employer]rd [employer] Apps Indication:Non-smoker Start:03-Aug-2020 Instruction Type:Patient Education Patient Instructions Indication:Non-smoker Start:03-Aug-2020 Instruction Type:Provider Instructions for Treatment How to Access Health Informa tion Online using Patient Portal and [employer] Apps Indication:Non-smoker Start:05-Jul-2020 Instruction Type:Patient Education Patient Instructions Indication:Non-smoker Start:05-Jul-2020 Instruction Type:Provider Instructions for Treatment How to Access Health Informa tion Online using Patient Portal and [employer] Apps Indication:Non-smoker Start:07-Jun-2020 Instruction Type:Patient Education Patient Instructions Indication:Non-smoker Start:07-Jun-2020 Instruction Type:Provider Instructions for Treatment Patient Instructions Indication:BMI 27.0-27.9,adult Start:15-Mar-2020 Instruction Type:Provider Instructions for Treatment How to Access Health Informa tion Online using Patient Portal and [employer]rd [employer] Apps Indication:BMI 27.0-27.9,adult Start:15-Mar-2020 Instruction Type:Patient Education Patient Instructions Indication:BMI 27.0-27.9,adult Start:16-Feb-2020 Instruction Type:Provider Instructions for Treatment How to Access Health Informa tion Online using Patient Portal and [employer]rd [employer] Apps Indication:BMI 27.0-27.9,adult Start:16-Feb-2020 Instruction Type:Patient Education Patient Instructions Indication:Non-smoker Start:15-Feb-2020 Instruction Type:Provider Instructions for Treatment How to Access Health Informa tion Online using Patient Portal and [employer] Apps Indication:Non-smoker Start:15-Feb-2020 Instruction Type:Patient Education How to access health informa tion online Indication:Non-smoker Start:26-Aug-2019 Instruction Type:Patient Education How to access health informa tion online - Detail Indication:Non-smoker Start:26-Aug-2019 Instruction Type:Patient Education Patient Instructions Indication:Non-smoker Start:26-Aug-2019 Instruction Type:Provider Instructions for Treatment How to access health informa tion online Indication:BMI 27.0-27.9,adult Start:09-Aug-2019 Instruction Type:Patient Education How to access health informa tion online - Detail Indication:BMI 27.0-27.9,adult Start:09-Aug-2019 Instruction Type:Patient Education Patient Instructions Indication:BMI 27.0-27.9,adult Start:09-Aug-2019 Instruction Type:Provider Instructions for Treatment How to access health informa tion online Indication:Non-smoker Start:14-Jul-2019 Instruction Type:Patient Education How to access health informa tion online - Detail Indication:Non-smoker Start:14-Jul-2019 Instruction Type:Patient Education Patient Instructions Indication:Non-smoker Start:14-Jul-2019 Instruction Type:Provider Instructions for Treatment [facility]; [facility] Work Phone: Instructions* Name Dates Details Patient Instructions Indication:Hypoglycemia Start:01-Aug-2021 Instruction Type:Provider Instructions for Treatment How to Access Health Informa tion Online using Patient Portal and [employer]rd [employer] Apps Indication:Hypoglycemia Start:01-Aug-2021 Instruction Type:Patient Education Patient Instructions Indication:Non-smoker Start:22-Jun-2021 Instruction Type:Provider Instructions for Treatment How to Access Health Informa tion Online using Patient Portal and [employer]rd [employer] Apps Indication:Non-smoker Start:22-Jun-2021 Instruction Type:Patient Education Patient Instructions Indication:BMI 28.0-28.9,adult Start:17-May-2021 Instruction Type:Provider Instructions for Treatment How to Access Health Informa tion Online using Patient Portal and [employer] Apps Indication:BMI 28.0-28.9,adult Start:17-May-2021 Instruction Type:Patient Education Patient Instructions Indication:BMI 27.0-27.9,adult Start:12-Feb-2021 Instruction Type:Provider Instructions for Treatment How to Access Health Informa tion Online using Patient Portal and [employer]rd [employer] Apps Indication:BMI 27.0-27.9,adult Start:12-Feb-2021 Instruction Type:Patient Education How to Access Health Informa tion Online using Patient Portal and [employer]rd [employer] Apps Indication:Non-smoker Start:03-Aug-2020 Instruction Type:Patient Education Patient Instructions Indication:Non-smoker Start:03-Aug-2020 Instruction Type:Provider Instructions for Treatment How to Access Health Informa tion Online using Patient Portal and [employer] Apps Indication:Non-smoker Start:05-Jul-2020 Instruction Type:Patient Education Patient Instructions Indication:Non-smoker Start:05-Jul-2020 Instruction Type:Provider Instructions for Treatment How to Access Health Informa tion Online using Patient Portal and [employer]rd [employer] Apps Indication:Non-smoker Start:07-Jun-2020 Instruction Type:Patient Education Patient Instructions Indication:Non-smoker Start:07-Jun-2020 Instruction Type:Provider Instructions for Treatment Patient Instructions Indication:BMI 27.0-27.9,adult Start:15-Mar-2020 Instruction Type:Provider Instructions for Treatment How to Access Health Informa tion Online using Patient Portal and [employer]rd [employer] Apps Indication:BMI 27.0-27.9,adult Start:15-Mar-2020 Instruction Type:Patient Education Patient Instructions Indication:BMI 27.0-27.9,adult Start:16-Feb-2020 Instruction Type:Provider Instructions for Treatment How to Access Health Informa tion Online using Patient Portal and [employer]rd [employer] Apps Indication:BMI 27.0-27.9,adult Start:16-Feb-2020 Instruction Type:Patient Education Patient Instructions Indication:Non-smoker Start:15-Feb-2020 Instruction Type:Provider Instructions for Treatment How to Access Health Informa tion Online using Patient Portal and [employer]rd [employer] Apps Indication:Non-smoker Start:15-Feb-2020 Instruction Type:Patient Education How to access health informa tion online Indication:Non-smoker Start:26-Aug-2019 Instruction Type:Patient Education How to access health informa tion online - Detail Indication:Non-smoker Start:26-Aug-2019 Instruction Type:Patient Education Patient Instructions Indication:Non-smoker Start:26-Aug-2019 Instruction Type:Provider Instructions for Treatment How to access health informa tion online Indication:BMI 27.0-27.9,adult Start:09-Aug-2019 Instruction Type:Patient Education How to access health informa tion online - Detail Indication:BMI 27.0-27.9,adult Start:09-Aug-2019 Instruction Type:Patient Education Patient Instructions Indication:BMI 27.0-27.9,adult Start:09-Aug-2019 Instruction Type:Provider Instructions for Treatment How to access health informa tion online Indication:Non-smoker Start:14-Jul-2019 Instruction Type:Patient Education How to access health informa tion online - Detail Indication:Non-smoker Start:14-Jul-2019 Instruction Type:Patient Education Patient Instructions Indication:Non-smoker Start:14-Jul-2019 Instruction Type:Provider Instructions for Treatment [facility]; [facility] Work Phone: Instructions* Name Dates Details Patient Instructions Indication:BMI 26.0-26.9,adult Start:28-Jan-2022 Instruction Type:Provider Instructions for Treatment How to Access Health Informa tion Online using Patient Portal and [employer]rd [employer] Apps Indication:BMI 26.0-26.9,adult Start:28-Jan-2022 Instruction Type:Patient Education Patient Instructions Indication:Hypoglycemia Start:01-Aug-2021 Instruction Type:Provider Instructions for Treatment How to Access Health Informa tion Online using Patient Portal and [employer]rd [employer] Apps Indication:Hypoglycemia Start:01-Aug-2021 Instruction Type:Patient Education Patient Instructions Indication:Non-smoker Start:22-Jun-2021 Instruction Type:Provider Instructions for Treatment How to Access Health Informa tion Online using Patient Portal and [employer] Apps Indication:Non-smoker Start:22-Jun-2021 Instruction Type:Patient Education Patient Instructions Indication:BMI 28.0-28.9,adult Start:17-May-2021 Instruction Type:Provider Instructions for Treatment How to Access Health Informa tion Online using Patient Portal and [employer] Apps Indication:BMI 28.0-28.9,adult Start:17-May-2021 Instruction Type:Patient Education Patient Instructions Indication:BMI 27.0-27.9,adult Start:12-Feb-2021 Instruction Type:Provider Instructions for Treatment How to Access Health Informa tion Online using Patient Portal and [employer] Apps Indication:BMI 27.0-27.9,adult Start:12-Feb-2021 Instruction Type:Patient Education How to Access Health Informa tion Online using Patient Portal and [employer] Apps Indication:Non-smoker Start:03-Aug-2020 Instruction Type:Patient Education Patient Instructions Indication:Non-smoker Start:03-Aug-2020 Instruction Type:Provider Instructions for Treatment How to Access Health Informa tion Online using Patient Portal and [employer] Indication:Non-smoker Start:05-Jul-2020 Instruction Type:Patient Education Patient Instructions Indication:Non-smoker Start:05-Jul-2020 Instruction Type:Provider Instructions for Treatment How to Access Health Informa tion Online using Patient Portal and [employer] Apps Indication:Non-smoker Start:07-Jun-2020 Instruction Type:Patient Education Patient Instructions Indication:Non-smoker Start:07-Jun-2020 Instruction Type:Provider Instructions for Treatment Patient Instructions Indication:BMI 27.0-27.9,adult Start:15-Mar-2020 Instruction Type:Provider Instructions for Treatment How to Access Health Informa tion Online using Patient Portal and [employer] Apps Indication:BMI 27.0-27.9,adult Start:15-Mar-2020 Instruction Type:Patient Education Patient Instructions Indication:BMI 27.0-27.9,adult Start:16-Feb-2020 Instruction Type:Provider Instructions for Treatment How to Access Health Informa tion Online using Patient Portal and [employer] Apps Indication:BMI 27.0-27.9,adult Start:16-Feb-2020 Instruction Type:Patient Education Patient Instructions Indication:Non-smoker Start:15-Feb-2020 Instruction Type:Provider Instructions for Treatment How to Access Health Informa tion Online using Patient Portal and [employer] Apps Indication:Non-smoker Start:15-Feb-2020 Instruction Type:Patient Education How to access health informa tion online Indication:Non-smoker Start:26-Aug-2019 Instruction Type:Patient Education How to access health informa tion online - Detail Indication:Non-smoker Start:26-Aug-2019 Instruction Type:Patient Education Patient Instructions Indication:Non-smoker Start:26-Aug-2019 Instruction Type:Provider Instructions for Treatment How to access health informa tion online Indication:BMI 27.0-27.9,adult Start:09-Aug-2019 Instruction Type:Patient Education How to access health informa tion online - Detail Indication:BMI 27.0-27.9,adult Start:09-Aug-2019 Instruction Type:Patient Education Patient Instructions Indication:BMI 27.0-27.9,adult Start:09-Aug-2019 Instruction Type:Provider Instructions for Treatment How to access health informa tion online Indication:Non-smoker Start:14-Jul-2019 Instruction Type:Patient Education How to access health informa tion online - Detail Indication:Non-smoker Start:14-Jul-2019 Instruction Type:Patient Education Patient Instructions Indication:Non-smoker Start:14-Jul-2019 Instruction Type:Provider Instructions for Treatment [facility]; [facility] Work Phone: Instructions* Name Dates Details Patient Instructions Indication:BMI 26.0-26.9,adult Start:28-Jan-2022 Instruction Type:Provider Instructions for Treatment How to Access Health Informa tion Online using Patient Portal and [employer] Apps Indication:BMI 26.0-26.9,adult Start:28-Jan-2022 Instruction Type:Patient Education Patient Instructions Indication:Hypoglycemia Start:01-Aug-2021 Instruction Type:Provider Instructions for Treatment How to Access Health Informa tion Online using Patient Portal and [employer] Apps Indication:Hypoglycemia Start:01-Aug-2021 Instruction Type:Patient Education Patient Instructions Indication:Non-smoker Start:22-Jun-2021 Instruction Type:Provider Instructions for Treatment How to Access Health Informa tion Online using Patient Portal and [employer] Apps Indication:Non-smoker Start:22-Jun-2021 Instruction Type:Patient Education Patient Instructions Indication:BMI 28.0-28.9,adult Start:17-May-2021 Instruction Type:Provider Instructions for Treatment How to Access Health Informa tion Online using Patient Portal and [employer] Indication:BMI 28.0-28.9,adult Start:17-May-2021 Instruction Type:Patient Education Patient Instructions Indication:BMI 27.0-27.9,adult Start:12-Feb-2021 Instruction Type:Provider Instructions for Treatment How to Access Health Informa tion Online using Patient Portal and [employer] Indication:BMI 27.0-27.9,adult Start:12-Feb-2021 Instruction Type:Patient Education How to Access Health Informa tion Online using Patient Portal and [employer] Apps Indication:Non-smoker Start:03-Aug-2020 Instruction Type:Patient Education Patient Instructions Indication:Non-smoker Start:03-Aug-2020 Instruction Type:Provider Instructions for Treatment How to Access Health Informa tion Online using Patient Portal and [employer] Apps Indication:Non-smoker Start:05-Jul-2020 Instruction Type:Patient Education Patient Instructions Indication:Non-smoker Start:05-Jul-2020 Instruction Type:Provider Instructions for Treatment How to Access Health Informa tion Online using Patient Portal and [employer] Apps Indication:Non-smoker Start:07-Jun-2020 Instruction Type:Patient Education Patient Instructions Indication:Non-smoker Start:07-Jun-2020 Instruction Type:Provider Instructions for Treatment Patient Instructions Indication:BMI 27.0-27.9,adult Start:15-Mar-2020 Instruction Type:Provider Instructions for Treatment How to Access Health Informa tion Online using Patient Portal and [employer] Apps Indication:BMI 27.0-27.9,adult Start:15-Mar-2020 Instruction Type:Patient Education Patient Instructions Indication:BMI 27.0-27.9,adult Start:16-Feb-2020 Instruction Type:Provider Instructions for Treatment How to Access Health Informa tion Online using Patient Portal and [employer] Apps Indication:BMI 27.0-27.9,adult Start:16-Feb-2020 Instruction Type:Patient Education Patient Instructions Indication:Non-smoker Start:15-Feb-2020 Instruction Type:Provider Instructions for Treatment How to Access Health Informa tion Online using Patient Portal and [employer] Apps Indication:Non-smoker Start:15-Feb-2020 Instruction Type:Patient Education How to access health informa tion online Indication:Non-smoker Start:26-Aug-2019 Instruction Type:Patient Education How to access health informa tion online - Detail Indication:Non-smoker Start:26-Aug-2019 Instruction Type:Patient Education Patient Instructions Indication:Non-smoker Start:26-Aug-2019 Instruction Type:Provider Instructions for Treatment How to access health informa tion online Indication:BMI 27.0-27.9,adult Start:09-Aug-2019 Instruction Type:Patient Education How to access health informa tion online - Detail Indication:BMI 27.0-27.9,adult Start:09-Aug-2019 Instruction Type:Patient Education Patient Instructions Indication:BMI 27.0-27.9,adult Start:09-Aug-2019 Instruction Type:Provider Instructions for Treatment How to access health informa tion online Indication:Non-smoker Start:14-Jul-2019 Instruction Type:Patient Education How to access health informa tion online - Detail Indication:Non-smoker Start:14-Jul-2019 Instruction Type:Patient Education Patient Instructions Indication:Non-smoker Start:14-Jul-2019 Instruction Type:Provider Instructions for Treatment [facility]; [facility] Work Phone: Instructions* Name Dates Details Patient Instructions Indication:BMI 26.0-26.9,adult Start:28-Jan-2022 Instruction Type:Provider Instructions for Treatment How to Access Health Informa tion Online using Patient Portal and [employer] Apps Indication:BMI 26.0-26.9,adult Start:28-Jan-2022 Instruction Type:Patient Education Patient Instructions Indication:Hypoglycemia Start:01-Aug-2021 Instruction Type:Provider Instructions for Treatment How to Access Health Informa tion Online using Patient Portal and [employer] Apps Indication:Hypoglycemia Start:01-Aug-2021 Instruction Type:Patient Education Patient Instructions Indication:Non-smoker Start:22-Jun-2021 Instruction Type:Provider Instructions for Treatment How to Access Health Informa tion Online using Patient Portal and [employer] Apps Indication:Non-smoker Start:22-Jun-2021 Instruction Type:Patient Education Patient Instructions Indication:BMI 28.0-28.9,adult Start:17-May-2021 Instruction Type:Provider Instructions for Treatment How to Access Health Informa tion Online using Patient Portal and [employer] Indication:BMI 28.0-28.9,adult Start:17-May-2021 Instruction Type:Patient Education Patient Instructions Indication:BMI 27.0-27.9,adult Start:12-Feb-2021 Instruction Type:Provider Instructions for Treatment How to Access Health Informa tion Online using Patient Portal and [employer] Indication:BMI 27.0-27.9,adult Start:12-Feb-2021 Instruction Type:Patient Education How to Access Health Informa tion Online using Patient Portal and [employer] Apps Indication:Non-smoker Start:03-Aug-2020 Instruction Type:Patient Education Patient Instructions Indication:Non-smoker Start:03-Aug-2020 Instruction Type:Provider Instructions for Treatment How to Access Health Informa tion Online using Patient Portal and [employer] Apps Indication:Non-smoker Start:05-Jul-2020 Instruction Type:Patient Education Patient Instructions Indication:Non-smoker Start:05-Jul-2020 Instruction Type:Provider Instructions for Treatment How to Access Health Informa tion Online using Patient Portal and [employer] Apps Indication:Non-smoker Start:07-Jun-2020 Instruction Type:Patient Education Patient Instructions Indication:Non-smoker Start:07-Jun-2020 Instruction Type:Provider Instructions for Treatment Patient Instructions Indication:BMI 27.0-27.9,adult Start:15-Mar-2020 Instruction Type:Provider Instructions for Treatment How to Access Health Informa tion Online using Patient Portal and [employer] Apps Indication:BMI 27.0-27.9,adult Start:15-Mar-2020 Instruction Type:Patient Education Patient Instructions Indication:BMI 27.0-27.9,adult Start:16-Feb-2020 Instruction Type:Provider Instructions for Treatment How to Access Health Informa tion Online using Patient Portal and [employer] Apps Indication:BMI 27.0-27.9,adult Start:16-Feb-2020 Instruction Type:Patient Education Patient Instructions Indication:Non-smoker Start:15-Feb-2020 Instruction Type:Provider Instructions for Treatment How to Access Health Informa tion Online using Patient Portal and [employer] Apps Indication:Non-smoker Start:15-Feb-2020 Instruction Type:Patient Education How to access health informa tion online Indication:Non-smoker Start:26-Aug-2019 Instruction Type:Patient Education How to access health informa tion online - Detail Indication:Non-smoker Start:26-Aug-2019 Instruction Type:Patient Education Patient Instructions Indication:Non-smoker Start:26-Aug-2019 Instruction Type:Provider Instructions for Treatment How to access health informa tion online Indication:BMI 27.0-27.9,adult Start:09-Aug-2019 Instruction Type:Patient Education How to access health informa tion online - Detail Indication:BMI 27.0-27.9,adult Start:09-Aug-2019 Instruction Type:Patient Education Patient Instructions Indication:BMI 27.0-27.9,adult Start:09-Aug-2019 Instruction Type:Provider Instructions for Treatment How to access health informa tion online Indication:Non-smoker Start:14-Jul-2019 Instruction Type:Patient Education How to access health informa tion online - Detail Indication:Non-smoker Start:14-Jul-2019 Instruction Type:Patient Education Patient Instructions Indication:Non-smoker Start:14-Jul-2019 Instruction Type:Provider Instructions for Treatment [facility]; [facility] Work Phone: Instructions* Name Dates Details Patient Instructions Indication:BMI 26.0-26.9,adult Start:28-Jan-2022 Instruction Type:Provider Instructions for Treatment How to Access Health Informa tion Online using Patient Portal and [employer] Apps Indication:BMI 26.0-26.9,adult Start:28-Jan-2022 Instruction Type:Patient Education Patient Instructions Indication:Hypoglycemia Start:01-Aug-2021 Instruction Type:Provider Instructions for Treatment How to Access Health Informa tion Online using Patient Portal and [employer] Apps Indication:Hypoglycemia Start:01-Aug-2021 Instruction Type:Patient Education Patient Instructions Indication:Non-smoker Start:22-Jun-2021 Instruction Type:Provider Instructions for Treatment How to Access Health Informa tion Online using Patient Portal and [employer] Apps Indication:Non-smoker Start:22-Jun-2021 Instruction Type:Patient Education Patient Instructions Indication:BMI 28.0-28.9,adult Start:17-May-2021 Instruction Type:Provider Instructions for Treatment How to Access Health Informa tion Online using Patient Portal and [employer] Apps Indication:BMI 28.0-28.9,adult Start:17-May-2021 Instruction Type:Patient Education Patient Instructions Indication:BMI 27.0-27.9,adult Start:12-Feb-2021 Instruction Type:Provider Instructions for Treatment How to Access Health Informa tion Online using Patient Portal and [employer] Indication:BMI 27.0-27.9,adult Start:12-Feb-2021 Instruction Type:Patient Education How to Access Health Informa tion Online using Patient Portal and [employer] Apps Indication:Non-smoker Start:03-Aug-2020 Instruction Type:Patient Education Patient Instructions Indication:Non-smoker Start:03-Aug-2020 Instruction Type:Provider Instructions for Treatment How to Access Health Informa tion Online using Patient Portal and [employer] Apps Indication:Non-smoker Start:05-Jul-2020 Instruction Type:Patient Education Patient Instructions Indication:Non-smoker Start:05-Jul-2020 Instruction Type:Provider Instructions for Treatment How to Access Health Informa tion Online using Patient Portal and [employer] Apps Indication:Non-smoker Start:07-Jun-2020 Instruction Type:Patient Education Patient Instructions Indication:Non-smoker Start:07-Jun-2020 Instruction Type:Provider Instructions for Treatment Patient Instructions Indication:BMI 27.0-27.9,adult Start:15-Mar-2020 Instruction Type:Provider Instructions for Treatment How to Access Health Informa tion Online using Patient Portal and [employer] Apps Indication:BMI 27.0-27.9,adult Start:15-Mar-2020 Instruction Type:Patient Education Patient Instructions Indication:BMI 27.0-27.9,adult Start:16-Feb-2020 Instruction Type:Provider Instructions for Treatment How to Access Health Informa tion Online using Patient Portal and [employer] Apps Indication:BMI 27.0-27.9,adult Start:16-Feb-2020 Instruction Type:Patient Education Patient Instructions Indication:Non-smoker Start:15-Feb-2020 Instruction Type:Provider Instructions for Treatment How to Access Health Informa tion Online using Patient Portal and [employer] Apps Indication:Non-smoker Start:15-Feb-2020 Instruction Type:Patient Education How to access health informa tion online Indication:Non-smoker Start:26-Aug-2019 Instruction Type:Patient Education How to access health informa tion online - Detail Indication:Non-smoker Start:26-Aug-2019 Instruction Type:Patient Education Patient Instructions Indication:Non-smoker Start:26-Aug-2019 Instruction Type:Provider Instructions for Treatment How to access health informa tion online Indication:BMI 27.0-27.9,adult Start:09-Aug-2019 Instruction Type:Patient Education How to access health informa tion online - Detail Indication:BMI 27.0-27.9,adult Start:09-Aug-2019 Instruction Type:Patient Education Patient Instructions Indication:BMI 27.0-27.9,adult Start:09-Aug-2019 Instruction Type:Provider Instructions for Treatment How to access health informa tion online Indication:Non-smoker Start:14-Jul-2019 Instruction Type:Patient Education How to access health informa tion online - Detail Indication:Non-smoker Start:14-Jul-2019 Instruction Type:Patient Education Patient Instructions Indication:Non-smoker Start:14-Jul-2019 Instruction Type:Provider Instructions for Treatment [facility]; [facility] Work Phone: Instructions* Name Dates Details How to Access Health Informa tion Online using Patient Portal and [employer] Apps Indication:Non-smoker Start:01-Aug-2022 Instruction Type:Patient Education Patient Instructions Indication:Non-smoker Start:01-Aug-2022 Instruction Type:Provider Instructions for Treatment Patient Instructions Indication:BMI 26.0-26.9,adult Start:28-Jan-2022 Instruction Type:Provider Instructions for Treatment How to Access Health Informa tion Online using Patient Portal and [employer] Apps Indication:BMI 26.0-26.9,adult Start:28-Jan-2022 Instruction Type:Patient Education Patient Instructions Indication:Hypoglycemia Start:01-Aug-2021 Instruction Type:Provider Instructions for Treatment How to Access Health Informa tion Online using Patient Portal and [employer] Apps Indication:Hypoglycemia Start:01-Aug-2021 Instruction Type:Patient Education Patient Instructions Indication:Non-smoker Start:22-Jun-2021 Instruction Type:Provider Instructions for Treatment How to Access Health Informa tion Online using Patient Portal and [employer] Apps Indication:Non-smoker Start:22-Jun-2021 Instruction Type:Patient Education Patient Instructions Indication:BMI 28.0-28.9,adult Start:17-May-2021 Instruction Type:Provider Instructions for Treatment How to Access Health Informa tion Online using Patient Portal and [employer] Apps Indication:BMI 28.0-28.9,adult Start:17-May-2021 Instruction Type:Patient Education Patient Instructions Indication:BMI 27.0-27.9,adult Start:12-Feb-2021 Instruction Type:Provider Instructions for Treatment How to Access Health Informa tion Online using Patient Portal and [employer] Indication:BMI 27.0-27.9,adult Start:12-Feb-2021 Instruction Type:Patient Education How to Access Health Informa tion Online using Patient Portal and [employer] Apps Indication:Non-smoker Start:03-Aug-2020 Instruction Type:Patient Education Patient Instructions Indication:Non-smoker Start:03-Aug-2020 Instruction Type:Provider Instructions for Treatment How to Access Health Informa tion Online using Patient Portal and [employer] Apps Indication:Non-smoker Start:05-Jul-2020 Instruction Type:Patient Education Patient Instructions Indication:Non-smoker Start:05-Jul-2020 Instruction Type:Provider Instructions for Treatment How to Access Health Informa tion Online using Patient Portal and [employer] Indication:Non-smoker Start:07-Jun-2020 Instruction Type:Patient Education Patient Instructions Indication:Non-smoker Start:07-Jun-2020 Instruction Type:Provider Instructions for Treatment Patient Instructions Indication:BMI 27.0-27.9,adult Start:15-Mar-2020 Instruction Type:Provider Instructions for Treatment How to Access Health Informa tion Online using Patient Portal and [employer] Apps Indication:BMI 27.0-27.9,adult Start:15-Mar-2020 Instruction Type:Patient Education Patient Instructions Indication:BMI 27.0-27.9,adult Start:16-Feb-2020 Instruction Type:Provider Instructions for Treatment How to Access Health Informa tion Online using Patient Portal and [employer] Apps Indication:BMI 27.0-27.9,adult Start:16-Feb-2020 Instruction Type:Patient Education Patient Instructions Indication:Non-smoker Start:15-Feb-2020 Instruction Type:Provider Instructions for Treatment How to Access Health Informa tion Online using Patient Portal and [employer] Indication:Non-smoker Start:15-Feb-2020 Instruction Type:Patient Education How to access health informa tion online Indication:Non-smoker Start:26-Aug-2019 Instruction Type:Patient Education How to access health informa tion online - Detail Indication:Non-smoker Start:26-Aug-2019 Instruction Type:Patient Education Patient Instructions Indication:Non-smoker Start:26-Aug-2019 Instruction Type:Provider Instructions for Treatment How to access health informa tion online Indication:BMI 27.0-27.9,adult Start:09-Aug-2019 Instruction Type:Patient Education How to access health informa tion online - Detail Indication:BMI 27.0-27.9,adult Start:09-Aug-2019 Instruction Type:Patient Education Patient Instructions Indication:BMI 27.0-27.9,adult Start:09-Aug-2019 Instruction Type:Provider Instructions for Treatment How to access health informa tion online Indication:Non-smoker Start:14-Jul-2019 Instruction Type:Patient Education How to access health informa tion online - Detail Indication:Non-smoker Start:14-Jul-2019 Instruction Type:Patient Education Patient Instructions Indication:Non-smoker Start:14-Jul-2019 Instruction Type:Provider Instructions for Treatment [facility]; [facility] Work Phone: Instructions* Name Dates Details How to Access Health Informa tion Online using Patient Portal and [employer] Indication:Non-smoker Start:11-Sep-2022 Instruction Type:Patient Education Patient Instructions Indication:Non-smoker Start:11-Sep-2022 Instruction Type:Provider Instructions for Treatment How to Access Health Informa tion Online using Patient Portal and [employer] Apps Indication:Non-smoker Start:01-Aug-2022 Instruction Type:Patient Education Patient Instructions Indication:Non-smoker Start:01-Aug-2022 Instruction Type:Provider Instructions for Treatment Patient Instructions Indication:BMI 26.0-26.9,adult Start:28-Jan-2022 Instruction Type:Provider Instructions for Treatment How to Access Health Informa tion Online using Patient Portal and [employer] Indication:BMI 26.0-26.9,adult Start:28-Jan-2022 Instruction Type:Patient Education Patient Instructions Indication:Hypoglycemia Start:01-Aug-2021 Instruction Type:Provider Instructions for Treatment How to Access Health Informa tion Online using Patient Portal and [employer] Indication:Hypoglycemia Start:01-Aug-2021 Instruction Type:Patient Education Patient Instructions Indication:Non-smoker Start:22-Jun-2021 Instruction Type:Provider Instructions for Treatment How to Access Health Informa tion Online using Patient Portal and [employer] Indication:Non-smoker Start:22-Jun-2021 Instruction Type:Patient Education Patient Instructions Indication:BMI 28.0-28.9,adult Start:17-May-2021 Instruction Type:Provider Instructions for Treatment How to Access Health Informa tion Online using Patient Portal and [employer] Indication:BMI 28.0-28.9,adult Start:17-May-2021 Instruction Type:Patient Education Patient Instructions Indication:BMI 27.0-27.9,adult Start:12-Feb-2021 Instruction Type:Provider Instructions for Treatment How to Access Health Informa tion Online using Patient Portal and [employer] Indication:BMI 27.0-27.9,adult Start:12-Feb-2021 Instruction Type:Patient Education How to Access Health Informa tion Online using Patient Portal and [employer] Indication:Non-smoker Start:03-Aug-2020 Instruction Type:Patient Education Patient Instructions Indication:Non-smoker Start:03-Aug-2020 Instruction Type:Provider Instructions for Treatment How to Access Health Informa tion Online using Patient Portal and [employer] Indication:Non-smoker Start:05-Jul-2020 Instruction Type:Patient Education Patient Instructions Indication:Non-smoker Start:05-Jul-2020 Instruction Type:Provider Instructions for Treatment How to Access Health Informa tion Online using Patient Portal and [employer] Indication:Non-smoker Start:07-Jun-2020 Instruction Type:Patient Education Patient Instructions Indication:Non-smoker Start:07-Jun-2020 Instruction Type:Provider Instructions for Treatment Patient Instructions Indication:BMI 27.0-27.9,adult Start:15-Mar-2020 Instruction Type:Provider Instructions for Treatment How to Access Health Informa tion Online using Patient Portal and [employer] Indication:BMI 27.0-27.9,adult Start:15-Mar-2020 Instruction Type:Patient Education Patient Instructions Indication:BMI 27.0-27.9,adult Start:16-Feb-2020 Instruction Type:Provider Instructions for Treatment How to Access Health Informa tion Online using Patient Portal and [employer] Indication:BMI 27.0-27.9,adult Start:16-Feb-2020 Instruction Type:Patient Education Patient Instructions Indication:Non-smoker Start:15-Feb-2020 Instruction Type:Provider Instructions for Treatment How to Access Health Informa tion Online using Patient Portal and [employer]rd [employer] Apps Indication:Non-smoker Start:15-Feb-2020 Instruction Type:Patient Education How to access health informa tion online Indication:Non-smoker Start:26-Aug-2019 Instruction Type:Patient Education How to access health informa tion online - Detail Indication:Non-smoker Start:26-Aug-2019 Instruction Type:Patient Education Patient Instructions Indication:Non-smoker Start:26-Aug-2019 Instruction Type:Provider Instructions for Treatment How to access health informa tion online Indication:BMI 27.0-27.9,adult Start:09-Aug-2019 Instruction Type:Patient Education How to access health informa tion online - Detail Indication:BMI 27.0-27.9,adult Start:09-Aug-2019 Instruction Type:Patient Education Patient Instructions Indication:BMI 27.0-27.9,adult Start:09-Aug-2019 Instruction Type:Provider Instructions for Treatment How to access health informa tion online Indication:Non-smoker Start:14-Jul-2019 Instruction Type:Patient Education How to access health informa tion online - Detail Indication:Non-smoker Start:14-Jul-2019 Instruction Type:Patient Education Patient Instructions Indication:Non-smoker Start:14-Jul-2019 Instruction Type:Provider Instructions for Treatment [facility]; [facility] Work Phone: Summary Purpose Family History No Family History Records FoundNo Family History Records FoundNo Family History Records Found Advance Directives Name Dates Details Immunization Registry [place] - Effective on 08/26/2019. Expiration date unspecified Effective:26-Aug-2019 Name Dates Details Immunization Registry [place] - Effective on 08/26/2019. Expiration date unspecified Effective:26-Aug-2019 Name Dates Details Immunization Registry [place] - Effective on 08/26/2019. Expiration date unspecified Effective:26-Aug-2019 Name Dates Details Immunization Registry [place] - Effective on 08/26/2019. Expiration date unspecified Effective:26-Aug-2019 Name Dates Details Immunization Registry [place] - Effective on 08/26/2019. Expiration date unspecified Effective:26-Aug-2019 Name Dates Details Immunization Registry [place] - Effective on 08/26/2019. Expiration date unspecified Effective:26-Aug-2019 Name Dates Details Immunization Registry [place] - Effective on 08/26/2019. Expiration date unspecified Effective:26-Aug-2019 Name Dates Details Immunization Registry [place] - Effective on 08/26/2019. Expiration date unspecified Effective:26-Aug-2019 Name Dates Details Immunization Registry [place] - Effective on 08/26/2019. Expiration date unspecified Effective:26-Aug-2019 Name Dates Details Immunization Registry [place] - Effective on 08/26/2019. Expiration date unspecified Effective:26-Aug-2019 Name Dates Details Immunization Registry [place] - Effective on 08/26/2019. Expiration date unspecified Effective:26-Aug-2019 Name Dates Details Immunization Registry [place] - Effective on 08/26/2019. Expiration date unspecified Effective:26-Aug-2019 Name Dates Details Immunization Registry [place] - Effective on 08/26/2019. Expiration date unspecified Effective:26-Aug-2019 Name Dates Details Immunization Registry [place] - Effective on 08/26/2019. Expiration date unspecified Effective:26-Aug-2019 Name Dates Details Immunization Registry [place] - Effective on 08/26/2019. Expiration date unspecified Effective:26-Aug-2019 Name Dates Details Immunization Registry [place] - Effective on 08/26/2019. Expiration date unspecified Effective:26-Aug-2019 Name Dates Details Immunization Registry [place] - Effective on 08/26/2019. Expiration date unspecified Effective:26-Aug-2019 Name Dates Details Immunization Registry [place] - Effective on 08/26/2019. Expiration date unspecified Effective:26-Aug-2019 Name Dates Details Immunization Registry [place] - Effective on 08/26/2019. Expiration date unspecified Effective:26-Aug-2019 Name Dates Details Immunization Registry [place] - Effective on 08/26/2019. Expiration date unspecified Effective:26-Aug-2019 Name Dates Details Immunization Registry [place] - Effective on 08/26/2019. Expiration date unspecified Effective:26-Aug-2019 Name Dates Details Immunization Registry [place] - Effective on 08/26/2019. Expiration date unspecified Effective:26-Aug-2019 Name Dates Details Immunization Registry [place] - Effective on 08/01/2021. Expiration date unspecified Effective:01-Aug-2021 Name Dates Details Immunization Registry [place] - Effective on 08/01/2021. Expiration date unspecified Effective:01-Aug-2021 Name Dates Details Immunization Registry [place] - Effective on 08/01/2021. Expiration date unspecified Effective:01-Aug-2021 Name Dates Details Immunization Registry [place] - Effective on 08/01/2021. Expiration date unspecified Effective:01-Aug-2021 Name Dates Details Immunization Registry [place] - Effective on 08/01/2021. Expiration date unspecified Effective:01-Aug-2021 Name Dates Details Immunization Registry [place] - Effective on 08/01/2021. Expiration date unspecified Effective:01-Aug-2021 Name Dates Details Immunization Registry [place] - Effective on 08/01/2021. Expiration date unspecified Effective:01-Aug-2021 Instructions Name Dates Details How to access health informa tion online Indication:BMI 27.0-27.9,adult Start:09-Aug-2019 Instruction Type:Patient Education How to access health informa tion online - Detail Indication:BMI 27.0-27.9,adult Start:09-Aug-2019 Instruction Type:Patient Education Patient Instructions Indication:BMI 27.0-27.9,adult Start:09-Aug-2019 Instruction Type:Provider Instructions for Treatment How to access health informa tion online Indication:Non-smoker Start:14-Jul-2019 Instruction Type:Patient Education How to access health informa tion online - Detail Indication:Non-smoker Start:14-Jul-2019 Instruction Type:Patient Education Patient Instructions Indication:Non-smoker Start:14-Jul-2019 Instruction Type:Provider Instructions for Treatment Name Dates Details How to access health informa tion online Indication:Non-smoker Start:26-Aug-2019 Instruction Type:Patient Education How to access health informa tion online - Detail Indication:Non-smoker Start:26-Aug-2019 Instruction Type:Patient Education Patient Instructions Indication:Non-smoker Start:26-Aug-2019 Instruction Type:Provider Instructions for Treatment How to access health informa tion online Indication:BMI 27.0-27.9,adult Start:09-Aug-2019 Instruction Type:Patient Education How to access health informa tion online - Detail Indication:BMI 27.0-27.9,adult Start:09-Aug-2019 Instruction Type:Patient Education Patient Instructions Indication:BMI 27.0-27.9,adult Start:09-Aug-2019 Instruction Type:Provider Instructions for Treatment How to access health informa tion online Indication:Non-smoker Start:14-Jul-2019 Instruction Type:Patient Education How to access health informa tion online - Detail Indication:Non-smoker Start:14-Jul-2019 Instruction Type:Patient Education Patient Instructions Indication:Non-smoker Start:14-Jul-2019 Instruction Type:Provider Instructions for Treatment Name Dates Details How to access health informa tion online Indication:Non-smoker Start:26-Aug-2019 Instruction Type:Patient Education How to access health informa tion online - Detail Indication:Non-smoker Start:26-Aug-2019 Instruction Type:Patient Education Patient Instructions Indication:Non-smoker Start:26-Aug-2019 Instruction Type:Provider Instructions for Treatment How to access health informa tion online Indication:BMI 27.0-27.9,adult Start:09-Aug-2019 Instruction Type:Patient Education How to access health informa tion online - Detail Indication:BMI 27.0-27.9,adult Start:09-Aug-2019 Instruction Type:Patient Education Patient Instructions Indication:BMI 27.0-27.9,adult Start:09-Aug-2019 Instruction Type:Provider Instructions for Treatment How to access health informa tion online Indication:Non-smoker Start:14-Jul-2019 Instruction Type:Patient Education How to access health informa tion online - Detail Indication:Non-smoker Start:14-Jul-2019 Instruction Type:Patient Education Patient Instructions Indication:Non-smoker Start:14-Jul-2019 Instruction Type:Provider Instructions for Treatment Name Dates Details Patient Instructions Indication:BMI 27.0-27.9,adult Start:16-Feb-2020 Instruction Type:Provider Instructions for Treatment How to Access Health Informa tion Online using Patient Portal and [employer]rd [employer] Apps Indication:BMI 27.0-27.9,adult Start:16-Feb-2020 Instruction Type:Patient Education Patient Instructions Indication:Non-smoker Start:15-Feb-2020 Instruction Type:Provider Instructions for Treatment How to Access Health Informa tion Online using Patient Portal and [employer]rd [employer] Apps Indication:Non-smoker Start:15-Feb-2020 Instruction Type:Patient Education How to access health informa tion online Indication:Non-smoker Start:26-Aug-2019 Instruction Type:Patient Education How to access health informa tion online - Detail Indication:Non-smoker Start:26-Aug-2019 Instruction Type:Patient Education Patient Instructions Indication:Non-smoker Start:26-Aug-2019 Instruction Type:Provider Instructions for Treatment How to access health informa tion online Indication:BMI 27.0-27.9,adult Start:09-Aug-2019 Instruction Type:Patient Education How to access health informa tion online - Detail Indication:BMI 27.0-27.9,adult Start:09-Aug-2019 Instruction Type:Patient Education Patient Instructions Indication:BMI 27.0-27.9,adult Start:09-Aug-2019 Instruction Type:Provider Instructions for Treatment How to access health informa tion online Indication:Non-smoker Start:14-Jul-2019 Instruction Type:Patient Education How to access health informa tion online - Detail Indication:Non-smoker Start:14-Jul-2019 Instruction Type:Patient Education Patient Instructions Indication:Non-smoker Start:14-Jul-2019 Instruction Type:Provider Instructions for Treatment Name Dates Details Patient Instructions Indication:BMI 27.0-27.9,adult Start:15-Mar-2020 Instruction Type:Provider Instructions for Treatment How to Access Health Informa tion Online using Patient Portal and [employer]rd [employer] Apps Indication:BMI 27.0-27.9,adult Start:15-Mar-2020 Instruction Type:Patient Education Patient Instructions Indication:BMI 27.0-27.9,adult Start:16-Feb-2020 Instruction Type:Provider Instructions for Treatment How to Access Health Informa tion Online using Patient Portal and [employer]rd [employer] Apps Indication:BMI 27.0-27.9,adult Start:16-Feb-2020 Instruction Type:Patient Education Patient Instructions Indication:Non-smoker Start:15-Feb-2020 Instruction Type:Provider Instructions for Treatment How to Access Health Informa tion Online using Patient Portal and [employer]rd [employer] Apps Indication:Non-smoker Start:15-Feb-2020 Instruction Type:Patient Education How to access health informa tion online Indication:Non-smoker Start:26-Aug-2019 Instruction Type:Patient Education How to access health informa tion online - Detail Indication:Non-smoker Start:26-Aug-2019 Instruction Type:Patient Education Patient Instructions Indication:Non-smoker Start:26-Aug-2019 Instruction Type:Provider Instructions for Treatment How to access health informa tion online Indication:BMI 27.0-27.9,adult Start:09-Aug-2019 Instruction Type:Patient Education How to access health informa tion online - Detail Indication:BMI 27.0-27.9,adult Start:09-Aug-2019 Instruction Type:Patient Education Patient Instructions Indication:BMI 27.0-27.9,adult Start:09-Aug-2019 Instruction Type:Provider Instructions for Treatment How to access health informa tion online Indication:Non-smoker Start:14-Jul-2019 Instruction Type:Patient Education How to access health informa tion online - Detail Indication:Non-smoker Start:14-Jul-2019 Instruction Type:Patient Education Patient Instructions Indication:Non-smoker Start:14-Jul-2019 Instruction Type:Provider Instructions for Treatment Name Dates Details Patient Instructions Indication:BMI 27.0-27.9,adult Start:15-Mar-2020 Instruction Type:Provider Instructions for Treatment How to Access Health Informa tion Online using Patient Portal and 3rd [employer] Apps Indication:BMI 27.0-27.9,adult Start:15-Mar-2020 Instruction Type:Patient Education Patient Instructions Indication:BMI 27.0-27.9,adult Start:16-Feb-2020 Instruction Type:Provider Instructions for Treatment How to Access Health Informa tion Online using Patient Portal and 3rd [employer] Apps Indication:BMI 27.0-27.9,adult Start:16-Feb-2020 Instruction Type:Patient Education Patient Instructions Indication:Non-smoker Start:15-Feb-2020 Instruction Type:Provider Instructions for Treatment How to Access Health Informa tion Online using Patient Portal and [employer]rd [employer] Apps Indication:Non-smoker Start:15-Feb-2020 Instruction Type:Patient Education How to access health informa tion online Indication:Non-smoker Start:26-Aug-2019 Instruction Type:Patient Education How to access health informa tion online - Detail Indication:Non-smoker Start:26-Aug-2019 Instruction Type:Patient Education Patient Instructions Indication:Non-smoker Start:26-Aug-2019 Instruction Type:Provider Instructions for Treatment How to access health informa tion online Indication:BMI 27.0-27.9,adult Start:09-Aug-2019 Instruction Type:Patient Education How to access health informa tion online - Detail Indication:BMI 27.0-27.9,adult Start:09-Aug-2019 Instruction Type:Patient Education Patient Instructions Indication:BMI 27.0-27.9,adult Start:09-Aug-2019 Instruction Type:Provider Instructions for Treatment How to access health informa tion online Indication:Non-smoker Start:14-Jul-2019 Instruction Type:Patient Education How to access health informa tion online - Detail Indication:Non-smoker Start:14-Jul-2019 Instruction Type:Patient Education Patient Instructions Indication:Non-smoker Start:14-Jul-2019 Instruction Type:Provider Instructions for Treatment Name Dates Details Patient Instructions Indication:Non-smoker Start:15-Feb-2020 Instruction Type:Provider Instructions for Treatment How to Access Health Informa tion Online using Patient Portal and [employer] Apps Indication:Non-smoker Start:15-Feb-2020 Instruction Type:Patient Education How to access health informa tion online Indication:Non-smoker Start:26-Aug-2019 Instruction Type:Patient Education How to access health informa tion online - Detail Indication:Non-smoker Start:26-Aug-2019 Instruction Type:Patient Education Patient Instructions Indication:Non-smoker Start:26-Aug-2019 Instruction Type:Provider Instructions for Treatment How to access health informa tion online Indication:BMI 27.0-27.9,adult Start:09-Aug-2019 Instruction Type:Patient Education How to access health informa tion online - Detail Indication:BMI 27.0-27.9,adult Start:09-Aug-2019 Instruction Type:Patient Education Patient Instructions Indication:BMI 27.0-27.9,adult Start:09-Aug-2019 Instruction Type:Provider Instructions for Treatment How to access health informa tion online Indication:Non-smoker Start:14-Jul-2019 Instruction Type:Patient Education How to access health informa tion online - Detail Indication:Non-smoker Start:14-Jul-2019 Instruction Type:Patient Education Patient Instructions Indication:Non-smoker Start:14-Jul-2019 Instruction Type:Provider Instructions for Treatment Name Dates Details How to access health informa tion online Indication:Non-smoker Start:26-Aug-2019 Instruction Type:Patient Education How to access health informa tion online - Detail Indication:Non-smoker Start:26-Aug-2019 Instruction Type:Patient Education Patient Instructions Indication:Non-smoker Start:26-Aug-2019 Instruction Type:Provider Instructions for Treatment How to access health informa tion online Indication:BMI 27.0-27.9,adult Start:09-Aug-2019 Instruction Type:Patient Education How to access health informa tion online - Detail Indication:BMI 27.0-27.9,adult Start:09-Aug-2019 Instruction Type:Patient Education Patient Instructions Indication:BMI 27.0-27.9,adult Start:09-Aug-2019 Instruction Type:Provider Instructions for Treatment How to access health informa tion online Indication:Non-smoker Start:14-Jul-2019 Instruction Type:Patient Education How to access health informa tion online - Detail Indication:Non-smoker Start:14-Jul-2019 Instruction Type:Patient Education Patient Instructions Indication:Non-smoker Start:14-Jul-2019 Instruction Type:Provider Instructions for Treatment Additional Source Comments INFORMATION SOURCE (unrecogn ized section and content) DATE CREATED AUTHOR AUTHOR'S ORGANIZ ATION 08/08/2018 [place] [facility] DATE CREATED AUTHOR AUTHOR'S ORGANIZ ATION 02/01/2022 [facility] FOR RECORDS PERTAINING TO PATIENTS WHO ARE OR HAVE BEEN ENROLLED IN A CHEMICAL DEPENDENCY/SUBSTANCEABUSE PROGRAM, SOME INFORMATION MAY BE OMITTED. This clinical summary was aggregated from multiple sources. Caution should be exercised in using it in the provision of clinical care. This summary normalizes information from multiple sources, and as a consequence, information in this document may materially change the coding, format and clinical context of patient data. In addition, data may be omitted in some cases. CLINICAL DECISIONS SHOULD BE BASED ON THE PRIMARY CLINICAL RECORDS. [employer] provides no warranty or guarantee of the accuracy or completeness of information in this document.
== END | disposition home or self-care (01) ==
LOC: CVS 13:53
PROVIDERS: PCP Internal Medicine; Referring Provider Internal Medicine; Visit Provider Internal Medicine
DX: R94.31 Abnormal electrocardiogram [ECG] [EKG] (principal)
CPT/HCPCS: 93306; Q9957; A4216; C8929

== ENCOUNTER → 2023-08-26 | Outpatient (CLI) | payer MEDICARE, SELFPAY ==
--- NOTE | 2023-08-26 10:49 | BD_ITS ---
STUDY: DUAL ENERGY X-RAY ABSORPTIOMETRY / DXA REASON FOR EXAM: Female, 78 years old. 627.8Menopausal postmenopausal BONE DENSITY REASON FOR EXAM TECHNIQUE: Bone Mineral Density (BMD) measurements of lumbar spine and bilateral hips were obtained. COMPARISON: Comparison is made with prior study dated August 21, 2021 FINDINGS: Lumbar Spine (L1-L4): g/cm2 (0.938) / T-score (-1.0) / Z-score (1.5) Findings are suggestive of normal bone density with a low fracture risk. Left Femur Total: g/cm2 (0.880) / T-score (-0.5) / Z-score (1.4) Left Femoral Neck: g/cm2 (0.654) / T-score (-1.8) / Z-score (0.4) Right Femur Total: g/cm2 (0.906) / T-score (-0.3) / Z-score (1.6) Right Femoral Neck: g/cm2 (0.633) / T-score (-1.9) / Z-score (0.2) The T-Scores on the most recent prior examination were: Lumbar Spine (L1-L4): There has been improvement of bone density since the previous examination. Left Femur Total: which represents an improvement of 3.1%. Right Femur Total: which represents an improvement of 1%. BD/Dexa Bone Density Study IMPRESSION: The patient is considered osteopenic as outlined below according to World Michael Organization (WHO) criteria with a moderate fracture risk. There has been improvement of bone density since the previous examination. Reference Information: The T-score is the number of standard deviations above or below the standard which is normal for young adults at their peak bone mineral density. The World Health Organization (WHO) interprets the T-scores as follows: Above -1 Normal bone density Between -1 and -2.5 Osteopenia Equal to / or below -2.5 Osteoporosis As a practical clinical guideline, osteopenia may be graded as follows: Mild -1 through -1.5 Moderate -1.6 through -2.0 Severe -2.1 through -2.4 The Z-score is the number of standard deviations above or below age-matched controls. A Z-score of less than -1.5 would be considered abnormal. References: 1. NIH Osteoporosis and Related Bone Diseases www osteo.org 2. International Society for Clinical Densitometry www iscd.org 3. National Osteoporosis Foundation www nof.org Electronically Signed: Elbert Givesn MD at 10:43 EDT ,
== END | disposition home or self-care (01) ==
LOC: OPBD 10:45
PROVIDERS: PCP Internal Medicine; Referring Provider Internal Medicine; Visit Provider Internal Medicine
DX: Z78.0 Asymptomatic menopausal state (principal)
CPT/HCPCS: 77080

== ENCOUNTER → 2024-02-13 | Outpatient (CLI) | payer MEDICARE, SELFPAY ==
--- NOTE | 2024-02-13 07:30 | MRI_ITS ---
EXAM: MR HEAD WITHOUT AND WITH INTRAVENOUS CONTRAST CLINICAL INDICATION: R VISUAL DEFECT LOSING PERIPHERAL VISION TECHNIQUE: Multiplanar and multisequence MR images of the brain were obtained without and with intravenous contrast. CONTRAST: 13 cc of Clariscan IV. COMPARISON: Head CT 03/23/2020. FINDINGS: BRAIN AND EXTRA-AXIAL SPACES: Abnormal T2 signal in the deep cerebral white matter is consistent with chronic small vessel ischemic/degenerative changes. The cerebral and cerebellar sulci are prominent consistent with brain atrophy. Craniocaudal dimension of the optic chiasm on the high resolution coronal image is 1.1 mm which is decreased suggesting atrophy. No intra- or extra-axial hemorrhage. No intracranial mass or mass effect. Basal cisterns are patent. SELLA: Unremarkable. Normal sella turcica, pituitary gland, infundibular stalk, optic chiasm and hypothalamus. AUDITORY SYSTEM: Unremarkable. The internal auditory canals are patent. BONES/JOINTS: Unremarkable. No discrete lytic or blastic abnormalities. SINUSES: Unremarkable as visualized. Clear. MASTOID AIR CELLS: Unremarkable as visualized. Clear. ORBITS: Unremarkable as visualized. Both globes, extraocular muscles, optic nerves and retrobulbar fat appear unremarkable. VASCULATURE: Unremarkable as visualized. Normal flow voids in the major intracranial circulation. MRI/Brain W/WO Contrast IMPRESSION: 1. Craniocaudal dimension of the optic chiasm on the high resolution coronal image is 1.1 mm which is decreased suggesting atrophy. No adjacent mass is identified. 2. No acute intracranial abnormality. 3. Chronic small vessel ischemic/degenerative changes. 4. Cerebral and cerebellar atrophy. Electronically Signed: Meño Leos MD at 1:19 EST ,
[2024-02-13 08:02] LABS: CREATININE FINGERSTICK < 1.0 mg/dL (0.55-1.02); EGFR FINGERSTICK > 60.0000 mL/min (>60)
== END | disposition home or self-care (01) ==
LOC: MRI 07:08
PROVIDERS: PCP Internal Medicine; Referring Provider Ophthalmology; Visit Provider Ophthalmology
DX: H53.461 Homonymous bilateral field defects, right side (principal); I63.9 Cerebral infarction, unspecified
CPT/HCPCS: 70553; A9575

== ENCOUNTER → 2024-03-08 | Outpatient (CLI) | payer MEDICARE, SELFPAY ==
--- NOTE | 2024-03-08 14:03 | CDU_ITS ---
Reason For Study: Homonymous bilateral field defects, right side Rt. Velocities/BP Lt. Velocities/BP Prox CCA 58.9/6 cm/sec. Prox CCA 50/9.9 cm/sec. Mid CCA 40.9/8.8 cm/sec. Mid CCA 48.2/9.9 cm/sec. Dist CCA 37.8/8.1 cm/sec. Dist CCA 46.5/8.1 cm/sec. Prox ICA 45.6/11.6 cm/sec. Prox ICA 50.9/11.6 cm/sec. Mid ICA 57.8/17.7 cm/sec. Mid ICA 72.7/22.1 cm/sec. Dist ICA 101/20.6 cm/sec. Dist ICA 95.1/21.3 cm/sec. Rt. ICA/CCA = 2.47. Lt. ICA/CCA = 1.97. Prox ECA 57/5.5 cm/sec. Prox ECA 65.7/5.5 cm/sec. Rt. Vert. 42.1/9 cm/sec. Lt. Vert. 45.6/14.5 cm/sec. Right Extracranial There is intimal thickening but no significant atherosclerotic plaque noted in the right common carotid artery. There is intimal thickening but no significant atherosclerotic plaque noted in the right internal carotid artery. The right internal carotid artery is very tortuous. There is intimal thickening but no significant atherosclerotic plaque noted in the right external carotid artery. Antegrade flow is noted in the right vertebral artery. Left Extracranial There is intimal thickening but no significant atherosclerotic plaque noted in the left common carotid artery. There is intimal thickening but no significant atherosclerotic plaque noted in the left internal carotid artery. The left internal carotid artery is very tortuous. There is heterogeneous, irregular atherosclerotic plaque noted in the left external carotid artery. Antegrade flow is noted in the left vertebral artery. Procedure Carotid Duplex [id number]. This is a Carotid Duplex examination using B-mode, color flow and specral Doppler. Exam performed in department. VL/Carotid Duplex Ultrasound Interpretation Summary No significant atherosclerotic plaque or stenosis noted in the internal carotid arteries bilaterally. Flow within the vertebral arteries is antegrade bilaterally. Ordering Physician: Rashawn Rutherford Referring Physician: Odalys Garcia M.D. Performed By: Rosa Bates RVT
== END | disposition home or self-care (01) ==
LOC: CVS 14:02
PROVIDERS: PCP Internal Medicine; Referring Provider Ophthalmology; Visit Provider Ophthalmology
DX: H53.461 Homonymous bilateral field defects, right side (principal)
CPT/HCPCS: 93880

== ENCOUNTER 2024-03-23 09:57 | Emergency (ER) | payer MEDICARE, SELFPAY ==
[2024-03-23 10:14] VITALS: BP 153/74; PULSE 63; RESP 17; TEMP 36.4; O2SAT 99
--- NOTE | 2024-03-23 11:44 | RAD_ITS ---
PROCEDURE: LUMBAR SPINE 2 OR 3 VIEWS REASON FOR EXAM: Sciatica, pain. TECHNIQUE: 2 view(s) of the lumbar spine COMPARISON: None. RAD/Lumbar Spine 2 or 3 Views IMPRESSION: Mild degenerative changes are seen of the visualized lower thoracic spine, incl uding DISH, as well. Lumbar degenerative disc disease is most prominent in the mid to lower lumbar s pine. At least mild disc narrowing is seen at L3-L4, moderately severe at L4-L5 and L5-S1 levels. Lower lumbar posterior facet hypertrophy is seen. No evidence of spondylolysis. No significant degree of subluxation is seen. Mild right and minimal left sacroiliac joint degenerative changes are noted. No fracture site is evident. Reading Location: [id number]
--- NOTE | 2024-03-23 11:45 | VDLE_ITS ---
Reason For Study Reason For Study: LLE Pain Procedure LEFT This is a venous duplex using B-mode, color flow and GSV is normal. spectral Doppler. CFV is compressible, spontaneous, competent, and Exam performed portable in ED. demonstrates pulsatile venous flow. The exam was diagnostic. FV is compressible, spontaneous, competent and A preliminary report was called and/or faxed to ED RN demonstrates pulsatile venous flow. Jeanne. POP V is compressible, spontaneous, phasic, competent and demonstrates normal augmentation. T/P Trunk is compressible. PTV is compressible. LT PerV is compressible. VL/Venous Duplex US, Unilateral Interpretation Summary Deep veins of the left lower extremity are patent and compressible segmentally. There is no evidence of left lower extremity deep vein thrombosis. Valvular competence appears intact within the p roximal deep venous system on the left . The left great saphenous vein appears patent and compressible segmentally. Puls atile flow is noted in the deep venous system, which may be indicative of elevated central venous pressure (i.e. conge stive heart failure, pulmonary hypertension, etc.). Clinical correlation is advised. Ordering Physician: Aydin Ly Referring Physician: Odalys Garcia Performed By: Eliot Garay RVT
--- NOTE | 2024-03-23 11:52 | EDS_ITS ---
HPI History of Present Illness Chief Complaint: Back Narrative Narrative: 38-year-old female who denies significant past medical history presents with left lower extremity leg pain. Has been going on for about a week but worsened over the last day or 2. She denies any recent falls. No fevers or chills, no loss of bowel or bladder, no saddle anesthesia. She does not really have back pain or buttocks pain. She had pain that radiated to her anterior thigh additionally, it got worse. She now has pain that radiates down her leg and in her posterior leg. She denies any overt swelling, but her daughter who is an [employer] had her flex and dorsiflex her foot and noted a positive Homans' sign so she brought her in with concern for DVT. [facility] Medical History Encounter for screening for COVID-19 Encounter for screening for COVID-19 Home Medications ?Medication ?Instructions ?Recorded ?Last Taken ?Type etodolac 400 mg tablet 400 mg PO PRN PRN Leg Cramps 03/08/20 Unknown History meclizine 25 mg tablet 25 mg PO PRN PRN Dizziness 0 03/08/20 Unknown History omega-3 fatty acids-fish oil 340 1 ea PO DAILY 1 Unknown History mg-1,000 mg capsule potassium 99 mg tablet 99 mg PO DAILY 03/08/20 Unkn own History trazodone 50 mg tablet 50 mg PO QHS 03/08/20 Unknow n History hydrochlorothiazide 25 mg tablet 25 mg PO DAILY #30 ta bs 03/09/20 Unknown Rx levothyroxine 25 mcg tablet 50 mcg (2 x 25 mcg) PO EARLINE LY ##0 03/09/20 Unknown Rx simvastatin 10 mg tablet 10 mg PO QHS ##0 03/09/20 Un known Rx calcium carbonate (Tums) 200 mg PO .PRN 01/09/21 Unkn own History cranberry 400 mg capsule 400 mg PO DAILY 01/09/21 Unk nown History melatonin 3 mg capsule 3 mg PO HS PRN 01/09/21 Unkn own History multivitamin (Daily Multi-Vitamin 1 tab PO DAILY 01/09 Unknown History tablet) hydrocodone-acetaminophen 5-325mg 1 tab PO Q6H PRN PRN Pain 3 days 03/23/24 Unknown Rx 5mg-325mg #12 TABLETS Allergy/AdvReac Type Severity Reaction Status Date / Time No Known Allergies Allergy Verified 03/23/24 10:16 Social History Smoking Status: Never smoker ROS ROS ED ROS Narrative Review of systems positive for left posterior leg pain, previously left anterior thigh pain. Pain radiating down the leg, mainly posteriorly. Denies chest pain or shortness of breath, no loss of bowel or bladder, no saddle anesthesia, no red flag signs for cauda equina. No fevers or chills. Positive pain in calf when flexing and dorsiflexing left foot. EXAM Physical Exam Narrative Exam Narrative: Afebrile. Vital signs noted. Nontoxic-appearing. Patient examined in wheelchair/howard bed initially. Cardiovascular examination reveals a regular rate and rhythm. Lungs are clear to auscultation bilaterally. Abdomen is soft and nontender with positive bowel sounds. Mild tenderness to palpation left posterior thigh. She appears neurovascularly intact distally with palpable dorsalis pedis pulse left lower extremity, no overt swelling or erythema. No vertebral point tenderness or bony step-off of lumbar spine. No pain in sciatic notch of buttocks. Const Vital Signs: 03/23/24 10:14 Temperature 97.5 F L Temperature Source Temporal Pulse Rate 63 Respiratory Rate 17 Blood Pressure 153/74 H Blood Pressure Mean 100 Pulse Ox 99 Oxygen Delivery Method Room Air MDM MDM MDM Narrative Medical decision making narrative: Differential diagnosis does include but not limited to sciatica secondary to spinal stenosis versus cauda equina syndrome versus DVT. I have very low suspicion for cauda equina based on her history and physical examination as it does not support this. I do not feel she needs emergent MRI imaging. She was given 1 [place] tablet here for analgesia as a state ibuprofen has been ineffective in treating her pain. X-rays of the lumbar spine will be obtained to rule out fracture but I anticipate that she would have some degree of DJD. Ultrasound will be obtained to rule out DVT. Preliminary report of the DVT study is negative for DVT. On my independent interpretation of her lumbar x-rays there are degenerative changes noted. No acute fracture. I reviewed the radiology report which confirms my independent interpretation. Upon repeat examination at approximately 1350, I performed straight leg raising of her left leg which is negative as she is on the cot now. She feels improved. I do feel that given her lumbar disc disease, she may also have spinal stenosis which is causing more of a sciatica pain. She has a foll ow-up appointment with her primary care provider in 2 days. She was written a prescription for [place]. She will follow-up with her primary care provider. Return instructions reviewed. Disposition is discharged home in stable condition. History & Record Review Discussion w/independent historian: Patient and Family Radiography Diagnostic Testing: Clinical Impression(s) from Imaging Studies Lumbar Spine X-Ray 03/23/24 11:44 IMPRESSION: Mild degenerative changes are seen of the visualized lower thoracic spine, including DISH, as well. Lumbar degenerative disc disease is most prominent in the mid to lower lumbar spine. At least mild disc narrowing is seen at L3-L4, moderately severe at L4-L5 and L5-S1 levels. Lower lumbar posterior facet hypertrophy is seen. No evidence of spondylolysis. No significant degree of subluxation is seen. Mild right and minimal left sacroiliac joint degenerative changes are noted. No fracture site is evident. Reading Location: [address] Discharge Plan Triage Chief Complaint: Back ED Provider: Aydin Ly Dx/Rx/DC Orders Clinical Impression: Leg pain, left, Lumbar disc disease with radiculopathy Instructions: ED Degenerative Disk Disease, ED Sciatica Prescriptions: New hydrocodone-acetaminophen 5-325 mg tablet 1 tab PO Q6H PRN PRN (Reason: Pain) 3 Days Qty: 12 0RF No Action multivitamin [Daily Multi-Vitamin] Tablet 1 tab PO DAILY calcium carbonate [Tums] 200 mg calcium (500 mg) tablet,chewable 200 mg PO .PRN cranberry 400 mg capsule 400 mg PO DAILY Rx Instructions: administer with a meal melatonin 3 mg capsule 3 mg PO HS PRN trazodone 50 MG tablet 50 mg PO QHS potassium 99 MG tablet 99 mg PO DAILY meclizine 25 MG tablet 25 mg PO PRN PRN (Reason: Dizziness) etodolac 400 MG tablet 400 mg PO PRN PRN (Reason: Leg Cramps) omega-3 fatty acids-fish oil 1 EACH capsule 1 ea PO DAILY simvastatin 10 MG tablet 10 mg PO QHS Qty: 0 0RF levothyroxine 25 MCG tablet 50 mcg PO DAILY Qty: 0 0RF hydrochlorothiazide 25 MG tablet 25 mg PO DAILY Qty: 30 0RF Primary Care Provider: Odalys Garcia Referrals: Odalys Garcia DO [Primary Care Provider] - 2 Days Activity Restrictions/Additional Instructions: Return with fever, loss of bowel or bladder, new or worsening symptoms. Print Language: Icelandic Disposition Disposition: Home, Self Care
[2024-03-23] MEDS: HYDROcodone Bitartrate/Apap 5/325 Tablet PO (11:57)
[2024-03-23 14:02] VITALS: BP 137/89; PULSE 75; RESP 16; TEMP 36.6; O2SAT 100
== END 2024-03-23 14:02 | disposition home or self-care (01) ==
PROVIDERS: Emergency Provider Emergency Medicine; PCP Internal Medicine; Visit Provider Emergency Medicine
DX: M51.16 Intervertebral disc disorders with radiculopathy, lumbar region (principal); M79.605 Pain in left leg
CPT/HCPCS: 72100; 93971; 99283

== ENCOUNTER 2024-04-15 11:00 | Outpatient (RCR) | payer MEDICARE, SELFPAY ==
--- NOTE | 2024-03-30 13:04 | HP.PTEVAL ---
Patient's Visit Information Visit Information Visit Information: MONICA RASCON is a 78 year old F referred to Physical Therapy by Dr. Odalys Garcia DO with a diagnosis of DDD with L LE radiculopathy. Date of Evaluation: 03/30/24 Physical Therapist: Slick Joshi, PT, ATC Visit Plan Frequency: 2x /Week Duration: 4-6 Weeks Plan: Postural edu, SKTC/DKTC, core strengthening, nustep, and HEP Subjective Subjective: Pt reports she has had LBP in the past. Pt notes she had PT in 2021 for her LBP which helped, but then she stopped coming. Pt reports this episode began a couple weeks ago. Pt denies having any LBP over this time span, but notes her L LE radiculopathy was severe. Pt notes she had to go tot the ER secondary to her pain. Pt has now been on an anti-inflammatory since and notes the pain is much better. Pt reports her pain is worse in the mornings. Pt also notes prolonged standing and walking tend to increase her pain. Sitting helps to decrease her pain. Pt has had recent x-rays which revealed DDD. Pt reports her pain will awaken her when her pain meds wear off. Pt reports occasional L LE radiculopathy which extends to her toes when she walks. 0/10 pain at rest, 9/10 pain at worst Pain L leg pain: Pain Intensity (Out of 10): 0 Pain Intensity Range: 9 Objective Objective: Neuro: B LE sensation is WNL to light touch. ROM: Moderate limitation with ext. MMT: L knee flex and ext 4/5. All other B LE MMT 5/5 throughout Repeated movements: Prone prop progression increases pain. SKT/DKTC decreases pain TU sec Balance/Special Test Scores Oswestry Low Back Score: 9 Goals Goal 1:: Decrease LBP x 50% to aid with sleep Goal Time Frame: 4-6 Weeks Goal 2:: Decrease the frequency and intensity of L LE radiculopathy x 50% to aid with ambulation Goal Time Frame: 4-6 Weeks Goal 3:: Perform the TUG test in under 20 sec Goal Time Frame: 4-6 Weeks Goal 4:: I with HEP Goal Time Frame: 4-6 Weeks Rehabilitation Potential Physical Therapy Diagnosis: Pt has L LE radiculopathy, LBP, and limited L/S ext ROM secondary to DDD Rehabilitation Potential: Good Anticipated Interventions Patient/Client Instruction: Educate patient on: Condition and Plan of Care For the Purpose of:: To improve self management Therapeutic Exercise to Include: Strength training, Endurance training, Body mechanics, Postural training, Flexibilty training and Dynamic Lumbar Stabilization For the Purpose of:: To decrease pain, To improve muscle performance and motor function, To improve ability to perform ADL's and To improve gait and locomotor functions Text: Thank you for the opportunity to evaluate your patient. For Medicare and Medicare HMO plans, please review the plan of care and approve it. It will need to be FAXED BACK to us at [phone] for Medicare purposes. For Medicare only, by signing this I certify the plan of care. Please let me know if there are questions or concerns regarding this plan of care. Physician Signature: Date:
--- NOTE | 2024-04-15 11:23 | HP.PTDCSUM ---
Discharge Summary D/C summary: It has been my pleasure to treat MONICA RASCON referred by Dr. Odalys Garcia DO, with the diagnosis of DDD with L LE radiculopathy for a total of 5 visit(s). Discharge Date: Please see the following information for a summary of their discharge status. Subjective Subjective: I am all better now. I dont have any pain Pain L leg pain: Pain Intensity (Out of 10): 0 Overall Improvement % Improvement: 100 Objective Objective/Function: LBP 0/10 No L LE radiculopathy at this time. TU.45 sec Pt is I with HEP Goals Goal 1:: Decrease LBP x 50% to aid with sleep Goal Progress: Goal Met Goal 2:: Decrease the frequency and intensity of L LE radiculopathy x 50% to aid with ambulation Goal Progress: Goal Met Goal 3:: Perform the TUG test in under 20 sec Goal Progress: Goal Met Goal 4:: I with HEP Goal Progress: Goal Met Plan Plan: Discharge to HEP D/C Information d/c sentence: If there are questions or concerns regarding this patient's physical therapy, please feel free to call me at [phone]. Thank you for the referral of this patient. Sincerely, Slick Joshi, PT, ATC Balance/Gait/Functional tests Balance/Special Test Scores Oswestry Low Back Score: 4 Improvement % Improvement: 100
== END 2024-04-15 12:21 | disposition home or self-care (01) ==
LOC: PT 11:00
PROVIDERS: PCP Internal Medicine; Referring Provider Internal Medicine; Visit Provider Internal Medicine
DX: M54.32 Sciatica, left side (principal); M51.369 Other intervertebral disc degeneration, lumbar region without mention of lumbar back pain or lower extremity pain
CPT/HCPCS: 97110; 97161; 97530